=== PATIENT | male | born 1950 | race Caucasian/White ===

== ENCOUNTER 2016-05-21 09:11 | Inpatient (IN) | payer OTHER ==
[2016-05-10 08:53] VITALS: BMI 29.0
--- NOTE | 2016-05-10 09:27 | PAT Medication Instructions ---
Service Date May 10, 2016. Current Home Medication List Acetaminophen (Tylenol), 650 MG PO PRN Albuterol Inhaler (Ventolin Inhaler), 2 PUFFS INH Q4 PRN for SOB/Wheezing Amlodipine Besylate (Norvasc), 10 MG PO QAM Aspirin Enteric Coated (Ecotrin Or Generic *), 81 MG PO QAM Atorvastatin (Lipitor), 80 MG PO QPM Folic Acid (Folvite *), 1 MG PO QAM Hctz/Losartan (Hyzaar 25MG/100MG), 1 TAB PO QAM Ibuprofen (Advil), 600 MG PO PRN Metoprolol Tartrate (Lopressor) (Lopressor), 50 MG PO BID Nitroglycerin (Nitrostat), 0.4 MG UT UD PRN for Chest Pain Polyethylene Glycol-Propylene (Systane Ultra), 1 DROPS OP QID PRN for dry eyes Tiotropium Desha (Spiriva Handihaler), 1 CAP INH QAM Medication Instructions For Your Scheduled Surgery - Continue as directed: Nitroglycerin (Nitrostat), 0.4 MG UT UD PRN for Chest Pain - Hold the following medications the morning of surgery: Hctz/Losartan (Hyzaar 25MG/100MG), 1 TAB PO QAM Folic Acid (Folvite *), 1 MG PO QAM Ibuprofen (Advil), 600 MG PO PRN - Take the following medications the morning of surgery with a sip of water OTHERWISE NOTHING TO EAT OR DRINK AFTER MIDNIGHT: Amlodipine Besylate (Norvasc), 10 MG PO QAM Aspirin Enteric Coated (Ecotrin Or Generic *), 81 MG PO QAM Tiotropium Desha (Spiriva Handihaler), 1 CAP INH QAM Albuterol Inhaler (Ventolin Inhaler), 2 PUFFS INH Q4 PRN for SOB/Wheezing (use if needed; BRING TO HOSPITAL) Acetaminophen (Tylenol), 650 MG PO PRN (may take if needed up to 4 hours prior to surgery) Metoprolol Tartrate (Lopressor) (Lopressor), 50 MG PO BID Polyethylene Glycol-Propylene (Systane Ultra), 1 DROPS OP QID PRN for dry eyes - Take the following medications as scheduled the night before surgery: Atorvastatin (Lipitor), 80 MG PO QPM Albuterol Inhaler (Ventolin Inhaler), 2 PUFFS INH Q4 PRN for SOB/Wheezing Acetaminophen (Tylenol), 650 MG PO PRN Metoprolol Tartrate (Lopressor) (Lopressor), 50 MG PO BID Polyethylene Glycol-Propylene (Systane Ultra), 1 DROPS OP QID PRN for dry eyes If you have any questions please call us at [phone] (Vickie Osorio PA-C ) or [phone] or [phone]
[2016-05-10 10:57] LABS: BASO % 1.2 %; BASO ABS # 0.11 K/uL (0-0.2); COMPLETE YES; EOS % 2.1 %; HEMATOCRIT 44.8 % (42-52); IG% 0.2 %; LYMPH % 28.8 %; LYMPH ABS # 2.74 K/uL (1.2-3.4); MEAN CELL VOLUME 91.6 fL (80-100); MEAN CORPUSCULAR HEMOGLOBIN 32.5 pg (25-34); MEAN CORPUSCULAR HGB CONC 35.5 g/dl (32-36); MONO % 7.3 %; NEUT % 60.4 %; PLATELET COUNT 281 K/uL (130-400); RED BLOOD COUNT 4.89 M/uL (4.7-6.1)
[2016-05-10 10:59] LABS: URINE APPEARANCE CLEAR (CLEAR); URINE BILIRUBIN NEG (NEG); URINE COLOR YELLOW; URINE NITRITE NEG (NEG); URINE SPECIFIC GRAVITY 1.002 (1.000-1.030); UROBILINOGEN NEG (NEG)
[2016-05-10 11:05] LABS: MANUAL MICROSCOPIC REQUIRED? NO; REVIEW REQ? NO
[2016-05-10 11:21] LABS: BUN/CREATININE RATIO 13.2 (10-20); CALCIUM 10.4 mg/dl (8.5-10.1); CREATININE 1.5 mg/dl (0.60-1.40); POTASSIUM 4.4 mmol/L (3.5-5.1)
[~2016-05-21] VITALS: Ht 165.1 cm; Wt 79.3 kg
[2016-05-21] VITALS (10 sets, daily range): BP systolic 102–170; BP diastolic 67–80; PULSE 75–105; TEMP 36.3–37.1; O2SAT 94–100; Ht 165.1 cm; Wt 79.3 kg
--- NOTE | 2016-05-21 07:30 | History & Physical Bridge Note ---
H&P Re-Evaluation Bridge Note: I have examined the patient, reviewed the History & Physical and in the interval since the performance of the History & Physical I have noted the following changes of clinical significance: No changes noted
[~2016-05-21 09:11] MED LIST: ACET-1311 PO; ALBUAER19 INH; AMLO10TA2 PO; ASPEC81 PO; ATOR-26 PO; FENTANYL CITRATE INJ 50 MCG/1 ML 2 ML VIAL ONE; FLV1 PO; HYZ/10015 PO; IBUP-1050 PO; LACTATED RINGER'S 1000ML 1,000 ML IV SCH; METO50TA16 PO; MIDAZOLAM HCL 1 MG/ML 2ML VIAL ONE; NITR0.4S UT; POLY1SOL6 OP; SPRIN/30 INH
[2016-05-21] MEDS ORDERED: NURSING VERBAL MED ORDER ONE ×2 (09:45→10:00)
[2016-05-21] MEDS ORDERED: CEFAZOLIN IV 2,000 MG/60 ML D5W IV ONE (09:47)
--- NOTE | 2016-05-21 10:15 | History and Physical ---
History & Physical Date & Time of Service: May 21, 2016 at 10:10 Chief Complaint: Lumbar Spinal Stenosis Primary Care Physician: Earl Simmons M.D. History of Present Illness Source: patient Patient with Hx of a fusion L5-S1 in 2009 presents with worsening back and left leg pain. Failed conservative measures presents for surgery. Past Medical/Surgical History Medical Problems: (1) Asbestos pneumoconiosis Status: Chronic (2) CAD (coronary artery disease) Permanent Comment: S/p CABG x 2 in 2003 Cardiac cath 2009 showed patent ARREDONDO to LAD, 70% stenosis of the LAD distal to the touchdown of the ARREDONDO graft, occluded vein graft to the RPDA Nuclear stress test 10/2013- negative for ischemia, normal LVEF Status: Chronic (3) Carotid stenosis, non-symptomatic Status: Chronic (4) COPD (chronic obstructive pulmonary disease) Status: Chronic (5) History of colonic polyps Status: Chronic (6) Hyperlipidemia Status: Chronic (7) Hypertension Status: Chronic Surgical Problems: (1) S/P CABG x 2 Status: Chronic (2) S/P lumbar spinal fusion Status: Chronic Family History FH: CAD (coronary artery disease) FATHER MOTHER Hypertension FATHER MOTHER Social History Smoking Status: Former Smoker Marital Status: Housing status: lives with family Immunizations History of Influenza Vaccine: Yes History of Tetanus Vaccine?: Yes History of Pneumococcal: Yes History of Hepatitis B Vaccine: No Allergies Coded Allergies: No Known Allergies (Unverified , 05/21/16) Home Medications Scheduled Acetaminophen (Tylenol), 650 MG PO PRN Amlodipine Besylate (Norvasc), 10 MG PO QAM Aspirin Enteric Coated (Ecotrin Or Generic *), 81 MG PO QAM Atorvastatin (Lipitor), 80 MG PO QPM Folic Acid (Folvite *), 1 MG PO QAM Hctz/Losartan (Hyzaar 25MG/100MG), 1 TAB PO QAM Ibuprofen (Advil), 600 MG PO PRN Metoprolol Tartrate (Lopressor) (Lopressor), 50 MG PO BID Tiotropium Limon (Spiriva Handihaler), 1 CAP INH QAM Scheduled PRN Albuterol Inhaler (Ventolin Inhaler), 2 PUFFS INH Q4 PRN for SOB/Wheezing Nitroglycerin (Nitrostat), 0.4 MG UT UD PRN for Chest Pain Polyethylene Glycol-Propylene (Systane Ultra), 1 DROPS OP QID PRN for dry eyes Physical Exam Vital Signs Date Time Temp Pulse Resp B/P Pulse Ox O2 Delivery O2 Flow Rate FiO2 05/21/16 09:47 37.1 75 18 170/80 97 Room Air General Appearance: WD/WN Head: normocephalic Eyes: normal inspection ENT: normal ENT inspection Neck: supple, no adenopathy Respiratory/Chest: chest non-tender, lungs clear Cardiovascular: regular rate, rhythm, no edema Abdomen/GI: normal bowel sounds, non tender Genitourinary - Male: normal male genitalia, normal phallus Back: + muscle spasm Extremities/Musculoskelatal: normal inspection, no calf tenderness 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 Will proceed with removal of hardware L5-S1, decompress and fuse L3to L5, possibly S1. Advanced Directives Existing Advance Directive: No Existing Living Will: Yes Existing Power of Belting Cutter: Yes
[2016-05-21] MEDS ORDERED: ONDANSETRON INJ 2 MG/ML 2 ML VIAL IV PRN ×2 (10:30→12:30)
[2016-05-21] MEDS ORDERED: ATROPINE SULFATE 0.1 MG/ML 5ML SYR IV PRN (10:30)
[2016-05-21] MEDS ORDERED: LABETALOL HCL IV 5 MG/ML 20ML IV PRN (10:30)
[2016-05-21] MEDS ORDERED: HYDROmorphone INJ 2 MG/ML SYR/VIAL ONE (10:48)
[2016-05-21] MEDS ORDERED: BUPIVACAINE/EPINEPHRINE 0.5% MPF 1:200,000 30 ML VIAL INJ ONE (11:07)
[2016-05-21] MEDS ORDERED: DEXAMETHASONE SOD INJ 4 MG/ML VIAL ONE (11:14)
[2016-05-21] MEDS ORDERED: PHENYLEPHRINE HCL INJ 10 MG/ML VIAL ONE (11:14)
[2016-05-21] MEDS ORDERED: ROCURONIUM BROMIDE 10 MG/ML 5 ML VIAL ONE (11:14)
[2016-05-21] MEDS ORDERED: PHENYLEPHRINE 100MCG/ML 5ML SYR ONE (11:14)
[2016-05-21] MEDS ORDERED: LIDOCAINE HCL 2% 2 ML VIAL (20MG/ML) ONE (11:14)
[2016-05-21] MEDS ORDERED: PROPOFOL IV EMULSION 10 MG/ML 20 ML VIAL IV ONE (11:14)
[2016-05-21] MEDS ORDERED: LARYING-O-JET KIT (LTA) EXT ONE ×2 (11:47)
[2016-05-21] MEDS ORDERED: FENTANYL CITRATE INJ 50 MCG/1 ML 2 ML VIAL ONE (12:16)
[2016-05-21] MEDS ORDERED: FLOSEAL HEMOSTATIC MATRIX 10ML TOP ONE (12:23)
[2016-05-21] MEDS ORDERED: BACITRACIN 50000 UNIT VIAL IR ONE (12:23)
[2016-05-21] MEDS ORDERED: SODIUM CHLORIDE 0.9% 1000ML 1,000 ML IV SCH (12:26)
--- NOTE | 2016-05-21 12:26 | [facility] Post Operative Brief Note ---
Immediate Operative Summary Operative Date May 21, 2016. Pre-Operative Diagnosis L3-L5 spinal stenosis, history of prior lumbar fusion L5-S1 Post-Operative Diagnosis same as preop Procedure(s) Performed L3-L5 Decompression and posterior instrumented fusion; L5-S1 hardware removal; L4-L5 application of interbody cage; use of bone morphogenetic protein and Eliane allograft Surgeon Dr. Chowdhury Outside Machinist Apprentice Surgeon(s) Jax Bhat PA-C Estimated Blood Loss 350 ML Findings stenosis Specimens A: Removed hardware L5-S1
[2016-05-21] MEDS ORDERED: LORAZEPAM 0.5 MG TAB PO PRN (12:30)
[2016-05-21] MEDS ORDERED: METOCLOPRAMIDE HCL INJ 5 MG/ML 2 ML VIAL IV PRN (12:30)
[2016-05-21] MEDS ORDERED: LORAZEPAM INJ 0.5 MG in SYRINGE 0.75 ML IV PRN (12:30)
[2016-05-21] MEDS ORDERED: MAGNESIUM HYDROXIDE SUSP 30 ML UDC PO PRN (12:30)
[2016-05-21] MEDS ORDERED: ACETAMINOPHEN IV 100 ML IV PRN (12:30)
[2016-05-21] MEDS ORDERED: NALOXONE HCL 0.4 MG/1 ML VIAL/CARP IV PRN ×2 (12:30)
[2016-05-21] MEDS ORDERED: DO NOT ADMINISTER FLU VACCINE PRN ×3 (12:30)
[2016-05-21] MEDS ORDERED: NITROGLYCERIN 0.4 MG SL PER TAB CHARGE UT PRN (12:30)
[2016-05-21] MEDS ORDERED: FAMOTIDINE 20 MG TAB PO PRN (12:30)
[2016-05-21] MEDS ORDERED: DO NOT ADMINISTER PNEUMOCOCCAL VACCINE PRN ×2 (12:30)
[2016-05-21] MEDS ORDERED: BISACODYL 10 MG SUPP PR PRN (12:30)
[2016-05-21] MEDS ORDERED: ALUMINUM/MAGNESIUM SUSP 30 ML UDC PO PRN (12:30)
[2016-05-21] MEDS ORDERED: hydrOXYzine HCL 25 MG TAB PO PRN (12:30)
[2016-05-21] MEDS ORDERED: PROMETHAZINE HCL INJ 12.5 MG in SODIUM CHLORIDE 0.9% 50ML 50 ML IV PRN (12:30)
[2016-05-21] MEDS ORDERED: SOD PHOSPHATE/SOD BIPHOSPHATE ENEMA 132 ML BTL PR PRN (12:30)
[2016-05-21] MEDS ORDERED: ACETAMINOPHEN 500 MG TAB PO PRN (12:30)
[2016-05-21] MEDS ORDERED: ALBUTEROL HFA 8 GM INHALER INH PRN (12:30)
--- NOTE | 2016-05-21 12:48 | OPERATIVE REPORT ---
DATE OF OPERATION: 05/21/2016 PREOPERATIVE DIAGNOSIS: Spinal stenosis. POSTOPERATIVE DIAGNOSIS: Same. PROCEDURE PERFORMED: 1. Removal of posterior instrumentation L5-S1. 2. Exploration of fusion L5-S1. 3. Lumbar decompression, medial facetectomies, foraminotomies L2-L3, L3-L4, L4-L5. 4. Posterior spinal fusion L3-L4, L4-L5. 5. Placement of posterior segmental instrumentation using Orthros rods and screws L3-L4, L4-L5. 6. Interbody fusion L4-L5. 7. Placement of PEEK cage 10 x 26 mm at L4-L5. 8. Placement of locally harvested morselized autograft posterior gutters. 9. Placement of Infuse collagen sponge combined with Mastergraft in posterior gutters and Eliane bone grafting in the interbody space. SURGEON: Dr. Gregg Chowdhury. BATTERY TECHNICIAN: Devyn Bhat PA-C. Due to the complex nature of the procedure, the entire surgery was performed with the assistant paralegal of Devyn Bhat PA-C. The bilingual sales assistant, under direct supervision, was involved in the actual performance of all aspects of the surgical procedure including hemostasis, tissue retraction and incision, instrument management, patient positioning, and wound closure. ANESTHESIA: General. DISPOSITION: The patient awakened and taken to PACU in stable condition. HISTORY OF PATIENT'S PROBLEMS: A 66-year-old male who presents with above-mentioned diagnosis. After failing an extensive course of nonoperative care, elected to undergo the above-mentioned procedure. Risks, benefits, pros, cons, and alternatives were outlined in detail preoperatively. OPERATION AND FINDINGS: PROCEDURE: The patient was met with preoperatively, case discussed and all questions were addressed. At that point the patient was taken back to operative suite and after undergoing successful general endotracheal intubation via department of anesthesia was placed in prone position on the Donato table on top of the Anirudh frame. All bony prominences were well padded and the eyes were inspected to ensure there was no external pressure placed upon them. At this point, the lumbar spine was prepped and draped in normal sterile fashion. Sharp dissection with the assistance of Bovie cautery was performed down to and exposing the lamina and transverse processes of L3, 4 and instrumentation at L5-S1 levels bilaterally. I then proceeded to remove the hardware at L5-S1 bilaterally exploring the fusion mass noting it to be intact. I then performed a complete laminectomy of 4, 3, partial laminectomy of L2 addressing severe lateral recess foraminal stenosis as well as marked epidural lipomatosis. After this was complete, pedicle screws were then placed in 3, 4, 5 bilaterally with the assistance of fluoroscopy and appropriate size fred provisionally placed. Through a transforaminal approach on the left a complete discectomy of L4-5 was performed, endplates curetted to subcortical bleeding bone and an 11 x 26 mm PEEK cage filled with Eliane bone grafting tapped into position. The rods were then locked into final position bilaterally and transverse processes of 3, 4, and 5 burred to subcortical bleeding bone. Infuse collagen sponge combined with Mastergraft and locally harvested morselized autograft was placed in the posterior gutters. A 7 flat NIRMALA drain was inserted. Incision was closed with 1-0 Vicryl in the fascia, 2-0 Vicryl subcutaneously, 4-0 Monocryl for final skin closure. Steri-Strips and sterile dressing placed. The patient was awakened and taken to PACU in stable condition. I attest to the content of the Intraoperative Record and any orders documented therein. Any exceptio ns are noted below.
[2016-05-21] MEDS ORDERED: HYDROmorphone HCL 0.5MG/ML 50 ML CASSETTE ONE (12:49)
[2016-05-21] MEDS: HYDROmorphone INJ 2 MG/ML SYR/VIAL IV PRN ×4 (12:55→13:10)
--- NOTE | 2016-05-21 13:04 | DIAGNOSTIC IMAGING REPORT ---
LUMBAR SPINE, INTRAOPERATIVE FLUOROSCOPY HISTORY: L3-L5 decompression fusion. FLUOROSCOPY TIME: 11 seconds. FINDINGS: Intraoperative fluoroscopy was provided for the lumbar spine. 2 fluoroscopic spot images were obtained. L3-L5 posterior decompression fusion with pedicle screws and rods. The hardware appears intact. IMPRESSION: Fluoroscopy provided for a L3-L5 posterior decompression and fusion. Electronically signed by: Chris Keith M.D. 05/21/2016 1:02 PM Dictated Date/Time: 05/21/2016 1:02 PM
--- NOTE | 2016-05-21 13:19 | Anesthesiology Progress Note ---
Anesthesia Post Op Note Date & Time May 21, 2016 at 13:19 Vital Signs Pain Intensity: 3 Vital Signs Past 12 Hours Date Time Temp Pulse Resp B/P Pulse Ox O2 Delivery O2 Flow Rate FiO2 05/21/16 13:15 89 14 107/71 97 Nasal Cannula 3 05/21/16 13:05 88 16 118/73 100 Mask 10 05/21/16 12:55 86 16 128/75 100 Mask 10 05/21/16 12:51 36.3 88 16 153/82 100 Mask 10 05/21/16 09:47 37.1 75 18 170/80 97 Room Air Notes Mental Status: alert / awake / arousable, participated in evaluation Pt Amnestic to Procedure: Yes Nausea / Vomiting: adequately controlled Pain: adequately controlled Airway Patency, RR, SpO2: stable & adequate BP & HR: stable & adequate Hydration State: stable & adequate Anesthetic Complications: no major complications apparent
[2016-05-21] MEDS: HYDROmorphone HCL 0.5MG/ML 50 ML CASSETTE IV PRN ×2 (15:06→22:49)
[2016-05-21] MEDS: LACTATED RINGER'S 1000ML 1,000 ML IV SCH ×2 (17:13→20:11)
[2016-05-21] MEDS: CEFAZOLIN IV 1,000 MG in DEXTROSE 5% 50ML 50 ML IV SCH (17:15)
[2016-05-21] MEDS: DEXAMETHASONE INJ 6 MG in SYRINGE 0 ML IV SCH (17:16)
[2016-05-21] MEDS: ATORVASTATIN 40 MG TAB PO SCH (20:43)
[2016-05-21] MEDS: METOPROLOL TARTRATE 50 MG TAB PO SCH (20:43)
[2016-05-21] MEDS: DOCUSATE SODIUM/SENNA 50/8.6MG TAB PO SCH (20:43)
[2016-05-22] MEDS: LACTATED RINGER'S 1000ML 1,000 ML IV SCH (00:51)
[2016-05-22] MEDS: DEXAMETHASONE INJ 6 MG in SYRINGE 0 ML IV SCH ×2 (02:08→10:39)
[2016-05-22] MEDS: CEFAZOLIN IV 1,000 MG in DEXTROSE 5% 50ML 50 ML IV SCH (02:09)
[2016-05-22 03:47] VITALS: BP 131/82; PULSE 94; TEMP 36.5; O2SAT 95
[2016-05-22] MEDS ORDERED: HYDROmorphone INJ 0.5 MG/0.5 ML SYR IV PRN (06:00)
[2016-05-22] MEDS ORDERED: DC PCA SCH (06:00)
[2016-05-22 06:05] LABS: COMPLETE YES; HEMATOCRIT 30.4 % (42-52); IG% 0.3 %; LYMPH % 10.8 %; LYMPH ABS # 1.26 K/uL (1.2-3.4); MEAN CELL VOLUME 92.7 fL (80-100); MEAN CORPUSCULAR HEMOGLOBIN 31.4 pg (25-34); MEAN CORPUSCULAR HGB CONC 33.9 g/dl (32-36); MEAN PLATELET VOLUME 9.4 fL (7.4-10.4); MONO % 7.5 %; NEUT % 81.4 %; PLATELET COUNT 207 K/uL (130-400); RED BLOOD COUNT 3.28 M/uL (4.7-6.1); WHITE BLOOD COUNT 11.65 K/uL (4.8-10.8)
[2016-05-22] MEDS ORDERED: NURSING VERBAL MED ORDER ONE (06:15)
[2016-05-22 06:36] LABS: BUN/CREATININE RATIO 16.2 (10-20); POTASSIUM 4.1 mmol/L (3.5-5.1)
[2016-05-22 07:25] VITALS: BP 133/81; PULSE 96; TEMP 36.9; O2SAT 95
[2016-05-22] MEDS: AMLODIPINE BESYLATE 5 MG TAB PO SCH (08:58)
[2016-05-22] MEDS: LOSARTAN/HCTZ 50-12.5 EA TAB PO SCH (08:58)
[2016-05-22] MEDS: ASPIRIN 81 MG ECTAB PO SCH (08:58)
[2016-05-22] MEDS: TIOTROPIUM BROMIDE 5 PUFF/90 MCG INH INH SCH (08:59)
[2016-05-22] MEDS: METOPROLOL TARTRATE 50 MG TAB PO SCH ×2 (08:59→21:50)
[2016-05-22] MEDS: OXYCODONE HCL IR 5 MG TAB (IMMEDIATE RELEASE) PO PRN ×4 (09:03→23:18)
[2016-05-22] MEDS ORDERED: RXC5 PO (10:04)
--- NOTE | 2016-05-22 10:05 | Discharge Instructions ---
Discharge Instructions Admission Reason for Admission: Lumbar Spinal Stenosis Discharge Discharge Diagnosis / Problem: stenosis Discharge Goals Goal(s): Improve function Activity Recommendations Activity Limitations: per Instructions/Follow-up section . Instructions / Follow-Up Instructions / Follow-Up ACTIVITY RECOMMENDATIONS: SELF CARE INSTRUCTIONS AFTER THORACIC/LUMBAR FUSIONS 1. You may walk to your tolerance. It is good exercise for your legs and back. Expect some back and intermittent leg aches and pains. 2. You may perform "counter-top" level activities (make a sandwich, tasha with a project, etc.). 3. No bending or lifting of more than 10 pounds or back twisting of any nature (roll like a log when turning in bed). 4. You may ride in a car for 20-30 minutes at a time. No driving until after your first visit with your doctor. 5. Frequent changes of position and restricting sitting to 30 minutes at a time will help limit the amount of back spasms and stiffness you may experience. 6. You may discontinue the use of ambulatory aids (cane, crutches, etc.) once your strength and confidence allow. 7. You may creative writing teacher the shower and let water strike your incision when you arrive home at least once daily. Do not take a tub bath, sit in a hot tub or go into a swimming pool until after your first recheck in the office. SPECIAL CARE INSTRUCTIONS: VERY IMPORTANT TO READ AND REVIEW A. Your surgical incision has been closed with a cosmetic suture under the skin that will dissolve in about 6 weeks. In 14 days, you can use a pair of clean scissors and cut the suture that is left outside of the skin at the ends of your incision. 1. The small skin tapes can be removed 7 days after surgery if they have not fallen off by that point. 2. You may keep the wound open to air as much as possible to promote healing after post-op day number 5 unless told otherwise by your doctor. 3. If you think the wound looks like it is becoming infected (redness or worsening drainage) and/or you are experiencing fever, chill or worsening back pain and muscle spasms, contact the office so that we may evaluate you as soon as possible. B. Complications are uncommon, but please contact us if you have any signs or symptoms of: 1. wound infection (fever higher than 102.5 degrees F, redness, separation of wound, drainage, or increasing pain from the incision) 2. blood clots in legs (pain, swelling, redness and warmth in legs) 3. urinary tract infection (fever higher than 102.5 degrees F, burning upon urination or increased frequency of urination) 4. nerve problems (inability to walk on your toes or heels, numbness, loss of bowel or bladder control) 5. any other symptoms that concern you C. Please call the office at if you have any concerns or questions about your operation or recovery. D. No smoking! Smoking drastically decreases the chance of a solid fusion. E. Do not take any anti-inflammatory medications (Indocin, Advil, Motrin, Aspirin, Naprosyn, etc.) as these may inhibit the chance of a solid fusion. Tylenol is okay to take for pain. MANAGING PAIN AFTER SPINAL SURGERY 1. Narcotic medication is intended for short-term use and will be provided for surgical pain. Surgical pain usually lasts for a period of 4-6 weeks. Narcotic medication includes Percocet, Vicodin, Darvocet, Tylenol #3 or Lortab. 2. Longer-term pain is more appropriately treated with non-narcotic medication such as Tylenol ES. 3. Muscle spasm is not appropriately treated with narcotics. Muscle relaxers such as Soma, Flexeril or Skelaxin can be used along with Tylenol ES. 4. Remember that we all live with some "aches and pains". This is not unusual or uncommon after an injury or as we get older. a. Back pain is expected and may include muscle spasms for 4 to 6 weeks after surgery. The pain should gradually improve. If the pain worsens for no apparent reason, please contact the office. b. Intermittent leg pain may also be experienced and should not be concerned about unless it worsens for no apparent reason. If so, please contact the office. 5. We will provide appropriate medication within the normal guidelines of their prescribed use. We will also be very cautious and aware of potential abuse and extended duration of patients' medication needs. a. Pain medications are for your comfort and to assist with sleep and rest so that the tissue can heal. They are not provided in order to return to normal activity and should not be used through the day. To do so or worsening pain at night can result from ongoing tissue damage and development of tolerance to the prescribed medicine. 6. Please allow 2-3 days to process refills. Prescriptions will not be mailed but must be picked up at the office. FOLLOW UP VISIT: Keep your scheduled follow-up appointment. Any questions, please call the office at . Current Hospital Diet Patient's current hospital diet: Regular Diet Discharge Diet Recommended Diet: Regular Diet Procedures Procedures Performed: L3-L5 Decompression and posterior instrumented fusion; L5-S1 hardware removal; L4-L5 application of interbody cage; use of bone morphogenetic protein and Eliane allograft Pending Studies Studies pending at discharge: no Medical Emergencies . Who to Call and When: Medical Emergencies: If at any time you feel your situation is an emergency, please call 911 immediately. . Non-Emergent Contact Non-Emergency issues call your: Primary Care Provider . "Provider Documentation" section prepared by Gregg Chowdhury. VTE Core Measure Inpt VTE Proph given/why not?: Clemente Montenegro, SCD's
--- NOTE | 2016-05-22 10:12 | PROGRESS NOTE ---
DATE: 05/22/2016 SUBJECTIVE: Postop day #1. Back pain controlled. No leg pain. Vital signs stable. T-max 36.9. NIRMALA drained 90 mL. Hematocrit 30.4. OBJECTIVE: On exam, patient is in chair at bedside. Has good strength to testing, appears comfortable. ASSESSMENT: Status post lumbar decompression and fusion. PLAN: At this time, continue physical therapy, advance his bowel regimen and anticipate home tomorrow.
[2016-05-22 11:13] VITALS: BP 130/74; PULSE 80; TEMP 36.7; O2SAT 98
[2016-05-22] MEDS: CYCLOBENZAPRINE HCL 5 MG TAB PO SCH ×2 (13:33→21:50)
[2016-05-22 15:00] VITALS: BP 118/70; PULSE 84; TEMP 36.3; O2SAT 95
[2016-05-22 16:00] VITALS: O2SAT 95
[2016-05-22] MEDS: DOCUSATE SODIUM/SENNA 50/8.6MG TAB PO SCH (22:30)
[2016-05-22] MEDS: ATORVASTATIN 40 MG TAB PO SCH (22:30)
[2016-05-22 23:17] VITALS: BP 113/71; PULSE 90; TEMP 36.7; O2SAT 95
[2016-05-23] MEDS ORDERED: POLYETHYLENE (MIRALAX) 17 GM PACK PO SCH (06:00)
[2016-05-23 07:22] VITALS: BP 127/72; PULSE 94; TEMP 36.3; O2SAT 95
--- NOTE | 2016-05-23 07:55 | Orthopedic Progress Note ---
Orthopedic Progress Note Date of Service May 23, 2016. Subjective Additional Notes: Doing well w/ no issues to report. Medically stable. Objective calves soft nontender, N/V intact, capillary refill less than 2 sec., dressing C /D/I, A&O x3, toes mobile, hemovac drainage Date Time Temp Pulse Resp B/P Pulse Ox O2 Delivery O2 Flow Rate FiO2 05/23/16 07:22 36.3 94 19 127/72 95 Room Air 05/22/16 23:17 36.7 90 20 113/71 95 Room Air 05/22/16 23:15 Room Air 05/22/16 16:00 95 Room Air 05/22/16 15:00 36.3 84 16 118/70 95 Room Air 05/22/16 11:13 36.7 80 19 130/74 98 Room Air Assessment & Plan Assessment: s/p lumbar fusion Plan: Doing well, discharge home
[2016-05-23] MEDS ORDERED: TIZA4TAB3 PO (07:57)
[2016-05-23] MEDS: OXYCODONE HCL IR 5 MG TAB (IMMEDIATE RELEASE) PO PRN (08:59)
[2016-05-23] MEDS: LOSARTAN/HCTZ 50-12.5 EA TAB PO SCH (09:00)
[2016-05-23] MEDS: CYCLOBENZAPRINE HCL 5 MG TAB PO SCH (09:00)
[2016-05-23] MEDS: ASPIRIN 81 MG ECTAB PO SCH (09:00)
[2016-05-23] MEDS: AMLODIPINE BESYLATE 5 MG TAB PO SCH (09:02)
[2016-05-23 09:03] VITALS: BP 112/68; PULSE 91
[2016-05-23] MEDS: TIOTROPIUM BROMIDE 5 PUFF/90 MCG INH INH SCH (09:03)
[2016-05-23] MEDS: METOPROLOL TARTRATE 50 MG TAB PO SCH (09:25)
[2016-05-23 10:03] VITALS: BP 112/68; PULSE 91; TEMP 36.3; O2SAT 95
--- NOTE | 2016-05-28 14:45 | DISCHARGE SUMMARY ---
ADMITTING DIAGNOSIS: Spinal stenosis. OPERATION AND DATES: Removal of hardware L5-S1 with an L3-L5 decompression and instrumented fusion from L3-L5 performed on 05/21/2016. HOSPITAL COURSE AND TREATMENT: The patient is an individual with history and physical examination, radiographic images consistent with the above-mentioned diagnosis. For this reason, he was brought to the operating room and underwent the above-mentioned procedures performed by Dr. Chowdhury under general anesthesia. The patient left the operating room with NIRMALA drain and Vela in place and was transferred to the PACU in stable condition. He is placed on GI and DVT prophylaxis, transferred to the orthopedic floor for continued care. He was seen by physical therapy postop day 1 for ambulation and gait training. Throughout his hospital course, his calves remained supple and nontender. Dressings remained clean, dry and intact and on 05/23/2016, he was deemed safe for home discharge. He was to continue his prehospital medications and use oxycodone for pain control. He is to see us back in the office for an appointment in 2 weeks or sooner if he develops fevers, chills or increased pain.
== END 2016-05-23 11:50 | disposition home or self-care (01) | DRG 460 ==
LOC: ENRESERVTM → ENRESERVDT → C.ACU 09:11 → UNDOADMIN 10:00 → C.3E 10:00 → UNDOADMIN 12:29 → C.3E 12:29
PROVIDERS: ADMIT Orthopaedic Surgery Orthopaedic Surgery of the Spine; ATTEND Orthopaedic Surgery Orthopaedic Surgery of the Spine
PROC: 0SP004Z Removal of Internal Fixation Device from Lumbar Vertebral Joint, Open Approach (ICD-10-PCS; 2016-05-21)
PROC: 0SG10A1 (ICD-10-PCS; principal; 2016-05-21 10:30)
PROC: 0SG00K1 Fusion of Lumbar Vertebral Joint with Nonautologous Tissue Substitute, Posterior Approach, Posterior Column, Open Approach (ICD-10-PCS; 2016-05-21 10:30)
DX: M48.06 Spinal stenosis, lumbar region (principal); J44.9 Chronic obstructive pulmonary disease, unspecified; Z95.1 Presence of aortocoronary bypass graft; I25.10 Atherosclerotic heart disease of native coronary artery without angina pectoris; I10 Essential (primary) hypertension; E78.5 Hyperlipidemia, unspecified; Z87.891 Personal history of nicotine dependence

== ENCOUNTER 2017-04-05 23:02 | Inpatient (IN) | payer OTHER ==
[~2017-04-05] VITALS: Ht 165.1 cm; Wt 84.1 kg
[~2017-04-05 23:02] MED LIST changes: -FENTANYL CITRATE INJ 50 MCG/1 ML 2 ML VIAL ONE; -IBUP-1050 PO; -LACTATED RINGER'S 1000ML 1,000 ML IV SCH; -MIDAZOLAM HCL 1 MG/ML 2ML VIAL ONE; +RXC5 PO
[2017-04-05] MEDS ORDERED: ASPIRIN 81 MG CHEW PO STA (23:20)
[2017-04-05] MEDS ORDERED: NITROGLYCERIN OINT 2% 1GM PACKET ONE (23:20)
[2017-04-05] MEDS ORDERED: ASPIRIN 324 MG CHEW ONE (23:21)
[2017-04-05] MEDS ORDERED: OPTIRAY 320 IV PRN (23:30)
[2017-04-05] MEDS ORDERED: NITROGLYCERIN OINT 2% 1GM PACKET EXT ONE (23:30)
[2017-04-05 23:35] LABS: BASO % 0.1 %; BASO ABS # 0.02 K/uL (0-0.2); HEMATOCRIT 41.7 % (42-52); HEMOGLOBIN 14.6 g/dL (14.0-18.0); IG# 0.09 K/uL (0.00-0.02); LYMPH % 11.1 %; LYMPH ABS # 1.98 K/uL (1.2-3.4); MEAN CORPUSCULAR HEMOGLOBIN 33.3 pg (25-34); MEAN PLATELET VOLUME 9.6 fL (7.4-10.4); MONO % 9.3 %; MONO ABS # 1.66 K/uL (0.11-0.59); NEUT ABS # 14.15 K/uL (1.4-6.5); PLATELET COUNT 323 K/uL (130-400); RED CELL DISTRIBUTION WIDTH CV 14.1 % (11.5-14.5); RED CELL DISTRIBUTION WIDTH SD 49.4 fL (36.4-46.3)
[2017-04-05] MEDS ORDERED: SODIUM CHLORIDE 0.9% 500ML 500 ML IV STA (23:38)
[2017-04-05 23:40] LABS: ISTAT CREATININE 2.3 mg/dl (0.6-1.3); ISTAT IONIZED CALCIUM 1.32 mmol/l (1.12-1.32)
[2017-04-05] MEDS ORDERED: ONDANSETRON INJ 2 MG/ML 2 ML VIAL IV STA (23:48)
[2017-04-05] MEDS ORDERED: MoRPHine SULFATE 2 MG/ML CARP IV STA (23:48)
[2017-04-05] MEDS ORDERED: FOLI1TAB8 PO (23:53)
[2017-04-05] MEDS ORDERED: GABA-113 PO (23:53)
[2017-04-05] MEDS ORDERED: CLR10 PO (23:54)
[2017-04-05] MEDS ORDERED: MONT1TAB3 PO (23:54)
[2017-04-05] MEDS ORDERED: FLUT0.15 NAE (23:54)
[2017-04-05 23:55] LABS: ALBUMIN 4.1 gm/dl (3.4-5.0); ALT/SGPT 31 U/L (12-78); AST/SGOT 19 U/L (15-37); BLOOD UREA NITROGEN 36 mg/dl (7-18); CALCIUM 10.2 mg/dl (8.5-10.1); CARBON DIOXIDE 22 mmol/L (21-32); GLUCOSE 133 mg/dl (70-99); SODIUM 137 mmol/L (136-145)
[2017-04-05] MEDS ORDERED: ASPI81TA28 PO (23:56)
[2017-04-05] MEDS ORDERED: HEPARIN 25000 UNIT/500 ML D5W ONE (23:56)
[2017-04-05] MEDS ORDERED: POLY1SOL6 OP (23:56)
[2017-04-05] MEDS ORDERED: VNTHFA/IN INH (23:56)
[2017-04-05] MEDS ORDERED: HEPARIN SOD 5000 UNIT/0.5 ML CARP ONE (23:57)
[2017-04-06] VITALS (12 sets, daily range): BP systolic 123–176; BP diastolic 72–83; PULSE 81–104; TEMP 36.4–36.7; O2SAT 96–99; Ht 165.1 cm; Wt 84.1 kg
[2017-04-06] LABS: ALKALINE PHOSPHATASE 85 U/L (45-117); CKMB 2.9 ng/ml (0.5-3.6); TOTAL PROTEIN 8.5 gm/dl (6.4-8.2)
[2017-04-06] MEDS ORDERED: NITROGLYCERIN 0.4 MG SL PER TAB CHARGE SL PRN (00:30)
[2017-04-06 00:33] LABS: INR 0.9 (0.9-1.1); PTT PATIENT 23.1 SECONDS (21.0-31.0)
[2017-04-06] MEDS ORDERED: TICAGRELOR 90 MG TAB PO STA (00:47)
--- NOTE | 2017-04-06 01:09 | History and Physical ---
History & Physical Date & Time of Service: Apr 06, 2017 at 01:09 . Chief Complaint: chest pain, shortness of breath . Primary Care Physician: Earl Simmons M.D. . History of Present Illness Source: patient, clinic records, hospital records 67 YO male followed by Dr. Simmons for Family Medicine. Receives cardiac care with Pete Mott PA-C and Dr. Hoover. History of coronary artery disease, CKD, hypertension, dyslipidemia, COPD, and other problems as noted below. S/P 2-vessl CABG 2003. Preop stress echo in April 2016 demonstrated some equivocal EKG changes, but no new wall motion abnormalities with stress. He underwent lumbar decompression and fusion without incident. This morning around 06:15 he awakened to use the bathroom and experienced some chest tightness and SOB when ambulating back to the bedroom. He thought that his COPD was acting up and used his rescue inhaler with improvement of symptoms. He was loading some firewood in his yard around 14:00 and experienced chest pressure radiating to his throat and dyspnea. Again, he attributed the symptoms to his COPD and took another dose of rescue inhaler with improvement. Later cut and loaded some firewood without too much difficulty. This evening around 21:30 developed more severe midsternal chest pressure that radiated to his left arm, associated with SOB. No associated diaphoresis, nausea, or vomiting. Took 2 sublingual NTG tabs with relief. Came to ED for evaluation. Recurrent chest tightness in ED waiting room. EKG showed ST with downsloping ST depression inferiorly and laterally. Received O2, aspirin, nitroglycerin ointment with relief of symptoms. CT chest did not show any evidence of aortic dissection. Pain-free at time of my assessment. . Past Medical/Surgical History Chronic Medical Problems: (1) Asbestos pneumoconiosis Status: Chronic (2) CAD (coronary artery disease) Permanent Comment: S/p CABG x 2 in 2003 Cardiac cath 2009 showed patent ARREDONDO to LAD, 70% stenosis of the LAD distal to the touchdown of the ARREDONDO graft, occluded vein graft to the RPDA Nuclear stress test 10/2013- negative for ischemia, normal LVEF Status: Chronic (3) Carotid stenosis, non-symptomatic Status: Chronic (4) COPD (chronic obstructive pulmonary disease) Status: Chronic (5) History of colonic polyps Status: Chronic (6) Hyperlipidemia Status: Chronic (7) Hypertension Status: Chronic Surgical Problems: (1) S/P CABG x 2 Status: Chronic (2) S/P lumbar spinal fusion Status: Chronic . Family History FATHER FH: CAD (coronary artery disease) Hypertension MOTHER FH: CAD (coronary artery disease) Hypertension Social History Smoking Status: Former Smoker Alcohol Use: 2 beers + 3 shots daily Marital Status: Housing status: lives with family Immunizations History of Influenza Vaccine: Yes History of Tetanus Vaccine?: Yes History of Pneumococcal: Yes History of Hepatitis B Vaccine: No Allergies Coded Allergies: No Known Allergies (Unverified , 04/05/17) Home Medications Scheduled Amlodipine Besylate (Norvasc), 10 MG PO QAM Aspirin (Aspirin Ec), 81 MG PO DAILY Atorvastatin (Lipitor), 80 MG PO QPM Fluticasone Propionate (Nasal) (Flonase Allergy Relief), 2 SPRY KYLEE DAILY Folic Acid (Folvite), 1 MG PO DAILY Gabapentin (Neurontin), 300 MG PO TID Hctz/Losartan (Hyzaar 25MG/100MG), 1 TAB PO QAM Loratadine (Claritin), 10 MG PO DAILY Metoprolol Tartrate (Lopressor) (Lopressor), 50 MG PO BID Montelukast Sodium (Singulair), 10 MG PO DAILY Tiotropium Dulac (Spiriva Handihaler), 1 CAP INH QAM Scheduled PRN Albuterol Hfa (Ventolin Hfa), 2 PUFFS INH Q4 PRN for SOB/Wheezing Nitroglycerin (Nitrostat), 0.4 MG UT UD PRN for Chest Pain Polyethylene Glycol-Propylene (Systane Ultra), 1-2 DROPS OP UD PRN for dry eyes Review of Systems Constitutional: + problem reported (has gained a few pounds), No fever Eyes: No worsening of vision, No diplopia ENT: + hearing loss, + nasal symptoms Respiratory: + cough, + wheezing Cardiovascular: + problem reported (as noted in HPI) Abdomen: No pain, No nausea, No vomiting, No diarrhea, No GI bleeding Genitourinary - Male: No hematuria, No dysuria Neurologic: + problem reported (mild headache after receiving NTG) Endocrine: No excessive thirst, No excessive urination Hematologic / Lymphatic: No abnormal bleeding/bruising, No swollen lymph nodes Integumentary: No rash Physical Exam Vital Signs Date Time Temp Pulse Resp B/P (MAP) Pulse Ox O2 Delivery O2 Flow Rate FiO2 04/06/17 00:52 110 25 97 Nasal Cannula 2.0 04/06/17 00:46 164/86 04/06/17 00:37 105 17 96 04/06/17 00:31 139/82 04/06/17 00:22 113 15 97 04/06/17 00:17 110 15 97 04/06/17 00:16 181/94 04/06/17 00:02 105 19 98 04/06/17 00:01 153/89 04/05/17 23:47 108 26 161/80 97 Nasal Cannula 2.0 04/05/17 23:40 180/93 04/05/17 23:31 115 04/05/17 23:25 169/83 04/05/17 23:17 36.5 113 16 174/83 95 Room Air General Appearance: WD/WN, no apparent distress Head: normocephalic, atraumatic Eyes: normal inspection, PERRL, EOMI, sclerae normal, + pertinent finding ( conjunctivae clear) ENT: normal ENT inspection, hearing grossly normal, pharynx normal Neck: supple, no adenopathy, thyroid normal, no JVD, trachea midline Respiratory/Chest: no respiratory distress, no accessory muscle use, + wheezing (diffuse, mild) Cardiovascular: regular rate, rhythm, no edema, no gallop, no JVD, normal peripheral pulses, + systolic murmur (II/ sys murmur at base) Abdomen/GI: normal bowel sounds, non tender, soft, no organomegaly, no pulsatile mass Extremities/Musculoskelatal: normal inspection, no calf tenderness, normal capillary refill, no pedal edema 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 II-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 nml as tested (PERRL, EOMI, no facial palsy, no dysarthria), no motor/sensory deficits (upper and lower extremity strength intact), alert, normal mood/affect, oriented x 3 Skin: normal color, warm/dry, no rash Lymphatic: no adenopathy (cervical) Diagnostics Laboratory Results Results Past 24 Hours Test 04/05/17 23:13 04/05/17 23:27 04/05/17 23:28 Range/Units White Blood Count 17.90 4.8-10.8 K/uL Red Blood Count 4.39 4.7-6.1 M/uL Hemoglobin 14.6 14.0-18.0 g/dL Hematocrit 41.7 42-52 % Mean Corpuscular Volume 95.0 80-100 fL Mean Corpuscular Hemoglobin 33.3 25-34 pg Mean Corpuscular Hemoglobin Concent 35.0 32-36 g/dl Platelet Count 323 130-400 K/uL Mean Platelet Volume 9.6 7.4-10.4 fL Neutrophils (%) (Auto) 79.0 % Lymphocytes (%) (Auto) 11.1 % Monocytes (%) (Auto) 9.3 % Eosinophils (%) (Auto) 0.0 % Basophils (%) (Auto) 0.1 % Neutrophils # (Auto) 14.15 1.4-6.5 K/uL Lymphocytes # (Auto) 1.98 1.2-3.4 K/uL Monocytes # (Auto) 1.66 0.11-0.59 K/uL Eosinophils # (Auto) 0.00 0-0.5 K/uL Basophils # (Auto) 0.02 0-0.2 K/uL RDW Standard Deviation 49.4 36.4-46.3 fL RDW Coefficient of Variation 14.1 11.5-14.5 % Immature Granulocyte % (Auto) 0.5 % Immature Granulocyte # (Auto) 0.09 0.00-0.02 K/uL Prothrombin Time 9.8 9.0-12.0 SECONDS Prothromb Time International Ratio 0.9 0.9-1.1 Activated Partial Thromboplast Time 23.1 21.0-31.0 SECONDS Partial Thromboplastin Ratio 0.9 Sodium Level 137 136-145 mmol/L Potassium Level 4.0 3.5-5.1 mmol/L Chloride Level 104 98-107 mmol/L Carbon Dioxide Level 22 21-32 mmol/L Anion Gap 11.0 18.0 16-25 mmol/L Blood Urea Nitrogen 36 7-18 mg/dl Creatinine 2.10 0.60-1.40 mg/dl Est Creatinine Clear Calc Drug Dose 35.8 ml/min Estimated GFR () 37.2 Estimated GFR (Non- 32.1 BUN/Creatinine Ratio 17.2 10-20 Random Glucose 133 70-99 mg/dl Calcium Level 10.2 8.5-10.1 mg/dl Magnesium Level 2.5 1.8-2.4 mg/dl Total Bilirubin 0.2 0.2-1 mg/dl Direct Bilirubin < 0.1 0-0.2 mg/dl Aspartate Amino Transf (AST/SGOT) 19 15-37 U/L Alanine Aminotransferase (ALT/SGPT) 31 12-78 U/L Alkaline Phosphatase 85 45-117 U/L Total Creatine Kinase 97 39-308 U/L Creatine Kinase MB 2.9 0.5-3.6 ng/ml Creatine Kinase MB Ratio 3.0 0-3.0 Total Protein 8.5 6.4-8.2 gm/dl Albumin 4.1 3.4-5.0 gm/dl Bedside Hemoglobin 13.6 14.0-18.0 g/dl Bedside Hematocrit 40 42-52 % Bedside Sodium 140 135-144 mEq/L Bedside Potassium 4.0 3.3-5.0 mEq/L Bedside Chloride 104 101-112 mEq/L Bedside Total CO2 22 24-31 mEq/l Bedside Blood Urea Nitrogen 35 7-18 mg/dl Bedside Creatinine 2.3 0.6-1.3 mg/dl Bedside Glucose (other) 138 70-99 mg/dl Bedside Ionized Calcium (Latricia) 1.32 1.12-1.32 mmol/l Bedside Troponin I 0.550 0-0.045 ng/ml Diagnostic Radiology Chest x-ray reviewed and demonstrated cardiomegaly, no infiltrates, effusions, CHF. (preliminary interpretation by undersigned, formal report pending) CT chest negative for aortic dissection. Previous described pleural plaques were noted. (preliminary report by [facility]) . EKG EKG performed at 23:[address] at 111 / minute, ST depression inferiorly and anterolaterally (most pronounced with downsloping ST depression ~ 3 mm V4-5). EKG performed at 23:[address] at 112 / minute, similar ST depression inferiorly and anterolaterally. EKG performed at 23:47reviewed and demonstrated ST at 109 / minute, less pronounced ST depression inferiorly and anterolaterally. . Impression Assessment and Plan CHEST PAIN / CORONARY ARTERY DISEASE History of ischemic heart disease, s/p 2-vessel CABG 2003 with ARREDONDO to LAD and SVG to right PDA. Repeat cath around 2009 demonstrated patent ARREDONDO to LAD and occluded SVG to right PDA. Proximal LAD was occluded. 70% stenosis of LAD distal to ARREDONDO graft insertion was noted. Also noted to have 40% stenosis of RCA and 60% stenosis of proximal right PDA. Stress echo April 2016 did not show any stress-induced wall motion abnormalities. Experienced exertional chest pain and dyspnea today, relieved by NTG. EKG changes as noted above. Serum troponin 0.5. Probable non-STEMI. Received aspirin, NTP, and IV heparin in ED. Already took evening dose of metoprolol at home. Check serial cardiac markers. Check echo. Continue aspirin. Add ticagrelor for dual antiplatelet therapy. Continue IV heparin. Continue metoprolol and nitrates. Continue atorvastatin. Consult Cardiology. NPO pending recommendations. HYPERTENSION Hold HCTZ due to elevated creatinine. Continue metoprolol, amlodipine, losartan. Follow and titrate therapy. CKD III / RON Baseline serum creatinine 1.3 01/12/17. Creatinine today = 2.1. Acute kidney injury, mechanism uncertain. Received IV contrast with CT chest. IV fluids. Hold HCTZ. Follow. COPD Change bronchodilator therapy to levalbuterol because of tachycardia. LEUKOCYTOSIS WBC 17,900. Afebrile. Has had a cough for last 2 weeks, but no infiltrates appreciated on chest x-ray (final report pending). Leukocytosis may be secondary to ACS. Follow. ALCOHOL CONSUMPTION Drinks 2 beers and 3 shots daily. Alcohol withdrawal protocol ordered. Continue gabapentin. Lorazepam PRN per withdrawal protocol. Thiamine daily. VTE PROPHYLAXIS Moderate risk. Receiving IV heparin; transition to prophylactic dosing with enoxaparin or heparin when appropriate. Ambulate as able. RESUSCITATION STATUS Discussed with patient. He has a living will. He would like resuscitation attempted in the event of a cardiopulmonary arrest if there is a reasonable chance of a meaningful recovery, but does not want prolonged extraordinary measures if prognosis is poor. Therefore, code status = "Level 1" (full resuscitation). DISPOSITION Admit to Telemetry Unit. Expected discharge to home. Family Medicine follow-up with Dr. Simmons. Cardiology follow-up with Pete Mott PA-C and Dr. Hoover. . . VTE Prophylaxis VTE Risk Assessment Done? Y/N: Yes Risk Level: Moderate Given or contraindicated: Other Anticoagulation (IV heparin)
--- NOTE | 2017-04-06 01:10 | EMERGENCY ROOM VISIT NOTE ---
History Report prepared by Colten: Pao Livingston Under the Supervision of: Dr. Evelyn Cornejo M.D. First contact with patient: 23:14 Chief Complaint: CARDIAC ASSESSMENT Stated Complaint: POSSIBLE HEART ATTACK, TOOK 2 NITROS NOT HELP BP History of Present Illness The patient is a 67 year old male who presents to the Emergency Room with complaints of intermittent chest pain and SOB starting 0600 this morning. He describes the pain as a tightness, 8/10. He tried taking 2 nitro today which did relieve some of his pain. He has pain from his throat into his chest and down his left arm. He is SOB. The SOB worsens with exertion. He denies any back pain. He has a history of CABG x2, hypertension, and COPD. He denies any history of blood clots, issues with his aorta, or kidney problems. He had a baby aspirin this morning. Source of History: patient Onset: 0600 this morning Position: chest Quality: other (tightness) Timing: intermittent Modifying Factors (Relieving): other (nitro) Associated Symptoms: + SOB, No back pain Note: Pt reports throat pain, left arm pain. Review of Systems See HPI for pertinent positives & negatives. A total of 10 systems reviewed and were otherwise negative. Past Medical & Surgical Medical Problems: (1) Asbestos pneumoconiosis (2) CAD (coronary artery disease) (3) Carotid stenosis, non-symptomatic (4) Chest pain (5) COPD (chronic obstructive pulmonary disease) (6) History of colonic polyps (7) Hyperlipidemia (8) Hypertension (9) Lumbar stenosis with neurogenic claudication Surgical Problems: (1) S/P CABG x 2 (2) S/P lumbar spinal fusion (3) Status post double vessel coronary artery bypass Family History FH: CAD (coronary artery disease) FATHER MOTHER Hypertension FATHER MOTHER Social History Smoking Status: Former Smoker Marital Status: Housing Status: lives with family Occupation Status: retired Current/Historical Medications Scheduled Amlodipine Besylate (Norvasc), 10 MG PO QAM Aspirin (Aspirin Ec), 81 MG PO DAILY Atorvastatin (Lipitor), 80 MG PO QPM Fluticasone Propionate (Nasal) (Flonase Allergy Relief), 2 SPRY KYLEE DAILY Folic Acid (Folvite), 1 MG PO DAILY Gabapentin (Neurontin), 300 MG PO TID Hctz/Losartan (Hyzaar 25MG/100MG), 1 TAB PO QAM Loratadine (Claritin), 10 MG PO DAILY Metoprolol Tartrate (Lopressor) (Lopressor), 50 MG PO BID Montelukast Sodium (Singulair), 10 MG PO DAILY Tiotropium [place] (Spiriva Handihaler), 1 CAP INH QAM Scheduled PRN Albuterol Hfa (Ventolin Hfa), 2 PUFFS INH Q4 PRN for SOB/Wheezing Nitroglycerin (Nitrostat), 0.4 MG UT UD PRN for Chest Pain Polyethylene Glycol-Propylene (Systane Ultra), 1-2 DROPS OP UD PRN for dry eyes Allergies Coded Allergies: No Known Allergies (Unverified , 04/05/17) Physical Exam Vital Signs Date Time Temp Pulse Resp B/P (MAP) Pulse Ox O2 Delivery O2 Flow Rate FiO2 04/06/17 00:52 110 25 97 Nasal Cannula 2.0 04/06/17 00:46 164/86 04/06/17 00:37 105 17 96 04/06/17 00:31 139/82 04/06/17 00:22 113 15 97 04/06/17 00:17 110 15 97 04/06/17 00:16 181/94 04/06/17 00:02 105 19 98 04/06/17 00:01 153/89 04/05/17 23:47 108 26 161/80 97 Nasal Cannula 2.0 04/05/17 23:40 180/93 04/05/17 23:31 115 04/05/17 23:25 169/83 04/05/17 23:17 36.5 113 16 174/83 95 Room Air Physical Exam Vital signs reviewed. General: Flushed male, in significant discomfort. HEENT: No scleral icterus, PERRLA, neck supple. Atraumatic. Cardiovascular: Tachycardic rate and regular rhythm, no extra sounds. Pulmonary: Clear to auscultation bilaterally with increased work of breathing. Tachypnea Abdomen: Soft, nontender, nondistended, positive bowel sounds. Musculoskeletal: Atraumatic, 1+ pitting edema to the bilateral lower extremities. Post sternotomy scar that is well healed. Neurologic: Patient awake alert and oriented x 3 Skin: Warm, dry, no rash. Medical Decision & Procedures ER Provider Diagnostic Interpretation: X-ray results as stated below per interpretation by me. Radiology results as stated below per my review and [facility] radiologist interpretation: Chest X-ray: Pulmonary vascular congestion with cardiomegaly. Post sternotomy surgical change. CTA Chest: No thoracic aortic aneurysm or dissection. No intramural hematoma. Bilateral calcified pleural plaques, likely secondary to asbestos related pleural disease. No consolidation. No pleural effusion or pneumothorax. Extensive calcified atherosclerosis of the coronary arteries. Heart size is normal. No pericardial effusion. Median sternotomy wires. Laboratory Results 04/05/17 23:13 Red Blood Count 4.39, Mean Corpuscular Volume 95.0, Mean Corpuscular Hemoglobin 33.3, Mean Corpuscular Hemoglobin Concent 35.0, Mean Platelet Volume 9.6, Neutrophils (%) (Auto) 79.0, Lymphocytes (%) (Auto) 11.1, Monocytes (%) (Auto) 9.3, Eosinophils (%) (Auto) 0.0, Basophils (%) (Auto) 0.1, Neutrophils # (Auto) 14.15, Lymphocytes # (Auto) 1.98, Monocytes # (Auto) 1.66, Eosinophils # (Auto) 0.00, Basophils # (Auto) 0.02 04/05/17 23:13 Test 04/05/17 23:13 04/05/17 23:27 04/05/17 23:28 White Blood Count 17.90 K/uL (4.8-10.8) Red Blood Count 4.39 M/uL (4.7-6.1) Hemoglobin 14.6 g/dL (14.0-18.0) Hematocrit 41.7 % (42-52) Mean Corpuscular Volume 95.0 fL (80-100) Mean Corpuscular Hemoglobin 33.3 pg (25-34) Mean Corpuscular Hemoglobin Concent 35.0 g/dl (32-36) Platelet Count 323 K/uL (130-400) Mean Platelet Volume 9.6 fL (7.4-10.4) Neutrophils (%) (Auto) 79.0 % Lymphocytes (%) (Auto) 11.1 % Monocytes (%) (Auto) 9.3 % Eosinophils (%) (Auto) 0.0 % Basophils (%) (Auto) 0.1 % Neutrophils # (Auto) 14.15 K/uL (1.4-6.5) Lymphocytes # (Auto) 1.98 K/uL (1.2-3.4) Monocytes # (Auto) 1.66 K/uL (0.11-0.59) Eosinophils # (Auto) 0.00 K/uL (0-0.5) Basophils # (Auto) 0.02 K/uL (0-0.2) RDW Standard Deviation 49.4 fL (36.4-46.3) RDW Coefficient of Variation 14.1 % (11.5-14.5) Immature Granulocyte % (Auto) 0.5 % Immature Granulocyte # (Auto) 0.09 K/uL (0.00-0.02) Prothrombin Time 9.8 SECONDS (9.0-12.0) Prothromb Time International Ratio 0.9 (0.9-1.1) Activated Partial Thromboplast Time 23.1 SECONDS (21.0-31.0) Partial Thromboplastin Ratio 0.9 Est Creatinine Clear Calc Drug Dose 35.8 ml/min Estimated GFR () 37.2 Estimated GFR (Non- 32.1 BUN/Creatinine Ratio 17.2 (10-20) Calcium Level 10.2 mg/dl (8.5-10.1) Magnesium Level 2.5 mg/dl (1.8-2.4) Total Bilirubin 0.2 mg/dl (0.2-1) Direct Bilirubin < 0.1 mg/dl (0-0.2) Aspartate Amino Transf (AST/SGOT) 19 U/L (15-37) Alanine Aminotransferase (ALT/SGPT) 31 U/L (12-78) Alkaline Phosphatase 85 U/L (45-117) Total Creatine Kinase 97 U/L (39-308) Creatine Kinase MB 2.9 ng/ml (0.5-3.6) Creatine Kinase MB Ratio 3.0 (0-3.0) Total Protein 8.5 gm/dl (6.4-8.2) Albumin 4.1 gm/dl (3.4-5.0) Bedside Hemoglobin 13.6 g/dl (14.0-18.0) Bedside Hematocrit 40 % (42-52) Bedside Sodium 140 mEq/L (135-144) Bedside Potassium 4.0 mEq/L (3.3-5.0) Bedside Chloride 104 mEq/L (101-112) Bedside Total CO2 22 mEq/l (24-31) Anion Gap 18.0 mmol/L (16-25) Bedside Blood Urea Nitrogen 35 mg/dl (7-18) Bedside Creatinine 2.3 mg/dl (0.6-1.3) Bedside Glucose (other) 138 mg/dl (70-99) Bedside Ionized Calcium (Latricia) 1.32 mmol/l (1.12-1.32) Bedside Troponin I 0.550 ng/ml (0-0.045) Laboratory results per my review. Medications Administered Medications (Trade) Dose Ordered Sig/Dipti Route Start Time Stop Time Status Last Admin Dose Admin Nitroglycerin (Nitroglycerin 2% Oint) 1 inch NOW ONCE EXT 04/05/17 23:30 04/05/17 23:31 DC 04/05/17 23:20 1 INCH Aspirin (Aspirin Chew) 324 mg NOW STAT PO 04/05/17 23:20 04/05/17 23:22 DC 04/05/17 23:20 324 MG Sodium Chloride 500 ml @ 999 mls/hr Q31M STAT IV 04/05/17 23:38 04/06/17 00:08 DC 04/05/17 23:42 999 MLS/HR Ondansetron HCl (Zofran Inj) 4 mg NOW STAT IV 04/05/17 23:48 04/05/17 23:49 DC 04/06/17 00:11 4 MG Heparin Sodium/ Dextrose (Heparin 25,000 Unit/500ml D5W) 25,000 unit STK-MED ONCE .ROUTE 04/05/17 23:56 04/05/17 23:57 DC 04/06/17 00:02 25,000 UNIT Heparin Sodium (Porcine) (Heparin Sq 5000 Unit/0.5ml) 5,000 unit STK-MED ONCE .ROUTE 04/05/17 23:57 04/05/17 23:58 DC 04/06/17 00:01 4,000 UNIT Ticagrelor (Brilinta Tab) 180 mg ONE STAT PO 04/06/17 00:47 04/06/17 00:48 DC 04/06/17 00:51 180 MG ECG Indication: chest pain Rate (beats per minute): 111 Rhythm: sinus tachycardia Findings: other (left atrial enlargement, ST and T wave change in inferior and anterolateral leads ) ED Course 2317: Past medical records reviewed. The patient was evaluated in room A10. A complete history and physical examination was performed. 2319: Repeat EKG at this time shows sinus tachycardia, rate 112, left atrial enlargement, left axis deviation, inferior and anterolateral ST and T wave changes. Slightly more pronounced ST depression in anterolateral leads compared to previous. 2320: Aspirin 324 mg PO. 2322: I discussed the patients case with Dr. Bird, [facility] cardiology. He is in agreement with the plan. 2330: Nitroglycerin 1 inch EXT. 2338: NSS 500 ml @ 999 mls/hr IV. 2345: I reevaluated the patient. His pain is now down to a 3. Repeat EKG at this time shows sinus tachycardia, rate [address] depression in the inferior leads and improved ST depression in the anterolateral leads. I discussed laboratory and radiographic results with him. He verbalized agreement of the treatment plan. The patient will be evaluated for further management and care. 2348: Heparin Sodium/Dextrose IV. 2353: I spoke with Dr. Bird again. He is in agreement with the plan. 0002: [facility] will evaluate the patient for further management. Medical Decision Differential diagnosis: Acute coronary syndrome, pulmonary embolus, aortic dissection, musculoskeletal pain, pneumonia, pleural effusion, pneumothorax This patient was evaluated and appeared to be in significant distress. IV access was obtained and laboratory work was drawn. The patient's EKG reveals sinus tachycardia with diffuse ST depression and T-wave change. The patient is tachypnea with an increased work of breathing. Lung sounds are clear. Chest x- ray reveals some pulmonary vascular congestion. The patient is noted to be hypertensive. Patient was given 1 inch of nitroglycerin paste to the anterior chest wall and 324 mg of aspirin by mouth. The concern for aortic dissection is realistic. The patient was sent to CT with half dose contrast as his creatinine is 2.3. As the patient did receive IV contrast, is given a 500 mL bolus of normal saline solution. I spoke with Dr. Bird of cardiology at the patient's initial presentation. EKG was repeated several times. After return from CAT scan, the EKG has largely normalize. Much of the ST depression has improved and T-wave inversions laterally are improved. Patient's pain resolved. I did speak with Dr. Bird once again and informed him of the improvements. He has recommended IV heparin infusion and nitroglycerin to maintain the patient's pain-free. As the patient did receive IV contrast, Dr. Bird would like to delay catheterization if at all possible until morning. There is no evidence of ST elevation at this time. The case [facility] He has agreed to evaluate the patient for admission and further management. Patient and are aware of the plan and agree. Medication Reconcilliation Current Medication List: was personally reviewed by me Blood Pressure Screening Patient's blood pressure: Elevated blood pressure Referred to hospitalist. Consults Time Called: 2319 Consulting Physician: Dr. Bird, [facility] cardiology Returned Call: [phone] I discussed the patient's case with him. He is in agreement with the plan. Additional Consults: Time Called: 2354 Consulted Physician: Dr. Luna, [facility] Returned Call: 1 Additional Comments: I reviewed the patient's case with him. He will evaluate the patient for further management. Impression Primary Impression: Acute coronary syndrome Critical Care I have personally spent greater than 60 minutes of critical care time in the direct management of this patient. This includes bedside care, interpretation of diagnostic studies, and testing, discussion with consultants, patient, and family members, and other required patient management activities. This 60 minutes is in excess of all separately billable procedures. Scribe Attestation The scribe's documentation has been prepared under my direction and personally reviewed by me in its entirety. I confirm that the note above accurately reflects all work, treatment, procedures, and medical decision making performed by me. Departure Information Dispostion Being Evaluated By Hospitalist Referrals Earl Simmons M.D. (PCP) Patient Instructions My [facility]
[2017-04-06] MEDS ORDERED: LEValbuterol HFA 15GM INHALER INH PRN (01:15)
--- NOTE | 2017-04-06 01:20 | NUR ---
Admit: Refer to admission nursing assessment for nursing history, admission vital signs, and assessment details; Report received from [employer] FRAME TRUER;67 y/o Pt. in NAD being admitted Chest pain; Pt. Received and Placed in room E231 via stretcher; Pt. walked to bed; Vital signs obtained; Pt. oriented to room, call gentile, and hospital environment, fall agreement & Code word established; Casting Trucker applied - Admit strip printed and verified Showing ST on monitor; Pt. denies any chest pain at, shortness of breath, or dizziness at this time. Pt. arrived to unit with Heparin infusing at 850 units/ hr (17 ml/ hr) -see eMAR/ order history; Patient agrees to ring for assistance; No discharge needs anticipated; Bed lowest position, Call gentile & items of necessity within reach, Will continue to monitor & assess.
[2017-04-06] MEDS ORDERED: LORAZEPAM 2 MG/ML 1 ML VIAL IV PRN (01:45)
[2017-04-06] MEDS ORDERED: LORAZEPAM 1 MG TAB PO PRN (01:45)
[2017-04-06] MEDS ORDERED: THIAMINE HCL INJ 100 MG in SYRINGE 9 ML IV SCH (02:00)
[2017-04-06] MEDS: D5W AND 1/2NSS + 20MEQ KCL 1,000 ML IV SCH ×2 (02:11→08:27)
[2017-04-06] MEDS ORDERED: METOPROLOL TARTRATE 1 MG/ML VIAL IV ONE (02:45)
--- NOTE | 2017-04-06 04:33 | NUR ---
A: Assessment completed and updated- see EMR for full detail; VSS- see EMR; AA&Ox 4; NSr-ST noted on monitor, denies CP/SOB; pt. denies pain at this time; Pt. currently resting comfortably in bed; no needs apparent or verbalized at this time; IV sites intact - heparin and IVF infusing see eMAR ; safety measures reviewed; call-gentile & items of necessity in reach;
[2017-04-06] MEDS: FAMOTIDINE IV INJ 20 MG in SYRINGE 3 ML IV SCH ×2 (05:53→19:18)
[2017-04-06] MEDS: NITROGLYCERIN OINT 2% 1GM PACKET EXT SCH ×3 (05:53→19:16)
[2017-04-06 06:18] LABS: BASO % 0.1 %; BASO ABS # 0.01 K/uL (0-0.2); HEMATOCRIT 36.8 % (42-52); HEMOGLOBIN 12.8 g/dL (14.0-18.0); IG# 0.06 K/uL (0.00-0.02); LYMPH % 12.3 %; LYMPH ABS # 1.59 K/uL (1.2-3.4); MEAN CELL VOLUME 95.6 fL (80-100); MEAN CORPUSCULAR HEMOGLOBIN 33.2 pg (25-34); MEAN CORPUSCULAR HGB CONC 34.8 g/dl (32-36); MEAN PLATELET VOLUME 9.3 fL (7.4-10.4); MONO % 11.6 %; NEUT % 75.5 %; NEUT ABS # 9.79 K/uL (1.4-6.5); PLATELET COUNT 246 K/uL (130-400); RED CELL DISTRIBUTION WIDTH CV 14.3 % (11.5-14.5); RED CELL DISTRIBUTION WIDTH SD 49.6 fL (36.4-46.3); WHITE BLOOD COUNT 12.95 K/uL (4.8-10.8)
[2017-04-06 06:27] LABS: PTT PATIENT 36.8 SECONDS (21.0-31.0)
[2017-04-06 06:45] LABS: CALCIUM 9.3 mg/dl (8.5-10.1); CREATININE 1.62 mg/dl (0.60-1.40); POTASSIUM 4.3 mmol/L (3.5-5.1)
[2017-04-06] MEDS ORDERED: HEPARIN IV BOLUS 6,000 UNIT in SYRINGE 0 ML IV ONE ×2 (07:00→15:00)
[2017-04-06 07:03] LABS: CKMB 3.2 ng/ml (0.5-3.6)
--- NOTE | 2017-04-06 07:10 | DIAGNOSTIC IMAGING REPORT ---
CHEST ONE VIEW PORTABLE CLINICAL HISTORY: Chest pain and shortness of breath. COMPARISON STUDY: Chest radiograph April 28, 2015. FINDINGS: There are median sternotomy wires. No pneumothorax or pleural effusion is noted. Calcified pleural plaques are noted. Lower lung predominant interstitial thickening is noted. There is no lobar consolidation. There is mild cardiomegaly. No evidence for overt pulmonary edema. IMPRESSION: 1. Increased bibasilar markings which likely reflect normal vessels or atelectasis. 2. Mild cardiomegaly without evidence for overt pulmonary edema. Electronically signed by: David Shields M.D. 04/06/2017 7:09 AM Dictated Date/Time: 04/06/2017 7:07 AM
[2017-04-06] MEDS: HEPARIN 25,000 UNIT/500ML D5W 500 ML IV PRN ×2 (07:15→15:39)
--- NOTE | 2017-04-06 07:34 | DIAGNOSTIC IMAGING REPORT ---
CHEST COMBO ANGIO DISSECTION CLINICAL HISTORY: Chest pain and chest tightness. COMPARISON STUDY: Chest radiograph performed earlier today and April 28, 2015. TECHNIQUE: Unenhanced and arterial phase imaging of the chest was performed. Injection of 64 cc of Optiray 320 IV was uneventful. Sagittal and coronal reconstructions were viewed as well as maximal intensity projections on an independent 3-D workstation. FINDINGS: There are median sternotomy wires and postsurgical findings consistent with bypass grafting. There is extensive coronary artery calcification. The heart is mildly enlarged. There is no pericardial effusion. There is no intramural hematoma within the thoracic aorta. There is no thoracic aortic dissection. There is moderate atherosclerotic plaque of the vascular aorta and great vessels. No enlarged thoracic lymph nodes are present. Central airways are patent. There are numerous calcified and noncalcified pleural plaques. Subpleural groundglass and linear opacities suggest scarring or atelectasis. There is no consolidation to suggest pneumonia. No abnormalities of the bony thorax are present. Fatty infiltration of the liver is noted. IMPRESSION: 1. No thoracic aortic dissection. 2. No acute intrathoracic findings. 3. Calcified and noncalcified pleural plaques which suggest asbestos related pleural disease. Electronically signed by: David Shields M.D. 04/06/2017 7:33 AM Dictated Date/Time: 04/06/2017 7:27 AM
--- NOTE | 2017-04-06 08:16 | NUR ---
A/ID: Laying in bed watching TV. Denies chest pain, palpitations and pain. c/o dyspnea with slight exertion. lungs diminished with exp wheezes scattered throughout. Harsh non-productive cough. O2 on at 2L. Dr. Cruz in rounding. Lives with his . Call gentile within reach.
[2017-04-06] MEDS: TIOTROPIUM BROMIDE 5 PUFF/90 MCG INH INH SCH (08:23)
[2017-04-06] MEDS: FLUTICASONE PROPIONATE NA SPR 16 GM BTL NAE SCH (08:24)
[2017-04-06] MEDS: ASPIRIN 81 MG ECTAB PO SCH (08:25)
[2017-04-06] MEDS: METOPROLOL TARTRATE 50 MG TAB PO SCH ×2 (08:25→20:44)
[2017-04-06] MEDS: LOSARTAN POTASSIUM 50 MG TAB PO SCH (08:26)
[2017-04-06] MEDS: AMLODIPINE BESYLATE 5 MG TAB PO SCH (08:26)
[2017-04-06] MEDS: GABAPENTIN 300 MG CAP PO SCH ×3 (08:26→20:44)
[2017-04-06] MEDS: THIAMINE HCL 100 MG TAB PO SCH (08:27)
[2017-04-06] MEDS: MONTELUKAST SOD 10 MG TAB PO SCH (08:27)
[2017-04-06] MEDS: LORATADINE 10 MG TAB PO SCH (08:27)
--- NOTE | 2017-04-06 08:42 | ECHOCARDIOGRAM REPORT ---
*NOTICE TO RECEIVING LIBERTARIAN AGENCY This information is strictly Confidential and protected under [place] law. [place] law prohibits you from making any further disclosure of this information unless further disclosure is expressly permitted by the written consent of the person to whom it pertains or is authorized by law. A general authorization for the release of medical or other information is not sufficient for this purpose. Hospital accepts no responsibility if the information is made available to any other person, INCLUDING THE PATIENT. Interpretation Summary * Name: GEORGE MOMIN Study Date: 04/06/2017 06:58 AM BP: 145/82 mmHg * Patient Location: C.2T\S\S231\S\1 HR: 87 * : 1950 (M/d/yyyy) Gender: Male Height: 67 in * Age: 67 yrs Ethnicity: CA Weight: 178 lb * Ordering Physician: Irvin Luna * Referring Physician: Ramirez Hoover D.O. * Performed By: Meme Bro RCS * * Reason For Study: AMI * BSA: 1.9 m2 * -- Conclusions -- * Small, underfilled LV chamber size with mild concentric LVH. * Mildly reduced LV systolic function, EF 45-50%. * Moderate hypokinesis of the inferior/inferoseptal carnes, otherwise, hypderdynamic wall motion. * Grade I diastolic dysfunction. * The right ventricular cavity size is normal (basal dimension <4.2 cm in right ventricular apical 4-chamber view). * The right ventricular systolic function is mildly reduced. * Aortic valve sclerosis mild, without significant aortic valvular stenosis. * Mild left atrial enlargement. Procedure Details * A complete two-dimensional transthoracic echocardiogram was performed (2D, M-mode, Doppler and color flow Doppler). Left Ventricle * The left ventricular cavity is small. * There is mild concentric left ventricular hypertrophy. * Ejection Fraction = 45-50%. * Left ventricular systolic function is mildly reduced. * Moderate hypokinesis of the inferior/inferoseptal carnes, otherwise, hypderdynamic wall motion. Right Ventricle * The right ventricular cavity size is normal (basal dimension <4.2 cm in right ventricular apical 4-chamber view). * The right ventricular systolic function is mildly reduced. Atria * The left atrium is mildly dilated. * Right atrial size is normal. * No ASD detected; PFO is not assessed. Mitral Valve * The mitral valve is normal in structure and function. Tricuspid Valve * The tricuspid valve is normal in structure and function. Aortic Valve * The aortic valve is trileaflet. * Aortic valve sclerosis mild, without significant aortic valvular stenosis. * There is no significant aortic regurgitation. Pulmonic Valve * The pulmonary valve is not well seen, but the Doppler examination is normal without significant regurgitation or stenosis. Great Vessels * The aortic root and proximal ascending aorta are normal sized. Pericardium/Pleural * There is no pericardial effusion. Left Ventricular Diastolic Function * Grade I diastolic dysfunction, (abnormal relaxation pattern). MMode 2D Measurements and Calculations IVSd 1.0 cm IVSs 1.4 cm LVIDd 3.6 cm LVIDs 2.3 cm LVPWd 1.0 cm LVPWs 1.3 cm IVS/LVPW 1.0 FS 36.3 % EDV(Teich) 55.6 ml ESV(Teich) 18.4 ml EF(Teich) 66.9 % EDV(cubed) 47.9 ml ESV(cubed) 12.4 ml EF(cubed) 74.2 % % IVS thick 38.5 % % LVPW thick 28.4 % LV mass(C)d 111.7 grams LV mass(C)dI 58.1 grams/m\S\2 LV mass(C)s 95.7 grams LV mass(C)sI 49.8 grams/m\S\2 SV(Teich) 37.2 ml SI(Teich) 19.3 ml/m\S\2 SV(cubed) 35.5 ml SI(cubed) 18.4 ml/m\S\2 Ao root diam 3.3 cm Ao root area 8.8 cm\S\2 ACS 2.0 cm LA dimension 3.9 cm asc Aorta Diam 2.7 cm LA/Ao 1.2 EDV(sp4-el) 69.0 ml ESV(sp4-el) 22.0 ml EF(sp4-el) 68.1 % EDV(sp2-el) 55.0 ml ESV(sp2-el) 22.0 ml EF(sp2-el) 60.0 % SV(sp4-el) 47.0 ml SI(sp4-el) 24.4 ml/m\S\2 SV(sp2-el) 33.0 ml SI(sp2-el) 17.1 ml/m\S\2 Doppler Measurements and Calculations MV E max janak 87.4 cm/sec MV A max janak 103.0 cm/sec MV E/A 0.85 MV P1/2t max janak 86.3 cm/sec MV P1/2t 87.7 msec MVA(P1/2t) 2.5 cm\S\2 MV dec slope 288.3 cm/sec\S\2 MV dec time 0.16 sec Ao V2 max 100.3 cm/sec Ao max PG 4.0 mmHg Ao max PG (full) 1.6 mmHg LV V1 max PG 2.4 mmHg LV V1 max 77.7 cm/sec PA V2 max 105.3 cm/sec PA max PG 4.4 mmHg PI max janak 182.5 cm/sec PI max PG 13.3 mmHg PI dec slope 312.4 cm/sec\S\2 PI P1/2t 171.1 msec TR max janak 231.2 cm/sec
[2017-04-06] MEDS ORDERED: DC ALL ANTICOAGULANTS ONE (08:45)
[2017-04-06] MEDS ORDERED: ASPIRIN 81 MG ECTAB PO SCH (09:00)
--- NOTE | 2017-04-06 09:05 | NUR ---
Heparin dc'd per order. Diet ordered.
--- NOTE | 2017-04-06 10:08 | CARDIOLOGY CONSULTATION ---
DATE OF CONSULTATION: 04/06/2017 REFERRING PHYSICIAN: Dr. Luna. REASON FOR CONSULTATION: Chest pain. HISTORY OF PRESENT ILLNESS: This is a 67-year-old male patient with a history of coronary artery disease and prior coronary artery bypass surgery in 2003. He is a former cigarette smoker and he stopped in 2011. He also has a history of tobacco associated COPD and asbestosis. The patient was in his usual state of health yesterday morning. He awoke and had some chest tightness and shortness of breath, which he thought may be due to COPD. Later in the day, he had additional chest pressure radiating to his throat while loading some firewood. He utilizes an inhaler and rest, which improved his symptoms. Last evening, he had more severe discomfort and took 2 sublingual nitroglycerins. He then presented to the Emergency Department. His initial EKG shows significant ST segment depressions in the inferior and lateral leads consistent with an acute coronary syndrome. His cardiac markers have increased with a troponin of 0.9. The patient did have CT of the chest to rule out a dissection. Interventional services were called and they felt that he was not a candidate for immediate cardiac catheterization. He is currently pain-free and has no complaints this morning. It should be noted that the patient did undergo a repeat cardiac catheterization in 2009 at which time his ARREDONDO to the LAD was patent with distal LAD disease and the saphenous vein graft to the right coronary artery was occluded. ALLERGIES: No known medical allergies. PAST MEDICAL HISTORY: As outlined above, the patient has COPD and asbestosis. He stopped smoking in 2011. He has had previous coronary artery bypass surgery in 2003, receiving a ARREDONDO to the LAD and a saphenous vein graft to the right coronary artery. He had a repeat cardiac catheterization in 2009, which showed his ARREDONDO to be patent, but the saphenous vein graft to the right coronary to be occluded. He has a history of non-symptomatic carotid stenosis. He has been treated for hypertension and dyslipidemia. On admission through the Emergency Department, he was noted to have a creatinine of 2, which has decreased to 1.5 today with some hydration. The patient denies any previous history of kidney disease. FAMILY HISTORY: Significant for coronary artery disease and hypertension. SOCIAL HISTORY: He stopped smoking in 2011. He consumes at least 2 beers and 3 shots daily. He is and lives with his family. REVIEW OF SYSTEMS: A 10-point review of systems is negative except for the history of chief complaint. PHYSICAL EXAMINATION: GENERAL: He is alert and oriented. VITAL SIGNS: Blood pressure is 140/80, pulse is regular at 90 beats per minute. He is in a sinus mechanism. HEENT: He is normocephalic. Pupils are equal and reactive to light. Extraocular muscles are intact bilaterally. NECK: The neck veins are flat. Thyroid is nonpalpable. RESPIRATORY: Breath sounds equal bilaterally and clear to auscultation. CARDIOVASCULAR: Heart has a regular rhythm. Normal S1, S2. No S3, S4. No cardiac rubs or murmurs. GASTROINTESTINAL: Abdomen is soft, nontender without organomegaly. EXTREMITIES: Free of edema, digit clubbing, or cyanosis. NEUROLOGIC: Grossly intact. SKIN: Warm to touch. LYMPH NODES: Negative to palpation. IMPRESSION: 1. Non-ST elevation myocardial infarction. 2. History of coronary artery bypass in 2003 with a repeat cardiac catheterization in 2009 showing the left internal mammary artery to left anterior descending to be patent, but the saphenous vein graft to the right coronary artery to be occluded. 3. New wall motion abnormalities on an echocardiogram performed this admission of the inferior wall. 4. Chronic obstructive pulmonary disease and asbestosis. 5. Chronic kidney disease. RECOMMENDATIONS: The patient is currently clinically stable and not having active chest pain. I think it is best that we have nephrology see him in regard to his renal function before we introduce more contrast dye. Once he is well hydrated and seen by nephrology, then we can cath him tomorrow provided he remains stable. I would continue anticoagulation with heparin. He has been started on dual antiplatelet therapy.
--- NOTE | 2017-04-06 10:54 | NEPHROLOGY CONSULTATION ---
DATE OF CONSULTATION: 04/06/2017 DATE OF CONSULTATION: 04/06/2017 ATTENDING OF RECORD: Dr. Luna. REASON FOR CONSULTATION: CKD. 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 The patient also has significant history of heart disease with bypass surgery in 2003. The patient quit smoking in 2011. The patient presented with this admission with chest pain and EKG changes. The patient did undergo a CT with contrast to check for a dissection. The patient's creatinine on admission was 2.1 and this morning is down to 1.62. The patient is tentatively scheduled for cardiac catheterization tomorrow and is currently on IV fluids to hydrate the patient and in preparation for cardiac catheterization. The patient is resting comfortably, currently chest pain free. Only complaint is sinus headaches. ROS: no fevers or chills, +chest pain which has improved, no rash, +headaches, no anorexia, no n/v, no sob, no blurry vision, no dysphagia. all other review of systems otherwise negative. 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 PAST SURGICAL HISTORY: The bypass as well as a spinal fusion of his back. FAMILY HISTORY: Significant for heart disease. SOCIAL HISTORY: Former smoker. Does drink 2 beers and several shots a day. CURRENT MEDICATIONS: 1. Lipitor 80 mg at night. 2. Brilinta 90 mg p.o. b.i.d. 3. Aspirin 81 mg a day. 4. Norvasc 10 mg a day. 5. Flonase 2 sprays daily. 6. Folic acid 1 mg daily. 7. Neurontin 300 mg p.o. t.i.d. 8. Lopressor 50 mg p.o. b.i.d. 9. Singulair 10 mg daily. 10. Cozaar 100 mg daily. 11. Thiamine 100 mg daily. 12. Pepcid 20 mg IV q. 12. 13. D5 half normal with 20 of K at 75 mL an hour. PHYSICAL EXAMINATION: VITAL SIGNS: Temperature 36.5, pulse 97, respiratory rate 18, blood pressure 147/79, satting 99% on 2 liters. GENERAL: Awake, alert, oriented x3. EYES: No scleral icterus. EARS, NOSE, THROAT: Moist mucous membranes. NECK: Supple. PULMONARY: Slight expiratory wheeze. CARDIAC: Regular rate and rhythm. ABDOMEN: Bowel sounds positive, soft, nontender. EXTREMITIES: No clubbing, cyanosis or edema. NEUROLOGICALLY: Nonfocal. DERMATOLOGY: No rash or ulcers noted. LABORATORY DATA: Sodium level 137, potassium 4.3, chloride is 106, bicarbonate is 27, BUN is 33, creatinine is 1.62, glucose 163, calcium 9.3, troponin 0.949. White count is 12, H&H 12 and 36, platelet count is 246. INR was 0.9. Chest x-ray showed increased bibasilar markings which likely show atelectasis as well as some mild cardiomegaly without edema. ASSESSMENT AND PLAN: Acute kidney injury. The patient's baseline creatinine is 1.3. The patient came in with a creatinine of 2.1 and has improved to 1.62. Hopefully, should continue to improve with hydration. The patient did receive contrast to rule out dissection on the and now tentatively planned for cardiac catheterization tomorrow. The benefits outweigh the risks; however, I did explain to the patient that there is a risk of contrast-induced nephrotoxicity and to try to prevent this from occurring we are hydrating the patient. The patient appears to be tolerating the fluids well and will continue the current rate. I would like to check a renal ultrasound during this hospital admission as well to be thorough would like to check vitamin D and PTH levels as well. The patient may benefit from followup with nephrology in the [place] area with either Dr. Nix or Dr. Osorio, my 2 partners who have clinic in the [facility]. Primary prevention for the patient's chronic kidney disease is blood pressure control and the patient's blood pressures are well controlled and we are trying to evaluate the patient's heart function and blood flow to the heart through appropriate imaging and cardiac catheterization. Hopefully, creatinine remains stable throughout this hospitalization. Appreciate consultation. OTF
--- NOTE | 2017-04-06 11:12 | NUR ---
Dr. Carrillo was in rounding. New orders noted. c/o headache from nitro. Tylenol will be given per new order. Lungs diminished with expiratory wheezes. Denies all s/s. call gentile within reach.
[2017-04-06] MEDS: TICAGRELOR 90 MG TAB PO SCH (11:15)
[2017-04-06 13:04] LABS: CKMB 2.7 ng/ml (0.5-3.6)
--- NOTE | 2017-04-06 13:17 | NUR ---
Patient left for renal ultra sound.
--- NOTE | 2017-04-06 13:47 | DIAGNOSTIC IMAGING REPORT ---
(RENAL)RETROPERITON COMP HISTORY: 67 years-old Male check size of kidneys and screen for medical renal disease concern for possible medical renal disease. COMPARISON: CTA of the chest of same day TECHNIQUE: Multiple real-time sonographic images of the kidneys and urinary bladder were obtained assessing grayscale appearance and color flow FINDINGS: Right kidney measures 9.0 x 5.7 x 6.0 cm without renal calculi or hydronephrosis. Mild cortical thinning of the right kidney measuring up to 1.4 cm. Cortical medullary differentiation is preserved. Left kidney measures 9.0 x 6.3 x 5.6 cm without renal calculi or hydronephrosis. Mild cortical thinning is noted predominantly within the lower pole. Cortex measures up to 2.1 cm. Cortical medullary differentiation preserved. Bilateral ureteral jets noted. Urinary bladder is unremarkable. Mildly increased echogenicity of the liver suspicious for fatty infiltration. IMPRESSION: 1. No renal calculi or hydronephrosis. 2. Mild bilateral renal cortical thinning, right greater than left. 3. Suggested fatty infiltration of the liver. The above report was generated using voice recognition software. It may contain grammatical, syntax or spelling errors. Electronically signed by: Reese Desai M.D. 04/06/2017 1:46 PM Dictated Date/Time: 04/06/2017 1:42 PM
[2017-04-06 14:24] LABS: PTT PATIENT 22.9 SECONDS (21.0-31.0)
--- NOTE | 2017-04-06 15:27 | Progress Note ---
Medicine Progress Note Date & Time of Visit: Apr 06, 2017 at 14:49. Subjective Pt was seen and examined Lying in bed with no distress Pt said that he feels much better He said that he does not have any chest pain currently Denies any palpitation, dizziness and SOB Objective Last 8 Hrs Date Time Temp Pulse Resp B/P (MAP) Pulse Ox O2 Delivery O2 Flow Rate FiO2 04/06/17 12:00 Nasal Cannula 2.0 04/06/17 11:43 36.6 86 16 149/75 (99) 98 Nasal Cannula 2.0 04/06/17 11:11 36.6 20 146/74 (98) 98 Nasal Cannula 2.0 04/06/17 08:00 99 Nasal Cannula 2.0 04/06/17 07:16 36.5 97 18 147/79 (101) 99 Nasal Cannula 2.0 Physical Exam: General- No acute distress Head- atraumatic Eyes- PERRL, EOMI ENT- oropharynx clear Neck- supple, no JVD Lungs- No crackles Heart- regular rhythm, +murmur Abdomen- normal bowel sounds, nontender Extremities-no calf tenderness Neuro- alert, oriented x 3; PERRL, EOMI Skin- warm & dry Laboratory Results: Last 24 Hours Test 04/05/17 23:13 04/05/17 23:27 04/05/17 23:28 04/06/17 00:00 White Blood Count 17.90 K/uL Red Blood Count 4.39 M/uL Hemoglobin 14.6 g/dL Hematocrit 41.7 % Mean Corpuscular Volume 95.0 fL Mean Corpuscular Hemoglobin 33.3 pg Mean Corpuscular Hemoglobin Concent 35.0 g/dl Platelet Count 323 K/uL Mean Platelet Volume 9.6 fL Neutrophils (%) (Auto) 79.0 % Lymphocytes (%) (Auto) 11.1 % Monocytes (%) (Auto) 9.3 % Eosinophils (%) (Auto) 0.0 % Basophils (%) (Auto) 0.1 % Neutrophils # (Auto) 14.15 K/uL Lymphocytes # (Auto) 1.98 K/uL Monocytes # (Auto) 1.66 K/uL Eosinophils # (Auto) 0.00 K/uL Basophils # (Auto) 0.02 K/uL RDW Standard Deviation 49.4 fL RDW Coefficient of Variation 14.1 % Immature Granulocyte % (Auto) 0.5 % Immature Granulocyte # (Auto) 0.09 K/uL Prothrombin Time 9.8 SECONDS Prothromb Time International Ratio 0.9 Activated Partial Thromboplast Time 23.1 SECONDS Partial Thromboplastin Ratio 0.9 Sodium Level 137 mmol/L Potassium Level 4.0 mmol/L Chloride Level 104 mmol/L Carbon Dioxide Level 22 mmol/L Anion Gap 11.0 mmol/L 18.0 mmol/L Blood Urea Nitrogen 36 mg/dl Creatinine 2.10 mg/dl Est Creatinine Clear Calc Drug Dose 35.8 ml/min Estimated GFR () 37.2 Estimated GFR (Non- 32.1 BUN/Creatinine Ratio 17.2 Random Glucose 133 mg/dl Calcium Level 10.2 mg/dl Magnesium Level 2.5 mg/dl Total Bilirubin 0.2 mg/dl Direct Bilirubin < 0.1 mg/dl Aspartate Amino Transf (AST/SGOT) 19 U/L Alanine Aminotransferase (ALT/SGPT) 31 U/L Alkaline Phosphatase 85 U/L Total Creatine Kinase 97 U/L Creatine Kinase MB 2.9 ng/ml Creatine Kinase MB Ratio 3.0 Total Protein 8.5 gm/dl Albumin 4.1 gm/dl Bedside Hemoglobin 13.6 g/dl Bedside Hematocrit 40 % Bedside Sodium 140 mEq/L Bedside Potassium 4.0 mEq/L Bedside Chloride 104 mEq/L Bedside Total CO2 22 mEq/l Bedside Blood Urea Nitrogen 35 mg/dl Bedside Creatinine 2.3 mg/dl Bedside Glucose (other) 138 mg/dl Bedside Ionized Calcium (Latricia) 1.32 mmol/l Bedside Troponin I 0.550 ng/ml Urine Color YELLOW Urine Appearance CLEAR Urine pH 5.5 Urine Specific [place] 1.026 Urine Protein NEG Urine Glucose (UA) NEG Urine Ketones NEG Urine Occult Blood NEG Urine Nitrite NEG Urine Bilirubin NEG Urine Urobilinogen NEG Urine Leukocyte Esterase NEG Urine WBC (Auto) 1-5 /hpf Urine RBC (Auto) 0-4 /hpf Urine Hyaline Casts (Auto) 0 /lpf Urine Epithelial Cells (Auto) 0-5 /lpf Urine Bacteria (Auto) NEG Urine Random Creatinine 100.0 mg/dl Urine Random Microalbumin 22.1 mg/L Urine Microalbumin/Creatinine Ratio 22.1 mcg/mg Test 04/06/17 06:08 04/06/17 11:53 04/06/17 13:55 White Blood Count 12.95 K/uL Red Blood Count 3.85 M/uL Hemoglobin 12.8 g/dL Hematocrit 36.8 % Mean Corpuscular Volume 95.6 fL Mean Corpuscular Hemoglobin 33.2 pg Mean Corpuscular Hemoglobin Concent 34.8 g/dl Platelet Count 246 K/uL Mean Platelet Volume 9.3 fL Neutrophils (%) (Auto) 75.5 % Lymphocytes (%) (Auto) 12.3 % Monocytes (%) (Auto) 11.6 % Eosinophils (%) (Auto) 0.0 % Basophils (%) (Auto) 0.1 % Neutrophils # (Auto) 9.79 K/uL Lymphocytes # (Auto) 1.59 K/uL Monocytes # (Auto) 1.50 K/uL Eosinophils # (Auto) 0.00 K/uL Basophils # (Auto) 0.01 K/uL RDW Standard Deviation 49.6 fL RDW Coefficient of Variation 14.3 % Immature Granulocyte % (Auto) 0.5 % Immature Granulocyte # (Auto) 0.06 K/uL Activated Partial Thromboplast Time 36.8 SECONDS 22.9 SECONDS Partial Thromboplastin Ratio 1.4 0.9 Sodium Level 137 mmol/L Potassium Level 4.3 mmol/L Chloride Level 106 mmol/L Carbon Dioxide Level 27 mmol/L Anion Gap 4.0 mmol/L Blood Urea Nitrogen 33 mg/dl Creatinine 1.62 mg/dl Est Creatinine Clear Calc Drug Dose 45.0 ml/min Estimated GFR () 50.9 Estimated GFR (Non- 43.9 BUN/Creatinine Ratio 20.4 Random Glucose 163 mg/dl Calcium Level 9.3 mg/dl Total Creatine Kinase 75 U/L 71 U/L Creatine Kinase MB 3.2 ng/ml 2.7 ng/ml Creatine Kinase MB Ratio 4.3 3.8 Troponin I 0.949 ng/ml 1.000 ng/ml Triglycerides Level 151 mg/dl Cholesterol Level 139 mg/dl HDL Cholesterol 55 mg/dl LDL Cholesterol, Calculated 54 mg/dl VLDL Cholesterol, Calculated 30 mg/dl Cholesterol/HDL Ratio 2.5 Assessment & Plan CHEST PAIN NON-ST ELEVATION MYOCARDIAL INFARCTION s/p 2-vessel CABG 2003 with ARREDONDO to LAD and SVG to right PDA. cath in 2009 demonstrated patent ARREDONDO to LAD and occluded SVG to right PDA. Proximal LAD was occluded. 70% stenosis of LAD distal to ARREDONDO graft insertion was noted. Elevated troponin 0.55--> 0.9--> 1 EKG changes on admission Continue heparin drip, Aspirin, nitrate, Plavix, statin and metoprolol Cardiology on board Plan to have cardiac cath tomorrow if kidney function improved Will keep NPO Continue monitor in tele ECHO Showed * Small, underfilled LV chamber size with mild concentric LVH. * Mildly reduced LV systolic function, EF 45-50%. * Moderate hypokinesis of the inferior/inferoseptal carnes, otherwise, hypderdynamic wall motion. * Grade I diastolic dysfunction. * The right ventricular cavity size is normal (basal dimension <4.2 cm in right ventricular apical 4-chamber view). * The right ventricular systolic function is mildly reduced. * Aortic valve sclerosis mild, without significant aortic valvular stenosis. * Mild left atrial enlargement. RON ON CKD STAGE 3 Creatine on admission 2.1, baseline 1.3 Creatine improve to 1.6 today Received IV contrast yesterday for CTA chest Plan to have cardiac cath, will need to try to prevent contrast-induced nephrotoxicity Nephrology consulted Continue IV hydration Renal U/S showed no renal calculi or hydronephrosis. Mild bilateral renal cortical thinning, right greater than left. Continue monitor BMP HYPERTENSION Continue holding HCTZ due to elevated creatinine. Continue metoprolol, amlodipine, losartan. Continue monitor BMP. COPD Change bronchodilator therapy to levalbuterol because of tachycardia. LEUKOCYTOSIS possible reactive WBC elevated on admission 17K. CTA chest showed no acute intrathoracic findings Afebrile, No sign of infection. WBC trending down Monitor CBC ALCOHOL CONSUMPTION No sign of alcohol withdraw Alcohol withdrawal protocol ordered. Continue gabapentin. Lorazepam PRN per withdrawal protocol. Thiamine daily. DVT PROPHYLAXIS ON heparin drip CODE STATUS FULL CODE Consultants: Cardio nephro Current Inpatient Medications: Current Inpatient Medications Medications (Trade) Dose Ordered Sig/Dipti Route Start Time Stop Time Status Last Admin Dose Admin Ioversol (Optiray 320) 100 ml UD PRN IV 04/05/17 23:30 04/09/17 23:29 Nitroglycerin (Nitrostat Tab) 0.4 mg UD PRN SL 04/06/17 00:30 05/06/17 00:29 Nitroglycerin (Nitroglycerin 2% Oint) 1 inch Q6H EXT 04/06/17 06:00 05/06/17 05:59 04/06/17 11:15 1 INCH Aspirin (Ecotrin Tab) 81 mg QAM PO 04/06/17 09:00 05/06/17 08:59 04/06/17 08:25 81 MG Amlodipine Besylate (Norvasc Tab) 10 mg QAM PO 04/06/17 09:00 05/06/17 08:59 04/06/17 08:26 10 MG Atorvastatin Calcium (Lipitor Tab) 80 mg QPM PO 04/06/17 21:00 05/06/17 20:59 Fluticasone Propionate (Flonase Nasal Sims) 2 sprays DAILY KYLEE 04/06/17 09:00 05/06/17 08:59 04/06/17 08:24 2 SPRAYS Folic Acid (Folvite Tab) 1 mg DAILY PO 04/06/17 09:00 05/06/17 08:59 04/06/17 08:25 1 MG Gabapentin (Neurontin Cap) 300 mg TID PO 04/06/17 09:00 05/06/17 08:59 04/06/17 11:15 300 MG Loratadine (Claritin Tab) 10 mg DAILY PO 04/06/17 09:00 05/06/17 08:59 04/06/17 08:27 10 MG Metoprolol Tartrate (Lopressor Tab) 50 mg BID PO 04/06/17 09:00 05/06/17 08:59 04/06/17 08:25 50 MG Montelukast Sodium (Singulair Tab) 10 mg DAILY PO 04/06/17 09:00 05/06/17 08:59 04/06/17 08:27 10 MG Tiotropium [place] (Spiriva Handihaler Inhaler) 1 puff QAM INH 04/06/17 09:00 05/06/17 08:59 04/06/17 08:23 1 PUFF Ticagrelor (Brilinta Tab) 90 mg BID@0100,1300 PO 04/06/17 13:00 05/06/17 12:59 04/06/17 11:15 90 MG Levalbuterol (Xopenex Hfa Inhaler) 2 puffs Q6H PRN INH 04/06/17 01:15 05/06/17 01:14 Losartan Potassium (coZAAR TAB) 100 mg QAM PO 04/06/17 09:00 05/06/17 08:59 04/06/17 08:26 100 MG Potassium Chloride/Dextrose/ Sod Cl 1,000 ml @ 75 mls/hr [id number] IV 04/06/17 02:00 05/06/17 01:59 04/06/17 08:27 125 MLS/HR Heparin Sodium/ Dextrose 500 ml @ 23 mls/hr [id number] PRN IV 04/06/17 01:45 05/06/17 01:44 04/06/17 07:15 23 MLS/HR Famotidine 20 mg/ Syringe 5 ml @ 2.5 mls/min Q12H IV 04/06/17 06:00 05/06/17 05:59 04/06/17 05:53 2.5 MLS/MIN Thiamine HCl (Vitamin B-1 Tab) 100 mg DAILY PO 04/06/17 09:00 05/06/17 08:59 04/06/17 08:27 100 MG Lorazepam (Ativan Tab) 1 mg ONE PRN PO 04/06/17 01:45 Lorazepam (Ativan Inj) 1 mg ONE PRN IV 04/06/17 01:45 Miscellaneous (Dc All Anticoagulants) 1 ea 0700 N/A 04/07/17 07:00 04/07/17 15:00 Miscellaneous Information (Nursing Heparin Iv Rate Change) 1 ea ONE ONCE N/A 04/06/17 14:30 04/06/17 14:31 UNV
--- NOTE | 2017-04-06 16:00 | NUR ---
A: Patient resting in bed. Denies any pain or SOB. NSR on the monitor. Independent in the room. Family members are at the bedside. Call gentile is in reach.
--- NOTE | 2017-04-06 20:00 | NUR ---
A: Patient resting in bed. Denies any pain or SOB. NSR on the monitor. Independent in the room. Call gentile is in reach.
[2017-04-06] MEDS: ATORVASTATIN 40 MG TAB PO SCH (20:43)
[2017-04-06 22:55] LABS: PTT PATIENT 123.5 SECONDS (21.0-31.0)
[2017-04-06] MEDS ORDERED: ACETAMINOPHEN 325 MG TAB PO PRN (23:45)
--- NOTE | 2017-04-06 23:49 | NUR ---
A: Assessment completed- see EMR for full detail; VSS, - see EMR; AA&Ox4, Appropriate; NSR, noted on monitor; Denies CP/SOB, On 2 lPM NC; pt. denies pain at this time; Pt. currently resting in bed; no needs apparent or verbalized at this time; IV site intact - IVF infusing per order, heparin gtt on hold for 60 min and to be restarted at 25 ml/ hr - see eMAR; labs reviewed; safety reviewed; call-gentile & items of necessity in reach, encouraged to ring for assistance; will continue to monitor & assess.
[2017-04-07] VITALS (18 sets, daily range): BP systolic 125–160; BP diastolic 69–91; PULSE 74–97; TEMP 36.3–36.5; O2SAT 94–98
[2017-04-07] MEDS: HEPARIN 25,000 UNIT/500ML D5W 500 ML IV PRN (00:25)
[2017-04-07] MEDS: D5W AND 1/2NSS + 20MEQ KCL 1,000 ML IV SCH ×2 (00:36→15:29)
[2017-04-07] MEDS: NITROGLYCERIN OINT 2% 1GM PACKET EXT SCH ×3 (00:36→12:00)
[2017-04-07] MEDS: TICAGRELOR 90 MG TAB PO SCH ×2 (01:19→13:00)
--- NOTE | 2017-04-07 04:04 | NUR ---
A: Assessment completed- see EMR for full detail; VSS,-see EMR; AA&Ox4, Appropriate; NSR, noted on monitor; Denies CP/SOB, On 2 lPM NC; Pt. currently resting in bed; IV site intact - IVF infusing per order, heparin gtt infusing per protocol see eMAr - see eMAR; safety reviewed; call-gentile & items of necessity in reach, encouraged to ring for assistance; will continue to monitor & assess.
[2017-04-07 05:04] LABS: HEMATOCRIT 35.8 % (42-52); HEMOGLOBIN 12.3 g/dL (14.0-18.0); MEAN CELL VOLUME 96.2 fL (80-100); MEAN CORPUSCULAR HEMOGLOBIN 33.1 pg (25-34); MEAN CORPUSCULAR HGB CONC 34.4 g/dl (32-36); MEAN PLATELET VOLUME 9.5 fL (7.4-10.4); PLATELET COUNT 246 K/uL (130-400); RED CELL DISTRIBUTION WIDTH CV 14.2 % (11.5-14.5); RED CELL DISTRIBUTION WIDTH SD 50.2 fL (36.4-46.3); WHITE BLOOD COUNT 12.66 K/uL (4.8-10.8)
[2017-04-07 05:20] LABS: CALCIUM 8.1 mg/dl (8.5-10.1); CREATININE 1.4 mg/dl (0.60-1.40)
[2017-04-07] MEDS: FAMOTIDINE IV INJ 20 MG in SYRINGE 3 ML IV SCH (06:11)
[2017-04-07] MEDS ORDERED: DC ALL ANTICOAGULANTS SCH (07:00)
[2017-04-07] MEDS: GABAPENTIN 300 MG CAP PO SCH ×3 (07:51→21:06)
[2017-04-07] MEDS: METOPROLOL TARTRATE 50 MG TAB PO SCH ×2 (07:51→21:07)
[2017-04-07] MEDS: AMLODIPINE BESYLATE 5 MG TAB PO SCH (07:51)
[2017-04-07] MEDS: ASPIRIN 81 MG ECTAB PO SCH (07:51)
[2017-04-07] MEDS: LORATADINE 10 MG TAB PO SCH (07:52)
[2017-04-07] MEDS: MONTELUKAST SOD 10 MG TAB PO SCH (07:52)
[2017-04-07] MEDS: LOSARTAN POTASSIUM 50 MG TAB PO SCH (07:52)
[2017-04-07] MEDS: THIAMINE HCL 100 MG TAB PO SCH (07:53)
[2017-04-07] MEDS: FLUTICASONE PROPIONATE NA SPR 16 GM BTL NAE SCH (07:53)
[2017-04-07] MEDS: TIOTROPIUM BROMIDE 5 PUFF/90 MCG INH INH SCH (07:54)
--- NOTE | 2017-04-07 08:00 | NUR ---
A: Assessment completed. Refer to EMR for assessment details. NSR on tele. Patient denies any cp or sob at this time. Heparin gtt infusing. Sitting up at bedside chair. Indep with all hygiene care. NPO for cardiac cath around 11am. Denies any needs or complaints at this time. Call gentile within reach. Will continue to monitor.
--- NOTE | 2017-04-07 12:00 | NUR ---
Reassessment completed. Refer to EMR for assessment details. NSR on tele. Patient denies any cp or sob at this time. Heparin gtt infusing. Awaiting cardiac cath and remains npo. Denies any needs or complaints at this time. Call gentile within reach. Will continue to monitor.
--- NOTE | 2017-04-07 12:02 | NUR ---
Taken to collaborative physician in bed by collaborative physician RNs
[2017-04-07] MEDS ORDERED: MIDAZOLAM HCL 1 MG/ML 2ML VIAL ONE ×2 (12:06→13:37)
[2017-04-07] MEDS ORDERED: HEPARIN SOD (PORCINE) 1000 UNIT/ML 10 ML VIAL ONE ×2 (12:39→13:26)
[2017-04-07] MEDS ORDERED: NiCARDipine HCL INJ 2.5 MG/ML 10 ML AMP ONE (12:39)
[2017-04-07] MEDS ORDERED: FENTANYL CITRATE INJ 50 MCG/1 ML 2 ML VIAL ONE ×3 (12:39→14:18)
[2017-04-07] MEDS ORDERED: NITROGLYCERIN/D5W 100MCG/ML 20ML SYR ONE (12:39)
--- NOTE | 2017-04-07 12:46 | Cardiac Catheterization ---
Procedure Note Procedure Date Apr 07, 2017. Pre-Procedure Diagnosis Non STEMI AUC Score 9 Post-Procedure Diagnosis Severe CAD Procedure(s) Performed Coronary Angiography, Left Heart Cath, LV Angiography Manager Statistics Dr. Cruz Plant Taxonomy Teacher(s) None Estimated Blood Loss None Medication(s) Versed, Lidocaine 1% Summary of Findings ARREDONDO to LAD patent. LAD occluded at origin. Circ is patent. RCA mid 95%. SVG to RCA previously occluded. Hemodynamics Rest Ao: 125/67 Final Ao: 115/50 LV: 135/21 Recommendations PCI without planned CABG Specimens None Radiation Exposure (mGy) 1636 Contrast (mls) 141 Procedural Complication(s) None Disposition PCU ACC Data Cardiac Status Clinical evaluation leading to the procedure CAD Presntation: Non STEMI Anginal Classification: CCS III Heart Failure: No Cardiogenic Shock w/in 24Hrs: No Cardiac Arrest w/in 24Hrs: No Imaging studies past 6 months: Yes Stress studies past 6 months: No Coronary Anatomy Dominant: Right Left Main (% Stenosis): Ostial (100) Circumflex (% Stenosis): Normal RCA (% Stenosis): Mid (95) Grafts - LAD (%): Normal Grafts - RCA (%): Ostial (100) Left Ventricular Angiography EF (%): 60 Mitral Regurgitation: None Diagnostic Status: Urgent Closure Device Percutaneous Entry Location: Femoral
--- NOTE | 2017-04-07 12:47 | Pre Sedation Assessment ---
Pre Sedation Assessment General Date of Sedation: Apr 07, 2017. 12:10PM Vital Signs Past 12 Hours Date Time Temp Pulse Resp B/P (MAP) Pulse Ox O2 Delivery O2 Flow Rate FiO2 04/07/17 12:00 Nasal Cannula 2.0 04/07/17 08:00 Nasal Cannula 2.0 04/07/17 07:53 36.3 79 19 160/82 (108) 97 Nasal Cannula 2.0 04/07/17 04:02 36.4 83 20 125/69 (87) 96 Nasal Cannula 2.0 04/07/17 04:00 97 Nasal Cannula 2.0 Review Cardiovascular: regular rate, rhythm Lungs: lungs clear Pre-Sedation Airway Assessment Smoking Status: Former Smoker Hx of Sleep Apnea: No Hx of difficult intubation: No Short Thick Neck: No Thyro-mental Distance: > 3 Finger Breadths Oral Cavity: WNL Mallampati Classification: Class I ASA Classification: Class I Procedure Planning Contraindications for Sedation: None Current Medications Reviewed: Yes Notes The planned sedation has been discussed with the patient. Informed Consent was obtained. I have identified the patient, determined the appropriateness of sedation and have assessed the patient immediately prior to the procedure. All medicine(s) and interventions are by my order.
--- NOTE | 2017-04-07 12:48 | Post Sedation Assessment ---
Post Sedation Assessment General Date of Sedation Apr 07, 2017.12:34PM Vital Signs: Vital Signs Past 12 Hours Date Time Temp Pulse Resp B/P (MAP) Pulse Ox O2 Delivery O2 Flow Rate FiO2 04/07/17 12:00 Nasal Cannula 2.0 04/07/17 08:00 Nasal Cannula 2.0 04/07/17 07:53 36.3 79 19 160/82 (108) 97 Nasal Cannula 2.0 04/07/17 04:02 36.4 83 20 125/69 (87) 96 Nasal Cannula 2.0 04/07/17 04:00 97 Nasal Cannula 2.0 Post Procedure Recovery Score Activity: (2) Moves 4 extremities * Respiration: (2) Deep breath/cough Circulation: (2) +/-20% PreAnes Value Consciousness: (2) Fully Awake Oxygen Saturation: (2) > 92% On Room Air Discharge Sedation Level of Care: Phase I Post Sedation Plan On clinical assessment, the patient appears to have tolerated the sedation without complications. Patient is recovering as anticipated. Patient will continue to be monitored by nursing and may be discharged when sedation discharge criteria are met per below protocol. Upon Completions of procedure and additional 15 minutes continue every 5 minute vital signs and the P.A.R. score; then discharge to a Phase I or Fast Track to Phase II per the following guidelines: * Discharge Patient to appropriate Phase II area if PAR is 8 or greater or return to pre- procedure baseline. The post - procedure orders will be as directed. * If PAR score is less than 8 or not return to pre-procedure baseline then patient will follow Phase I monitoring till PAR is reached for Phase II. The Phase I may be done in procedure room or may call to secure a Phase I area. * If naloxone or flumazenil are used for reversal, hold in Phase I for an additional 60 -120 minutes before discharge to Phase II. Please call the Sedation Physician to re-evaluate and complete post-note for discharge to Phase II area. Do NOT discharge from procedure sedation or Phase 1 until post- sedation evaluation note is complete by procedure /sedation MD Sedation Discharge Instructions to be given to the patient at discharge to home.
[2017-04-07] MEDS ORDERED: ATROPINE SULFATE 0.1 MG/ML 5ML SYR IV PRN (15:00)
[2017-04-07] MEDS ORDERED: SODIUM CHLORIDE 0.9% 1000ML 1,000 ML IV SCH (15:00)
[2017-04-07] MEDS ORDERED: ACETAMINOPHEN 325 MG TAB PO PRN (15:00)
[2017-04-07] MEDS ORDERED: ONDANSETRON INJ 2 MG/ML 2 ML VIAL IV PRN (15:00)
[2017-04-07] MEDS ORDERED: NITROGLYCERIN 0.4 MG SL PER TAB CHARGE SL PRN (15:00)
--- NOTE | 2017-04-07 15:00 | NUR ---
A: Patient returned from construction craft laborer in stable condition. Small amount of oozing present at right groin site. laborer cutting tool staff held pressure and replaced the dressing. VS stable. No numbness or tingling. is at the bedside. Call gentile is in reach.
[2017-04-07] MEDS ORDERED: NURSING VERBAL MED ORDER ONE (15:30)
--- NOTE | 2017-04-07 16:35 | ECHOCARDIOGRAM REPORT ---
*NOTICE TO RECEIVING [employer] This information is strictly Confidential and protected under [place] law. [place] law prohibits you from making any further disclosure of this information unless further disclosure is expressly permitted by the written consent of the person to whom it pertains or is authorized by law. A general authorization for the release of medical or other information is not sufficient for this purpose. Hospital accepts no responsibility if the information is made available to any other person, INCLUDING THE PATIENT. Interpretation Summary * Name: GEORGE MOMIN Study Date: 04/07/2017 03:47 PM BP: 149/88 mmHg * Patient Location: C.2T\S\S231\S\1 HR: 83 * : 1950 (M/d/yyyy) Gender: Male Height: 65 in * Age: 67 yrs Ethnicity: [place] Weight: 186 lb * Ordering Physician: Eric Bird * Referring Physician: Ramirez Hoover D.O. * Performed By: Yvonne Stockton RCS * * Reason For Study: POST PCI / R/O PERICARDIAL EFFUSION * BSA: 1.9 m2 * -- Conclusions -- * No pericardial effusion. Procedure Details * Limited views were obtained. MMode 2D Measurements and Calculations IVSd 1.7 cm IVSs 2.0 cm LVIDd 3.7 cm LVIDs 3.1 cm LVPWd 1.1 cm LVPWs 1.5 cm IVS/LVPW 1.6 FS 17.4 % EDV(Teich) 59.9 ml ESV(Teich) 37.8 ml EF(Teich) 36.9 % EDV(cubed) 52.6 ml ESV(cubed) 29.7 ml EF(cubed) 43.6 % % IVS thick 14.1 % % LVPW thick 43.7 % LV mass(C)d 191.9 grams LV mass(C)dI 100.1 grams/m\S\2 LV mass(C)s 217.8 grams LV mass(C)sI 113.5 grams/m\S\2 SV(Teich) 22.1 ml SI(Teich) 11.5 ml/m\S\2 SV(cubed) 22.9 ml SI(cubed) 12.0 ml/m\S\2 LVOT diam 2.0 cm LVOT area 3.0 cm\S\2
--- NOTE | 2017-04-07 17:30 | NUR ---
Dr. Bird at the bedside. Notified him that patient's right groin cath site continues to ooze a small amount of blood. Pressure has been held and a new dressing applied. Will continue to monitor.
--- NOTE | 2017-04-07 18:26 | Progress Note ---
Medicine Progress Note Date & Time of Visit: Apr 07, 2017 at 10:14. Subjective Pt was seen and examined Sitting on the chair with no distress P had an epistaxis episode after trying blowing his He said that his nostrils feel dry from the supplement oxygen He has been applied pressure to his nose Denies any chest pain, palpitation, dizziness and SOB Objective Last 8 Hrs Date Time Temp Pulse Resp B/P (MAP) Pulse Ox O2 Delivery O2 Flow Rate FiO2 04/07/17 17:24 97 143/84 (103) 04/07/17 16:45 88 18 140/88 (105) 95 Room Air 04/07/17 16:15 88 18 143/91 (108) 95 Room Air 04/07/17 16:00 95 Room Air 04/07/17 15:45 90 17 149/88 (108) 95 Room Air 04/07/17 15:30 97 17 127/87 (100) 94 Room Air 04/07/17 15:15 94 16 130/83 (99) 95 Room Air 04/07/17 15:00 80 16 137/80 (99) 98 Room Air 04/07/17 15:00 36.3 92 18 135/83 (100) 96 Room Air 92 04/07/17 14:45 80 16 142/80 (100) 98 Room Air 04/07/17 12:00 Nasal Cannula 2.0 Physical Exam: General- No acute distress Head- atraumatic Eyes- PERRL, EOMI ENT- oropharynx clear Neck- supple, no JVD Lungs- No crackles Heart- regular rhythm, +murmur Abdomen- normal bowel sounds, nontender Extremities-no calf tenderness Neuro- alert, oriented x 3; PERRL, EOMI Skin- warm & dry Laboratory Results: Last 24 Hours Test 04/06/17 21:33 04/07/17 04:48 04/07/17 12:47 04/07/17 13:07 Activated Partial Thromboplast Time 123.5 SECONDS 62.0 SECONDS Partial Thromboplastin Ratio 4.8 2.4 White Blood Count 12.66 K/uL Red Blood Count 3.72 M/uL Hemoglobin 12.3 g/dL Hematocrit 35.8 % Mean Corpuscular Volume 96.2 fL Mean Corpuscular Hemoglobin 33.1 pg Mean Corpuscular Hemoglobin Concent 34.4 g/dl RDW Standard Deviation 50.2 fL RDW Coefficient of Variation 14.2 % Platelet Count 246 K/uL Mean Platelet Volume 9.5 fL Sodium Level 137 mmol/L Potassium Level 4.0 mmol/L Chloride Level 107 mmol/L Carbon Dioxide Level 25 mmol/L Anion Gap 5.0 mmol/L Blood Urea Nitrogen 27 mg/dl Creatinine 1.40 mg/dl Est Creatinine Clear Calc Drug Dose 52.0 ml/min Estimated GFR () 60.7 Estimated GFR (Non- 52.4 BUN/Creatinine Ratio 19.1 Random Glucose 134 mg/dl Calcium Level 8.1 mg/dl 25-Hydroxy Vitamin D Total 9.2 ng/ml Parathyroid Hormone (Intact) 74.4 pg/mL Kaolin Activated Coagulation Time 114 SECONDS 241 SECONDS Test 04/07/17 14:02 Kaolin Activated Coagulation Time 252 SECONDS Assessment & Plan CHEST PAIN NON-ST ELEVATION MYOCARDIAL INFARCTION s/p 2-vessel CABG 2003 with ARREDONDO to LAD and SVG to right PDA. cath in 2009 demonstrated patent ARREDONDO to LAD and occluded SVG to right PDA. Proximal LAD was occluded. 70% stenosis of LAD distal to ARREDONDO graft insertion was noted. Elevated troponin 0.55--> 0.9--> 1 EKG changes on admission Continue Aspirin, nitrate, Plavix, statin and metoprolol Cardiology on board Cardiac cath done today with finding ARREDONDO to LAD patent. LAD occluded at origin. Circ is patent. RCA mid 95%. SVG to RCA previously occluded. Heparin drip discontinue by cardio Continue monitor in tele ECHO Showed * Small, underfilled LV chamber size with mild concentric LVH. * Mildly reduced LV systolic function, EF 45-50%. * Moderate hypokinesis of the inferior/inferoseptal carnes, otherwise, hypderdynamic wall motion. * Grade I diastolic dysfunction. * The right ventricular cavity size is normal (basal dimension <4.2 cm in right ventricular apical 4-chamber view). * The right ventricular systolic function is mildly reduced. * Aortic valve sclerosis mild, without significant aortic valvular stenosis. * Mild left atrial enlargement. RON ON CKD STAGE 3 Creatine on admission 2.1, baseline 1.3 Creatine improve to 1.6 ---> 1.4 today S/P cardiac cath today, will need to try to prevent contrast-induced nephrotoxicity Nephrology consulted Continue IV hydration Renal U/S showed no renal calculi or hydronephrosis. Mild bilateral renal cortical thinning, right greater than left. Continue monitor BMP HYPERTENSION Continue holding HCTZ due to elevated creatinine. Continue metoprolol, amlodipine, losartan. Continue monitor BMP. EPISTAXIS Compliant of dry nose Has been on heparin drip Resolved after applied pressure Will add nasal saline prn Will consider to use humidified oxygen Continue monitor COPD Change bronchodilator therapy to levalbuterol because of tachycardia. LEUKOCYTOSIS possible reactive WBC elevated on admission 17K. CTA chest showed no acute intrathoracic findings Afebrile, No sign of infection. WBC 12K Monitor CBC ALCOHOL CONSUMPTION No sign of alcohol withdraw Alcohol withdrawal protocol ordered. Continue gabapentin. Lorazepam PRN per withdrawal protocol. Thiamine daily. DVT PROPHYLAXIS heparin drip d/c Will start on heparin subq CODE STATUS FULL CODE Consultants: Cardio nephro Current Inpatient Medications: Current Inpatient Medications Medications (Trade) Dose Ordered Sig/Dipti Route Start Time Stop Time Status Last Admin Dose Admin Ioversol (Optiray 320) 100 ml UD PRN IV 04/05/17 23:30 04/09/17 23:29 Nitroglycerin (Nitrostat Tab) 0.4 mg UD PRN SL 04/06/17 00:30 05/06/17 00:29 Aspirin (Ecotrin Tab) 81 mg QAM PO 04/06/17 09:00 05/06/17 08:59 04/06/17 08:25 81 MG Amlodipine Besylate (Norvasc Tab) 10 mg QAM PO 04/06/17 09:00 05/06/17 08:59 04/07/17 07:51 10 MG Atorvastatin Calcium (Lipitor Tab) 80 mg QPM PO 04/06/17 21:00 05/06/17 20:59 04/06/17 20:43 80 MG Fluticasone Propionate (Flonase Nasal [place]) 2 sprays DAILY KYLEE 04/06/17 09:00 05/06/17 08:59 04/07/17 07:53 2 SPRAYS Folic Acid (Folvite Tab) 1 mg DAILY PO 04/06/17 09:00 05/06/17 08:59 04/07/17 07:53 1 MG Gabapentin (Neurontin Cap) 300 mg TID PO 04/06/17 09:00 05/06/17 08:59 04/07/17 15:33 300 MG Loratadine (Claritin Tab) 10 mg DAILY PO 04/06/17 09:00 05/06/17 08:59 04/07/17 07:52 10 MG Metoprolol Tartrate (Lopressor Tab) 50 mg BID PO 04/06/17 09:00 05/06/17 08:59 04/07/17 07:51 50 MG Montelukast Sodium (Singulair Tab) 10 mg DAILY PO 04/06/17 09:00 05/06/17 08:59 04/07/17 07:52 10 MG Tiotropium [place] (Spiriva Handihaler Inhaler) 1 puff QAM INH 04/06/17 09:00 05/06/17 08:59 04/07/17 07:54 1 PUFF Levalbuterol (Xopenex Hfa Inhaler) 2 puffs Q6H PRN INH 04/06/17 01:15 05/06/17 01:14 Losartan Potassium (coZAAR TAB) 100 mg QAM PO 04/06/17 09:00 05/06/17 08:59 04/07/17 07:52 100 MG Potassium Chloride/Dextrose/ Sod Cl 1,000 ml @ 75 mls/hr [id number] IV 04/06/17 02:00 05/06/17 01:59 04/07/17 00:36 75 MLS/HR Thiamine HCl (Vitamin B-1 Tab) 100 mg DAILY PO 04/06/17 09:00 05/06/17 08:59 04/07/17 07:53 100 MG Lorazepam (Ativan Tab) 1 mg ONE PRN PO 04/06/17 01:45 Lorazepam (Ativan Inj) 1 mg ONE PRN IV 04/06/17 01:45 Acetaminophen (Tylenol Tab) 650 mg Q4H PRN PO 04/06/17 23:45 05/06/17 23:44 04/07/17 00:32 650 MG Sodium Chloride 1,000 ml @ 100 mls/hr Q10H IV 04/07/17 15:00 04/07/17 22:29 04/07/17 15:32 100 MLS/HR Atropine Sulfate (Atropine Sulfate 0.1MG/Ml Inj) 0.5 mg ONE PRN IV 04/07/17 15:00 05/07/17 14:59 Ondansetron HCl (Zofran Inj) 4 mg Q6H PRN IV 04/07/17 15:00 05/07/17 14:59 Ticagrelor (Brilinta Tab) 90 mg BID PO 04/07/17 21:00 05/07/17 20:59 UNV Famotidine (Pepcid Tab) 20 mg BID PO 04/07/17 21:00 05/07/17 20:59
--- NOTE | 2017-04-07 18:43 | Cardiac Catheterization ---
Procedure Note Procedure Date Apr 07, 2017. Pre-Procedure Diagnosis Non STEMI AUC Score 8 Post-Procedure Diagnosis Severe CAD, Successful PCI Procedure(s) Performed Drug Eluting Stent Desk Assistant Pelon Polysomnographer(s) Jax/Ermelinda Estimated Blood Loss 25 Medication(s) Fentanyl, Heparin, Nitroglycerin, Versed, Lidocaine 1% Brillanta 180mg Summary of Findings Indication: Patient here with high-risk NSTEMI. Post remote 2v CABG with known occluded SVG -RCA. Found on coronary angiography by Dr. Cruz to have a diffusely calcified proximal to mid RCA with focal 99% stenosis. 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 Eventually able to pass 1.5 balloon to distal vessel with the aid of guideliner. Whisper wire exchanged for Mailman wire Patient developed ST elevations and noted to have significant proximal to mid RCA dissection with minimal staining in the RCA cusp Flow re-established with repeated 1.5, 2.0 and 2.5 balloon inflations from mid to proximal segment Most calcified areas pre-dilated with 2.5 NC balloon to high-atmospheres Eventually dilated mid lesion stented with 2.75 x 15 Miguel JESSICA 2nd stent placed overlapping initial stent distally and extending almost to RCA ostium Stent post-dilated with 2.75 noncompliant balloon IC vasodilators administered for spasm Post procedure PUJA 3 flow, stent well expanded with minimal residual stenosis and no residual dissection. Post procedure limited echo showed no pericardial effusion or other apparent complications. Arterial Closure: Mynx Summary: 1. Successful PCI of ostial to mid RCA with 2 overlapping JESSICA (2.75 x 18, 2.75 x 15 [place]). Recommendations: To PCU for continued monitoring Loaded with Ticagrelor 180mg Continue dual-antiplatelet therapy for at least 1 year Continue statin, and ASCVD risk factor modification per Dr. Spangler Consult cardiac Rehab Hemodynamics Rest Ao: 126/66/93 Final Ao: 129/70/96 LV: 132/20 Recommendations PCI without planned CABG Specimens None Radiation Exposure (mGy) 6437 Contrast (mls) 276 total Fluids (cc crystalloids) 259 Drains None Anesthesia Moderate Procedural Complication(s) None Disposition PCU ACC Data Cardiac Status Clinical evaluation leading to the procedure CAD Presntation: Non STEMI Anginal Classification: CCS IV Heart Failure: No, NYHA Class: CCS I Diagnostic Physician's Name: Devyn Cruz, Status: Elective Closure Device Percutaneous Entry Location: Femoral Closure Device: Mynx Recommendations: PCI without planned CABG PCI Indication: PCI for high risk Non-STEMI Lesion Segment Name: mid RCA Culprit Artery: Yes Stenosis Prior to Rx (%): 99 Chronic Total Occlusion: No IVUS: No FFR: No Pre-Procedure PUJA Flow: 3 Previously Treated Lesion: No Lesion Complexity: High/C Lesion Length (mm): 25 Thrombus Present: No Bifurcation Lesion: No Guidewire Across Lesion: Yes Guidewire: Stenosis Post-Procedure (%): 0 Post-Procedure PUJA Flow: 3 Device(s) Deployed: Yes Intraprocedure Events Significant Dissection: No Perforation: No
--- NOTE | 2017-04-07 20:00 | NUR ---
A: Patient resting in bed. Denies any pain or SOB. NSR on the monitor. VS stable. Call gentile is in reach.
[2017-04-07] MEDS ORDERED: TICAGRELOR 90 MG TAB PO SCH (21:00)
--- NOTE | 2017-04-07 21:00 | NUR ---
Patient's right groin cath site was oozing a small amount again. Held pressure for 20 minutes and replaced the dressing. Patient tolerated this well.
[2017-04-07] MEDS: FAMOTIDINE 20 MG TAB PO SCH (21:05)
[2017-04-07] MEDS: ATORVASTATIN 40 MG TAB PO SCH (21:06)
[2017-04-07] MEDS: HEPARIN SOD 5000 UNIT/0.5 ML CARP SQ SCH (21:08)
--- NOTE | 2017-04-07 22:03 | NUR ---
No new oozing found on patient's right groin dressing. Will continue to monitor closely.
[2017-04-08 00:01] VITALS: O2SAT 93
--- NOTE | 2017-04-08 00:02 | NUR ---
A: Assessment completed- see EMR for full detail; VSS, - see EMR; AA&Ox4, Appropriate; NSR, noted on monitor; Denies CP/SOB, On room Air; pt. denies pain at this time;Right groin site with 4x4 and Elastoplast, 4x4 saturated with blood, site noted to be oozing small amounts of blood, manual pressure held x10 min, fresh dressing reapplied; Pt. currently resting comfortably in bed; no needs apparent or verbalized at this time; IV site intact- IV infusing per order see eMAR; call-gentile & items of necessity in reach, encouraged to ring for assistance;
[2017-04-08] MEDS: TICAGRELOR 90 MG TAB PO SCH ×2 (01:03→09:00)
[2017-04-08] MEDS: D5W AND 1/2NSS + 20MEQ KCL 1,000 ML IV SCH (01:04)
[2017-04-08 03:40] VITALS: BP 137/81; PULSE 76; TEMP 36.7; O2SAT 97
[2017-04-08 04:00] VITALS: O2SAT 93
--- NOTE | 2017-04-08 04:08 | NUR ---
A: Assessment completed- see EMR for full detail; VSS, - see EMR; AA&Ox4, Appropriate; NSR, noted on monitor; Denies CP/SOB, On room Air; pt. denies pain at this time;Right groin site with 4x4 and Elastoplast CDI no further bleeding; no needs apparent or verbalized at this time; IV site intact- IV infusing per order see eMAR; call-gentile & items of necessity in reach, encouraged to ring for assistance;
[2017-04-08 05:51] LABS: HEMATOCRIT 36.6 % (42-52); HEMOGLOBIN 12.2 g/dL (14.0-18.0); MEAN CELL VOLUME 96.8 fL (80-100); MEAN CORPUSCULAR HEMOGLOBIN 32.3 pg (25-34); MEAN CORPUSCULAR HGB CONC 33.3 g/dl (32-36); MEAN PLATELET VOLUME 9.5 fL (7.4-10.4); PLATELET COUNT 233 K/uL (130-400); RED CELL DISTRIBUTION WIDTH CV 14.2 % (11.5-14.5); RED CELL DISTRIBUTION WIDTH SD 49.9 fL (36.4-46.3); WHITE BLOOD COUNT 10.54 K/uL (4.8-10.8)
[2017-04-08 05:58] LABS: PTT PATIENT 23.3 SECONDS (21.0-31.0)
[2017-04-08] MEDS: HEPARIN SOD 5000 UNIT/0.5 ML CARP SQ SCH (06:00)
[2017-04-08 06:21] LABS: CALCIUM 8.2 mg/dl (8.5-10.1); CREATININE 1.1 mg/dl (0.60-1.40)
[2017-04-08 07:49] VITALS: BP 158/84; PULSE 76; TEMP 36.6; O2SAT 97
--- NOTE | 2017-04-08 08:00 | NUR ---
Patient assessed around this time. see EMR for more details. vss. no c/o pain nausea sob. call gentile in reach safety reviewed needs addressed. Patient resting in chair. SR on monitor. IV patent and intact.
--- NOTE | 2017-04-08 08:45 | NUR ---
Dr Carrillo at bedside at this time. ok to given brilinta now to get patient on a regular schedule rather than 0100 and 1300. Patient disconnected from IVF per orders. plan for discharge today per Dr. Cruz and Dr. carrillo patient ok to ambulate in the halls.
[2017-04-08] MEDS: LOSARTAN POTASSIUM 50 MG TAB PO SCH (08:51)
[2017-04-08] MEDS: THIAMINE HCL 100 MG TAB PO SCH (08:51)
[2017-04-08] MEDS: MONTELUKAST SOD 10 MG TAB PO SCH (08:51)
[2017-04-08] MEDS: GABAPENTIN 300 MG CAP PO SCH (08:51)
[2017-04-08] MEDS: LORATADINE 10 MG TAB PO SCH (08:52)
[2017-04-08] MEDS: METOPROLOL TARTRATE 50 MG TAB PO SCH (08:52)
[2017-04-08] MEDS: TIOTROPIUM BROMIDE 5 PUFF/90 MCG INH INH SCH (08:52)
[2017-04-08] MEDS: FLUTICASONE PROPIONATE NA SPR 16 GM BTL NAE SCH (08:52)
[2017-04-08] MEDS: FAMOTIDINE 20 MG TAB PO SCH (08:52)
[2017-04-08] MEDS: AMLODIPINE BESYLATE 5 MG TAB PO SCH (08:53)
[2017-04-08] MEDS: ASPIRIN 81 MG ECTAB PO SCH (08:53)
--- NOTE | 2017-04-08 09:14 | CARDIOLOGY PROGRESS NOTE ---
DATE: 04/08/2017 DATE: 04/08/2017 FOLLOW-UP VISIT SUBJECTIVE: The patient is a 67-year-old male who has a history of prior coronary artery bypass surgery and presented with a non-STEMI. He underwent a cardiac catheterization yesterday that revealed a high grade stenosis in the right coronary artery which was the culprit lesion. He received a drug-eluting stent within the right coronary artery. He has no complaints this morning. He had an uneventful night. OBJECTIVE: GENERAL: He is alert and oriented in no acute distress. VITAL SIGNS: Blood pressure is 130/80, pulse is regular at 70. He is afebrile. HEAD, EYES, EARS, NOSE, AND THROAT: Normocephalic. Pupils are equal and reactive to light. Extraocular muscles are intact bilaterally. NECK: The neck veins are flat. Carotids have good upstrokes bilaterally without bruits. Thyroid is nonpalpable. RESPIRATORY: Breath sounds equal bilaterally and clear to auscultation. CARDIOVASCULAR: Heart has a regular rhythm. Normal S1, S2. No S3, S4. No cardiac rubs or murmurs. GASTROINTESTINAL: Abdomen is soft, nontender without organomegaly. EXTREMITIES: Free of edema, digit clubbing, or cyanosis. NEUROLOGIC: Grossly intact. SKIN: Warm to touch. LYMPH NODES: Negative to palpation. LABORATORY DATA: Creatinine is 1.1, potassium is 4.0. Hemoglobin is 12.2. IMPRESSION: 1. Non-ST elevation myocardial infarction. 2. Drug-eluting stent right coronary artery. 3. Previous coronary artery bypass surgery. RECOMMENDATIONS: The patient's calf area looks good. There is only a small amount of ecchymosis. He can be discharged home with outpatient followup. I will arrange followup through our office in the next 2-3 weeks. He should remain on his current inpatient medications, especially the Brilinta and aspirin.
--- NOTE | 2017-04-08 10:59 | Progress Note ---
Medicine Progress Note Date & Time of Visit: Apr 08, 2017 at 10:47. Subjective Pt was seen and examined Sitting in chair with no distress Pt said that he feels fine He said that he had some oozing last night in the right area Oozing stopped after applying pressure on it. Pt denies any chest pain, palpitation, dizziness and SOB Objective Last 8 Hrs Date Time Temp Pulse Resp B/P (MAP) Pulse Ox O2 Delivery O2 Flow Rate FiO2 04/08/17 08:00 Room Air 04/08/17 07:49 36.6 76 19 158/84 (108) 97 Room Air 04/08/17 04:00 93 Room Air 04/08/17 03:40 36.7 76 18 137/81 (99) 97 Room Air Physical Exam: General- No acute distress Head- atraumatic Eyes- PERRL, EOMI ENT- oropharynx clear Neck- supple, no JVD Lungs- No crackles Heart- regular rhythm, +murmur Abdomen- normal bowel sounds, nontender Extremities-no calf tenderness Neuro- alert, oriented x 3; PERRL, EOMI Skin- warm & dry Laboratory Results: Last 24 Hours Test 04/07/17 12:47 04/07/17 13:07 04/07/17 14:02 04/08/17 05:12 Kaolin Activated Coagulation Time 114 SECONDS 241 SECONDS 252 SECONDS White Blood Count 10.54 K/uL Red Blood Count 3.78 M/uL Hemoglobin 12.2 g/dL Hematocrit 36.6 % Mean Corpuscular Volume 96.8 fL Mean Corpuscular Hemoglobin 32.3 pg Mean Corpuscular Hemoglobin Concent 33.3 g/dl RDW Standard Deviation 49.9 fL RDW Coefficient of Variation 14.2 % Platelet Count 233 K/uL Mean Platelet Volume 9.5 fL Activated Partial Thromboplast Time 23.3 SECONDS Partial Thromboplastin Ratio 0.9 Sodium Level 139 mmol/L Potassium Level 4.0 mmol/L Chloride Level 107 mmol/L Carbon Dioxide Level 26 mmol/L Anion Gap 5.0 mmol/L Blood Urea Nitrogen 18 mg/dl Creatinine 1.10 mg/dl Est Creatinine Clear Calc Drug Dose 66.8 ml/min Estimated GFR () 81.2 Estimated GFR (Non- 70.1 BUN/Creatinine Ratio 16.2 Random Glucose 117 mg/dl Calcium Level 8.2 mg/dl Assessment & Plan CHEST PAIN NON-ST ELEVATION MYOCARDIAL INFARCTION s/p 2-vessel CABG 2003 with ARREDONDO to LAD and SVG to right PDA. cath in 2009 demonstrated patent ARREDONDO to LAD and occluded SVG to right PDA. Proximal LAD was occluded. 70% stenosis of LAD distal to ARREDODNO graft insertion was noted. Elevated troponin 0.55--> 0.9--> 1 EKG changes on admission Continue Aspirin, nitrate, Brilinta, statin and metoprolol No arrhythmia on tele monitor Cardiology on board Cardiac cath done today with finding ARREDONDO to LAD patent. LAD occluded at origin. Circ is patent. RCA mid 95%. SVG to RCA previously occluded. Successful PCI of ostial to mid RCA with 2 overlapping JESSICA (2.75 x 18, 2.75 x 15 Miguel). Heparin drip discontinue by cardio yesterday Consider cardiac rehab Follow up with Cardio between 2 to 3 weeks ECHO Showed * Small, underfilled LV chamber size with mild concentric LVH. * Mildly reduced LV systolic function, EF 45-50%. * Moderate hypokinesis of the inferior/inferoseptal carnes, otherwise, hypderdynamic wall motion. * Grade I diastolic dysfunction. * The right ventricular cavity size is normal (basal dimension <4.2 cm in right ventricular apical 4-chamber view). * The right ventricular systolic function is mildly reduced. * Aortic valve sclerosis mild, without significant aortic valvular stenosis. * Mild left atrial enlargement. RON ON CKD STAGE 3 Creatine on admission 2.1, baseline 1.3 Creatine improve to 1.6 ---> 1.4---> 1.1 today S/P cardiac cath today, will need to try to prevent contrast-induced nephrotoxicity Nephrology consulted Continue IV hydration Renal U/S showed no renal calculi or hydronephrosis. Mild bilateral renal cortical thinning, right greater than left. Resolved VIT D Deff Will start on Vit D supplement HYPERTENSION Continue holding HCTZ due to elevated creatinine. Continue metoprolol, amlodipine, losartan. Resume HCTZ on discharge Continue monitor BMP. EPISTAXIS Compliant of dry nose Has been on heparin drip Resolved after applied pressure Will add nasal saline prn Will consider to use humidified oxygen Resolved COPD Change bronchodilator therapy to levalbuterol because of tachycardia. LEUKOCYTOSIS possible reactive WBC elevated on admission 17K. CTA chest showed no acute intrathoracic findings Afebrile, No sign of infection. WBC WNL now Monitor CBC ALCOHOL CONSUMPTION No sign of alcohol withdraw Alcohol withdrawal protocol ordered. Continue gabapentin. Lorazepam PRN per withdrawal protocol. Thiamine daily. DVT PROPHYLAXIS heparin drip d/c yesterday CODE STATUS FULL CODE Consultants: Cardio nephro Current Inpatient Medications: Current Inpatient Medications Medications (Trade) Dose Ordered Sig/Dipti Route Start Time Stop Time Status Last Admin Dose Admin Ioversol (Optiray 320) 100 ml UD PRN IV 04/05/17 23:30 04/09/17 23:29 Nitroglycerin (Nitrostat Tab) 0.4 mg UD PRN SL 04/06/17 00:30 05/06/17 00:29 Aspirin (Ecotrin Tab) 81 mg QAM PO 04/06/17 09:00 05/06/17 08:59 04/08/17 08:53 81 MG Amlodipine Besylate (Norvasc Tab) 10 mg QAM PO 04/06/17 09:00 05/06/17 08:59 04/08/17 08:53 10 MG Atorvastatin Calcium (Lipitor Tab) 80 mg QPM PO 04/06/17 21:00 05/06/17 20:59 04/07/17 21:06 80 MG Fluticasone Propionate (Flonase Nasal [place]) 2 sprays DAILY KYLEE 04/06/17 09:00 05/06/17 08:59 04/08/17 08:52 2 SPRAYS Folic Acid (Folvite Tab) 1 mg DAILY PO 04/06/17 09:00 05/06/17 08:59 04/08/17 08:52 1 MG Gabapentin (Neurontin Cap) 300 mg TID PO 04/06/17 09:00 05/06/17 08:59 04/08/17 08:51 300 MG Loratadine (Claritin Tab) 10 mg DAILY PO 04/06/17 09:00 05/06/17 08:59 04/08/17 08:52 10 MG Metoprolol Tartrate (Lopressor Tab) 50 mg BID PO 04/06/17 09:00 05/06/17 08:59 04/08/17 08:52 50 MG Montelukast Sodium (Singulair Tab) 10 mg DAILY PO 04/06/17 09:00 05/06/17 08:59 04/08/17 08:51 10 MG Tiotropium Froid (Spiriva Handihaler Inhaler) 1 puff QAM INH 04/06/17 09:00 05/06/17 08:59 04/08/17 08:52 1 PUFF Ticagrelor (Brilinta Tab) 90 mg BID@0100,1300 PO 04/06/17 13:00 05/06/17 12:59 04/08/17 09:00 90 MG Levalbuterol (Xopenex Hfa Inhaler) 2 puffs Q6H PRN INH 04/06/17 01:15 05/06/17 01:14 Losartan Potassium (coZAAR TAB) 100 mg QAM PO 04/06/17 09:00 05/06/17 08:59 04/08/17 08:51 100 MG Thiamine HCl (Vitamin B-1 Tab) 100 mg DAILY PO 04/06/17 09:00 05/06/17 08:59 04/08/17 08:51 100 MG Lorazepam (Ativan Tab) 1 mg ONE PRN PO 04/06/17 01:45 Lorazepam (Ativan Inj) 1 mg ONE PRN IV 04/06/17 01:45 Acetaminophen (Tylenol Tab) 650 mg Q4H PRN PO 04/06/17 23:45 05/06/17 23:44 04/07/17 00:32 650 MG Atropine Sulfate (Atropine Sulfate 0.1MG/Ml Inj) 0.5 mg ONE PRN IV 04/07/17 15:00 05/07/17 14:59 Ondansetron HCl (Zofran Inj) 4 mg Q6H PRN IV 04/07/17 15:00 05/07/17 14:59 Famotidine (Pepcid Tab) 20 mg BID PO 04/07/17 21:00 05/07/17 20:59 04/08/17 08:52 20 MG Heparin Sodium (Porcine) (Heparin Sq 5000 Unit/0.5ml) 5,000 unit Q8 SQ 04/07/17 22:00 05/07/17 21:59
[2017-04-08] MEDS ORDERED: ERGO500011 PO (11:13)
[2017-04-08] MEDS ORDERED: BRL90 PO (11:13)
--- NOTE | 2017-04-08 11:24 | Discharge Instructions ---
Discharge Instructions Date of Service Apr 08, 2017. Admission Reason for Admission: Chest Pain Discharge Discharge Diagnosis / Problem: CHEST PAIN/NON-ST ELEVATION MYOCARDIAL INFARCTION/RON ON CKD STAGE 3 Discharge Goals Goal(s): Decrease discomfort, Improve function, Improve disease control Activity Recommendations Activity Limitations: resume your previous activity (as tolerated ) . Instructions / Follow-Up Instructions / Follow-Up Follow up with your primary care provider Dr. Simmons on 04/12 @ 10:45 AM Follow up with Cardiology Dr. Hoover on Apr 26 @ 10:45 AM Continue aspirin and Brilinta for at least 1 year Notify your physician if you develop any abnormal bleeding Recommend Cardiac rehab (your physician or your office nurse practitioner will arrange for that) Check BMP in 1 week Counseling on alcohol cessation Current Hospital Diet Patient's current hospital diet: AHA Diet (Heart Healthy) Discharge Diet Recommended Diet: AHA Diet (Heart Healthy) Pending Studies Studies pending at discharge: no Laboratory Results Lipid Panel Test 04/06/17 06:08 Range/Units Triglycerides Level 151 H 0-150 mg/dl Cholesterol Level 139 0-200 mg/dl HDL Cholesterol 55 mg/dl Cholesterol/HDL Ratio 2.5 LDL Cholesterol, Calculated 54 mg/dl Medical Emergencies . Who to Call and When: Medical Emergencies: If at any time you feel your situation is an emergency, please call 911 immediately. . Non-Emergent Contact Non-Emergency issues call your: Primary Care Provider, Self Defense Instructor Call Non-Emergent contact if: you have any medication questions . . "Provider Documentation" section prepared by Pancho Carrillo. . VTE Core Measure Inpt VTE Proph given/why not?: Other Anticoagulation (IV heparin)
[2017-04-08 11:31] VITALS: BP 158/84; PULSE 76; TEMP 36.6; O2SAT 97
[2017-04-08 11:47] VITALS: BP 119/72; PULSE 60; TEMP 36.6; O2SAT 97
--- NOTE | 2017-04-08 12:00 | NUR ---
Patient and provided with discharge instructions and prescriptions all questions answered. IV and tele removed. Patient to be discharged with via WC with prescriptions for Vit D and Brilinta and all belongings.
[2017-04-30] MEDS ORDERED: PANT1TAB4 PO (15:04)
[2017-04-30] MEDS ORDERED: METO50TA16 PO (15:04)
[2017-04-30] MEDS ORDERED: LPR25 PO (15:04)
[2017-04-30] MEDS ORDERED: IMDSR30 PO (15:04)
--- NOTE | 2017-05-03 10:50 | Discharge Summary ---
Discharge Summary Date of Service May 03, 2017. Discharge Summary Admission Date: Apr 06, 2017 at 00:26 Discharge Date: Apr 08, 2017 Discharge Disposition: Home Principal Diagnosis: NON-ST ELEVATION MYOCARDIAL INFARCTION Secondary Diagnoses/Problems: RON ON CKD STAGE 3 VIT D DEF HTN EPISTAXIS LEUKOCYTOSIS COPD LEUKOCYTOSIS ALCOHOL CONSUMPTION Procedures: CARDIAC CATH WITH SUCCESSFUL PCI Interpretation Summary * Name: GEORGE MOMIN Study Date: 04/06/2017 06:58 AM BP: 145/82 mmHg * Patient Location: [facility]\\S\\[facility]\\S\\1 HR: 87 * : 1950 (M/d/yyyy) Gender: Male Height: 67 in * Age: 67 yrs Ethnicity: [place] Weight: 178 lb * Ordering Physician: Irvin Luna * Referring Physician: Ramirez Hoover D.O. * Performed By: Meme Bro RCS * * Reason For Study: AMI * BSA: 1.9 m2 * -- Conclusions -- * Small, underfilled LV chamber size with mild concentric LVH. * Mildly reduced LV systolic function, EF 45-50%. * Moderate hypokinesis of the inferior/inferoseptal carnes, otherwise, hypderdynamic wall motion. * Grade I diastolic dysfunction. * The right ventricular cavity size is normal (basal dimension <4.2 cm in right ventricular apical 4-chamber view). * The right ventricular systolic function is mildly reduced. * Aortic valve sclerosis mild, without significant aortic valvular stenosis. * Mild left atrial enlargement. Procedure Details * A complete two-dimensional transthoracic echocardiogram was performed (2D, M- mode, Doppler and color flow Doppler). Left Ventricle * The left ventricular cavity is small. * There is mild concentric left ventricular hypertrophy. * Ejection Fraction = 45-50%. * Left ventricular systolic function is mildly reduced. * Moderate hypokinesis of the inferior/inferoseptal carnes, otherwise, hypderdynamic wall motion. Right Ventricle * The right ventricular cavity size is normal (basal dimension <4.2 cm in right ventricular apical 4-chamber view). * The right ventricular systolic function is mildly reduced. Atria * The left atrium is mildly dilated. * Right atrial size is normal. * No ASD detected; PFO is not assessed. Mitral Valve * The mitral valve is normal in structure and function. Tricuspid Valve * The tricuspid valve is normal in structure and function. Aortic Valve * The aortic valve is trileaflet. * Aortic valve sclerosis mild, without significant aortic valvular stenosis. * There is no significant aortic regurgitation. Pulmonic Valve * The pulmonary valve is not well seen, but the Doppler examination is normal without significant regurgitation or stenosis. Great Vessels * The aortic root and proximal ascending aorta are normal sized. Pericardium/Pleural * There is no pericardial effusion. Left Ventricular Diastolic Function * Grade I diastolic dysfunction, (abnormal relaxation pattern). [~ rep ct add3]] (RENAL)RETROPERITON COMP HISTORY: 67 years-old Male check size of kidneys and screen for medical renal disease concern for possible medical renal disease. COMPARISON: CTA of the chest of same day TECHNIQUE: Multiple real-time sonographic images of the kidneys and urinary bladder were obtained assessing grayscale appearance and color flow FINDINGS: Right kidney measures 9.0 x 5.7 x 6.0 cm without renal calculi or hydronephrosis. Mild cortical thinning of the right kidney measuring up to 1.4 cm. Cortical medullary differentiation is preserved. Left kidney measures 9.0 x 6.3 x 5.6 cm without renal calculi or hydronephrosis. Mild cortical thinning is noted predominantly within the lower pole. Cortex measures up to 2.1 cm. Cortical medullary differentiation preserved. Bilateral ureteral jets noted. Urinary bladder is unremarkable. Mildly increased echogenicity of the liver suspicious for fatty infiltration. IMPRESSION: 1. No renal calculi or hydronephrosis. 2. Mild bilateral renal cortical thinning, right greater than left. 3. Suggested fatty infiltration of the liver. The above report was generated using voice recognition software. It may contain grammatical, syntax or spelling errors. Electronically signed by: Reese Desai M.D. 04/06/2017 1:46 PM Dictated Date/Time: 04/06/2017 1:42 PM [~ rep ct add3]] CHEST COMBO ANGIO DISSECTION CLINICAL HISTORY: Chest pain and chest tightness. COMPARISON STUDY: Chest radiograph performed earlier today and April 28, 2015. TECHNIQUE: Unenhanced and arterial phase imaging of the chest was performed. Injection of 64 cc of Optiray 320 IV was uneventful. Sagittal and coronal reconstructions were viewed as well as maximal intensity projections on an independent 3-D workstation. FINDINGS: There are median sternotomy wires and postsurgical findings consistent with bypass grafting. There is extensive coronary artery calcification. The heart is mildly enlarged. There is no pericardial effusion. There is no intramural hematoma within the thoracic aorta. There is no thoracic aortic dissection. There is moderate atherosclerotic plaque of the vascular aorta and great vessels. No enlarged thoracic lymph nodes are present. Central airways are patent. There are numerous calcified and noncalcified pleural plaques. Subpleural groundglass and linear opacities suggest scarring or atelectasis. There is no consolidation to suggest pneumonia. No abnormalities of the bony thorax are present. Fatty infiltration of the liver is noted. IMPRESSION: 1. No thoracic aortic dissection. 2. No acute intrathoracic findings. 3. Calcified and noncalcified pleural plaques which suggest asbestos related pleural disease. Electronically signed by: David Shields M.D. 04/06/2017 7:33 AM Dictated Date/Time: 04/06/2017 7:27 AM CHEST ONE VIEW PORTABLE CLINICAL HISTORY: Chest pain and shortness of breath. COMPARISON STUDY: Chest radiograph April 28, 2015. FINDINGS: There are median sternotomy wires. No pneumothorax or pleural effusion is noted. Calcified pleural plaques are noted. Lower lung predominant interstitial thickening is noted. There is no lobar consolidation. There is mild cardiomegaly. No evidence for overt pulmonary edema. IMPRESSION: 1. Increased bibasilar markings which likely reflect normal vessels or atelectasis. 2. Mild cardiomegaly without evidence for overt pulmonary edema. Electronically signed by: David Shields M.D. 04/06/2017 7:09 AM Dictated Date/Time: 04/06/2017 7:07 AM Consultations: Cardio nephro Medication Reconciliation New Medications: Ergocalciferol (Vitamin D 33505 Unit) 50,000 Unit Cap 1 CAP PO WK, #4 CAP 2 Refills Continued Medications: Albuterol Hfa (Ventolin Hfa) 200 Puffs/69082 Mcg Aers 2 PUFFS INH Q4 PRN for SOB/Wheezing, #1 INHALER Amlodipine Besylate (Norvasc) 10 Mg Tab 10 MG PO QAM, TAB Aspirin (Aspirin Ec) 81 Mg Tab 81 MG PO DAILY Atorvastatin (Lipitor) 80 Mg Tab 80 MG PO QPM, TAB Fluticasone Propionate (Nasal) (Flonase Allergy Relief) 50 Mcg/Act Spr 2 SPRY KYLEE DAILY Folic Acid (Folvite) 1 Mg Tab 1 MG PO DAILY, TAB Hctz/Losartan (Hyzaar 25MG/100MG) Tab 1 TAB PO QAM, 0 Refills Loratadine (Claritin) 10 Mg Tab 10 MG PO DAILY, TAB Nitroglycerin (Nitrostat) 0.4 Mg Sub 0.4 MG UT UD PRN for Chest Pain, BTL Polyethylene Glycol-Propylene (Systane Ultra) 1 Nadira Nadira 1-2 DROPS OP UD PRN for dry eyes, #15 ML 1 Refill Tiotropium [place] (Spiriva Handihaler) 30 Puff/540 Mcg Aerp 1 CAP INH QAM, INHALER Admission Information HPI (per Admitting provider): 67 YO male followed by Dr. Simmons for Family Medicine. Receives cardiac care with Pete Mott PA-C and Dr. Hoover. History of coronary artery disease, CKD, hypertension, dyslipidemia, COPD, and other problems as noted below. S/P 2-vessl CABG 2003. Preop stress echo in April 2016 demonstrated some equivocal EKG changes, but no new wall motion abnormalities with stress. He underwent lumbar decompression and fusion without incident. This morning around 06:15 he awakened to use the bathroom and experienced some chest tightness and SOB when ambulating back to the bedroom. He thought that his COPD was acting up and used his rescue inhaler with improvement of symptoms. He was loading some firewood in his yard around 14:00 and experienced chest pressure radiating to his throat and dyspnea. Again, he attributed the symptoms to his COPD and took another dose of rescue inhaler with improvement. Later cut and loaded some firewood without too much difficulty. This evening around 21:30 developed more severe midsternal chest pressure that radiated to his left arm, associated with SOB. No associated diaphoresis, nausea, or vomiting. Took 2 sublingual NTG tabs with relief. Came to ED for evaluation. Recurrent chest tightness in ED waiting room. EKG showed ST with downsloping ST depression inferiorly and laterally. Received O2, aspirin, nitroglycerin ointment with relief of symptoms. CT chest did not show any evidence of aortic dissection. Pain-free at time of my assessment. . Physical Exam (per Admitting): General Appearance: WD/WN, no apparent distress Head: normocephalic, atraumatic Eyes: normal inspection, PERRL, EOMI, sclerae normal, + pertinent finding ( conjunctivae clear) ENT: normal ENT inspection, hearing grossly normal, pharynx normal Neck: supple, no adenopathy, thyroid normal, no JVD, trachea midline Respiratory/Chest: no respiratory distress, no accessory muscle use, + wheezing (diffuse, mild) Cardiovascular: regular rate, rhythm, no edema, no gallop, no JVD, normal peripheral pulses, + systolic murmur (II/ sys murmur at base) Abdomen/GI: normal bowel sounds, non tender, soft, no organomegaly, no pulsatile mass Extremities/Musculoskelatal: normal inspection, no calf tenderness, normal capillary refill, no pedal edema Neurologic/Psych: traveling clerk II-XII nml as tested (PERRL, EOMI, no facial palsy, no dysarthria), no motor/sensory deficits (upper and lower extremity strength intact), alert, normal mood/affect, oriented x 3 Skin: normal color, warm/dry, no rash Lymphatic: no adenopathy (cervical) Hospital Course CHEST PAIN NON-ST ELEVATION MYOCARDIAL INFARCTION s/p 2-vessel CABG 2003 with ARREDONDO to LAD and SVG to right PDA. cath in 2009 demonstrated patent ARREDONDO to LAD and occluded SVG to right PDA. Proximal LAD was occluded. 70% stenosis of LAD distal to ARREDONDO graft insertion was noted. Elevated troponin 0.55--> 0.9--> 1 EKG changes on admission Continue Aspirin, nitrate, Brilinta, statin and metoprolol No arrhythmia on tele monitor Cardiology on board Cardiac cath done today with finding ARREDONDO to LAD patent. LAD occluded at origin. Circ is patent. RCA mid 95%. SVG to RCA previously occluded. Successful PCI of ostial to mid RCA with 2 overlapping JESSICA (2.75 x 18, 2.75 x 15 [place]). Heparin drip discontinue by cardio yesterday Consider cardiac rehab Follow up with Cardio between 2 to 3 weeks ECHO Showed * Small, underfilled LV chamber size with mild concentric LVH. * Mildly reduced LV systolic function, EF 45-50%. * Moderate hypokinesis of the inferior/inferoseptal carnes, otherwise, hypderdynamic wall motion. * Grade I diastolic dysfunction. * The right ventricular cavity size is normal (basal dimension <4.2 cm in right ventricular apical 4-chamber view). * The right ventricular systolic function is mildly reduced. * Aortic valve sclerosis mild, without significant aortic valvular stenosis. * Mild left atrial enlargement. RON ON CKD STAGE 3 Creatine on admission 2.1, baseline 1.3 Creatine improve to 1.6 ---> 1.4---> 1.1 today S/P cardiac cath today, will need to try to prevent contrast-induced nephrotoxicity Nephrology consulted Continue IV hydration Renal U/S showed no renal calculi or hydronephrosis. Mild bilateral renal cortical thinning, right greater than left. Resolved VIT D Deff Will start on Vit D supplement HYPERTENSION Continue holding HCTZ due to elevated creatinine. Continue metoprolol, amlodipine, losartan. Resume HCTZ on discharge Continue monitor BMP. EPISTAXIS Compliant of dry nose Has been on heparin drip Resolved after applied pressure Will add nasal saline prn Will consider to use humidified oxygen Resolved COPD Change bronchodilator therapy to levalbuterol because of tachycardia. LEUKOCYTOSIS possible reactive WBC elevated on admission 17K. CTA chest showed no acute intrathoracic findings Afebrile, No sign of infection. WBC WNL now Monitor CBC ALCOHOL CONSUMPTION No sign of alcohol withdraw Alcohol withdrawal protocol ordered. Continue gabapentin. Lorazepam PRN per withdrawal protocol. Thiamine daily. DVT PROPHYLAXIS heparin drip d/c yesterday CODE STATUS FULL CODE Total time spent on discharge = This includes examination of the patient, discharge planning, medication reconciliation, and communication with other providers. Discharge Instructions Discharge Instructions Date of Service Apr 08, 2017. Admission Reason for Admission: Chest Pain Discharge Discharge Diagnosis / Problem: CHEST PAIN/NON-ST ELEVATION MYOCARDIAL INFARCTION/RON ON CKD STAGE 3 Discharge Goals Goal(s): Decrease discomfort, Improve function, Improve disease control Activity Recommendations Activity Limitations: resume your previous activity (as tolerated ) . Instructions / Follow-Up Instructions / Follow-Up Follow up with your primary care provider Dr. Simmons on 04/12 @ 10:45 AM Follow up with Cardiology Dr. Hoover on Apr 26 @ 10:45 AM Continue aspirin and Brilinta for at least 1 year Notify your physician if you develop any abnormal bleeding Recommend Cardiac rehab (your physician or your decay control operator will arrange for that) Check BMP in 1 week Counseling on alcohol cessation Current Hospital Diet Patient's current hospital diet: AHA Diet (Heart Healthy) Discharge Diet Recommended Diet: AHA Diet (Heart Healthy) Pending Studies Studies pending at discharge: no Laboratory Results Lipid Panel Test 04/06/17 06:08 Range/Units Triglycerides Level 151 H 0-150 mg/dl Cholesterol Level 139 0-200 mg/dl HDL Cholesterol 55 mg/dl Cholesterol/HDL Ratio 2.5 LDL Cholesterol, Calculated 54 mg/dl Medical Emergencies . Who to Call and When: Medical Emergencies: If at any time you feel your situation is an emergency, please call 911 immediately. . Non-Emergent Contact Non-Emergency issues call your: Primary Care Provider, Breakfast Cook Call Non-Emergent contact if: you have any medication questions . . "Provider Documentation" section prepared by Pancho Carrillo. . VTE Core Measure Inpt VTE Proph given/why not?: Other Anticoagulation (IV heparin) Additional Copies To Earl Simmons M.D.
== END 2017-04-08 12:21 | disposition home or self-care (01) | DRG 247 ==
LOC: C.EDB 23:04 → C.2T 04-06 00:26 → ENRESERV 04-06 00:44
PROVIDERS: ADMIT Hospitalist; ATTEND Internal Medicine
PROC: B211YZZ Fluoroscopy of Multiple Coronary Arteries using Other Contrast (ICD-10-PCS; 2017-04-07)
PROC: 4A023N7 Measurement of Cardiac Sampling and Pressure, Left Heart, Percutaneous Approach (ICD-10-PCS; 2017-04-07)
PROC: 027035Z Dilation of Coronary Artery, One Artery with Two Drug-eluting Intraluminal Devices, Percutaneous Approach (ICD-10-PCS; principal; 2017-04-07 12:08)
DX: I21.4 Non-ST elevation (NSTEMI) myocardial infarction (principal); N17.9 Acute kidney failure, unspecified; R04.0 Epistaxis; E55.9 Vitamin D deficiency, unspecified; N18.3 Chronic kidney disease, stage 3 (moderate); I11.9 Hypertensive heart disease without heart failure; I25.10 Atherosclerotic heart disease of native coronary artery without angina pectoris; J44.9 Chronic obstructive pulmonary disease, unspecified; E78.5 Hyperlipidemia, unspecified; Z79.899 Other long term (current) drug therapy; Z79.82 Long term (current) use of aspirin; Z95.1 Presence of aortocoronary bypass graft; Z72.89 Other problems related to lifestyle; Z87.891 Personal history of nicotine dependence; Z82.49 Family history of ischemic heart disease and other diseases of the circulatory system

== ENCOUNTER 2017-04-28 18:59 | Inpatient (IN) | payer OTHER ==
[~2017-04-28] VITALS: Ht 165.1 cm; Wt 81.2 kg
[~2017-04-28 18:59] MED LIST changes: -ACET-1311 PO; -ALBUAER19 INH; -ASPEC81 PO; +ASPI81TA28 PO; +BRL90 PO; +CLR10 PO; +ERGO500011 PO; +FLUT0.15 NAE; -FLV1 PO; +FOLI1TAB8 PO; +GABA-113 PO; +MONT1TAB3 PO; -RXC5 PO; +VNTHFA/IN INH
[2017-04-28] MEDS ORDERED: ASPIRIN 81 MG CHEW PO STA (19:53)
--- NOTE | 2017-04-28 19:58 | EMERGENCY ROOM VISIT NOTE ---
History Report prepared by Colten: Earl Mckeon Under the Supervision of: Dr. Evelyn Cornejo M.D. First contact with patient: 19:18 Chief Complaint: OTHER COMPLAINT Stated Complaint: TIGHTNESS IN THROAT- CARDIOLOGISPHYSICIAN REFERRED History of Present Illness The patient is a 67 year old male who presents to the Emergency Room with complaints of intermittent tightness in his throat and chest beginning this morning. The patient states he was her on April 05 for an WI, was stabilized on the , had stents placed on the , and discharged on the . He reports he woke up with throat tightness on the and was evaluated by his senior quality control inspector. The patient notes his medication was changed because throat tightness was a side effect. He states he was told if he developed throat tightness while on the new medication he needed to go the ED. The patient reports he woke up earlier this morning with throat tightness. He notes he tried sitting up and lying on his side. The patient states sitting up helped , but lying on his side intensified his tightness. He reports it eventually went away, and he fell back to sleep. He reports he took a shower in the evening , and his tightness developed again. The patient notes he felt the same tightness with his previous WI, but this time it was not as intense. He states he took an 81mg aspirin this morning. The patient reports he did not take nitroglycerin because his symptoms were not that intense. He notes he currently does not have discomfort. The patient states he has a history of COPD, and he quit smoking 5.5 years ago. He denies shortness of breath. Source of History: patient Onset: this morning Position: throat, chest Quality: other (tightness) Timing: intermittent Modifying Factors (Worsening): other (lying on his side) Modifying Factors (Relieving): other (sitting up) Associated Symptoms: No SOB Review of Systems See HPI for pertinent positives & negatives. A total of 10 systems reviewed and were otherwise negative. Past Medical & Surgical Medical Problems: (1) Asbestos pneumoconiosis (2) CAD (coronary artery disease) (3) Carotid stenosis, non-symptomatic (4) Chest pain (5) COPD (chronic obstructive pulmonary disease) (6) History of colonic polyps (7) Hyperlipidemia (8) Hypertension (9) Lumbar stenosis with neurogenic claudication (10) Throat discomfort Surgical Problems: (1) S/P CABG x 2 (2) S/P lumbar spinal fusion (3) Status post double vessel coronary artery bypass Family History FH: CAD (coronary artery disease) FATHER MOTHER Hypertension FATHER MOTHER Social History Smoking Status: Unknown if Ever Smoked Marital Status: Housing Status: lives with family Occupation Status: retired Current/Historical Medications Scheduled Amlodipine Besylate (Norvasc), 10 MG PO QAM Aspirin (Aspirin Ec), 81 MG PO DAILY Atorvastatin (Lipitor), 80 MG PO QPM Clopidogrel (Plavix), 75 MG PO QAM Ergocalciferol (Vitamin D 25359 Unit), 1 CAP PO WK Fluticasone Propionate (Nasal) (Flonase Allergy Relief), 2 SPRY KYLEE DAILY Folic Acid (Folvite), 1 MG PO DAILY Hctz/Losartan (Hyzaar 25MG/100MG), 1 TAB PO QAM Isosorbide Mononitrate (Isosorbide Mononitrate ER), 30 MG PO QAM Loratadine (Claritin), 10 MG PO DAILY Metoprolol Tartrate (Lopressor), 75 MG PO QAM Metoprolol Tartrate (Lopressor) (Lopressor), 50 MG PO PM Pantoprazole (Pantoprazole Sodium), 40 MG PO QAM Tiotropium [place] (Spiriva Handihaler), 1 CAP INH QAM Scheduled PRN Albuterol Hfa (Ventolin Hfa), 2 PUFFS INH Q4 PRN for SOB/Wheezing Nitroglycerin (Nitrostat), 0.4 MG UT UD PRN for Chest Pain Polyethylene Glycol-Propylene (Systane Ultra), 1-2 DROPS OP UD PRN for dry eyes Allergies Coded Allergies: No Known Allergies (Unverified , 04/28/17) Physical Exam Vital Signs Date Time Temp Pulse Resp B/P (MAP) Pulse Ox O2 Delivery O2 Flow Rate FiO2 04/28/17 21:24 77 20 154/80 95 Room Air 04/28/17 20:28 85 20 108/67 93 Room Air 04/28/17 20:23 87 20 159/77 97 Room Air 04/28/17 19:36 83 04/28/17 19:12 36.8 83 18 137/80 97 Room Air Physical Exam Vital signs reviewed. General: Well-appearing 67 year old male, in no significant distress. HEENT: No scleral icterus, PERRLA, neck supple. Atraumatic. Cardiovascular: Regular rate and rhythm, no extra sounds. Pulmonary: Clear to auscultation bilaterally, normal work of breathing. Abdomen: Soft, nontender, nondistended, positive bowel sounds. Musculoskeletal: Atraumatic, no peripheral edema. Neurologic: Patient awake alert and oriented x 3. Skin: Warm, dry, no rash Medical Decision & Procedures ER Provider Diagnostic Interpretation: X-ray results as stated below per interpretation by me and the radiologist: CHEST ONE VIEW PORTABLE CLINICAL HISTORY: chest pain dyspnea COMPARISON STUDY: 04/05/2017 FINDINGS: Prior median sternotomy. Calcified pleural plaques bilaterally. Normal developing parenchymal infiltrate left base. Improving interstitial changes medial right base. IMPRESSION: Probable early parenchymal infiltrate left base. Improving chronic interstitial changes right base. The above report was generated using voice recognition software. It may contain grammatical, syntax or spelling errors. Electronically signed by: Pete Marie M.D. 04/28/2017 8:22 PM Dictated Date/Time: 04/28/2017 8:21 PM Laboratory Results Test 04/28/17 19:35 04/28/17 20:04 Direct Bilirubin < 0.1 mg/dl (0-0.2) Total Creatine Kinase 60 U/L (39-308) Creatine Kinase MB < 0.5 ng/ml (0.5-3.6) Creatine Kinase MB Ratio (0-3.0) Bedside Troponin I < 0.030 ng/ml (0-0.045) Laboratory results per my review. Medications Administered Medications (Trade) Dose Ordered Sig/Dipti Route Start Time Stop Time Status Last Admin Dose Admin Aspirin (Aspirin Chew) 243 mg NOW STAT PO 04/28/17 19:53 04/28/17 19:56 DC 04/28/17 20:06 243 MG Nitroglycerin (Nitrostat Tab) 0.4 mg Q5M PRN SL 04/28/17 20:00 04/28/17 22:39 DC 04/28/17 20:22 0.4 MG Potassium Chloride (Klor-Con M10) 40 meq NOW STAT PO 04/28/17 22:04 04/28/17 22:13 DC 04/28/17 22:38 40 MEQ ECG Indication: chest pain Rate (beats per minute): 81 Rhythm: normal sinus Findings: no acute ischemic change, no ectopy Change: Second EKG in the same visit: Normal sinus 82, no ectopy, no acute ischemic change ED Course 1945: Past medical records reviewed. The patient was evaluated in room A11B. A complete history and physical examination was performed. 1952: Ordered Aspirin 243mg PO 1999: Ordered Nitroglycerin 0.4mg SL 2038: I received a call from the nurse. The patient had a recurrent episode of tightness. The EKG will be repeated. The patient states his discomfort completely resolved with nitroglycerin. 2115: I discussed the patient's case with Tish Estrada [facility]ist. The patient will be evaluated for further management and care. Medical Decision DDx: Acute coronary syndrome, pulmonary embolus, aortic dissection, musculoskeletal pain, pneumonia, pleural effusion, pneumothorax This pt was evaluated and appeared to be in no distress. IV access was obtained and lab work was drawn. Pt was placed on the manager cardiac cath. EKG reveals no acute changes. Trop is negative. Pt was painfree after NTG. There is concern for ACS, maybe stent thrombosis. Pt was d/w the hospitalist service for further management. Medication Reconcilliation Current Medication List: was personally reviewed by me Blood Pressure Screening Patient's blood pressure: Elevated blood pressure Monitored by hospitalist. Consults Time Called: 2109 [facility]ing [facility] Returned Call: 2115 I discussed the patient's [facility] The patient will be evaluated for further management and care. Impression Primary Impression: Chest pain Additional Impression: Status post coronary artery stent placement Scribe Attestation The scribe's documentation has been prepared under my direction and personally reviewed by me in its entirety. I confirm that the note above accurately reflects all work, treatment, procedures, and medical decision making performed by me. Departure Information Dispostion Being Evaluated By Hospitalist Prescriptions Pantoprazole (Pantoprazole Sodium) 40 Mg Tab 40 MG PO QAM for 30 Days, #30 TAB 3 Refills Prov: Nazanin Clarke M.D. 04/30/17 Isosorbide Mononitrate (Isosorbide Mononitrate ER) 30 Mg Tabcr 30 MG PO QAM for 30 Days, #30 TABS 3 Refills Prov: Nazanin Clarke M.D. 04/30/17 Metoprolol Tartrate (Lopressor) (Lopressor) 50 Mg Tab 50 MG PO PM for 30 Days, #30 TAB 3 Refills Prov: Nazanin Clarke M.D. 04/30/17 Metoprolol Tartrate (LOPRESSOR) 25 Mg Tab 75 MG PO QAM for 30 Days, #90 TAB 3 Refills Prov: Nazanin Clarke M.D. 04/30/17 Referrals Earl Simmons M.D. (PCP) Patient Instructions My [facility] Problem Qualifiers
[2017-04-28] MEDS ORDERED: NITROGLYCERIN 0.4 MG SL PER TAB CHARGE SL PRN (20:00)
[2017-04-28 20:06] LABS: BASO % 0.8 %; BASO ABS # 0.08 K/uL (0-0.2); EOS % 3.4 %; EOS ABS # 0.35 K/uL (0-0.5); IG# 0.04 K/uL (0.00-0.02); LYMPH % 30.2 %; LYMPH ABS # 3.09 K/uL (1.2-3.4); MEAN CELL VOLUME 94.6 fL (80-100); MEAN CORPUSCULAR HEMOGLOBIN 33.1 pg (25-34); MEAN PLATELET VOLUME 9.7 fL (7.4-10.4); MONO % 10.5 %; MONO ABS # 1.07 K/uL (0.11-0.59); NEUT % 54.7 %; PLATELET COUNT 262 K/uL (130-400); RED CELL DISTRIBUTION WIDTH CV 13.3 % (11.5-14.5); RED CELL DISTRIBUTION WIDTH SD 46.1 fL (36.4-46.3); WHITE BLOOD COUNT 10.23 K/uL (4.8-10.8)
[2017-04-28 20:19] LABS: ALBUMIN 3.8 gm/dl (3.4-5.0); ALT/SGPT 28 U/L (12-78); BLOOD UREA NITROGEN 27 mg/dl (7-18); CARBON DIOXIDE 26 mmol/L (21-32); CREATININE 1.81 mg/dl (0.60-1.40); GLUCOSE 100 mg/dl (70-99); POTASSIUM 3.5 mmol/L (3.5-5.1); SODIUM 139 mmol/L (136-145)
[2017-04-28 20:24] LABS: ALKALINE PHOSPHATASE 94 U/L (45-117); AST/SGOT 15 U/L (15-37); CKMB < 0.5 ng/ml (0.5-3.6); TOTAL PROTEIN 7.8 gm/dl (6.4-8.2)
--- NOTE | 2017-04-28 20:24 | DIAGNOSTIC IMAGING REPORT ---
CHEST ONE VIEW PORTABLE CLINICAL HISTORY: chest pain dyspnea COMPARISON STUDY: 04/05/2017 FINDINGS: Prior median sternotomy. Calcified pleural plaques bilaterally. Normal developing parenchymal infiltrate left base. Improving interstitial changes medial right base. IMPRESSION: Probable early parenchymal infiltrate left base. Improving chronic interstitial changes right base. The above report was generated using voice recognition software. It may contain grammatical, syntax or spelling errors. Electronically signed by: Pete Marie M.D. 04/28/2017 8:22 PM Dictated Date/Time: 04/28/2017 8:21 PM
[2017-04-28] MEDS ORDERED: CLOP1TAB15 PO (20:53)
[2017-04-28] MEDS ORDERED: POTASSIUM CHLORIDE 10 MEQ TABCR PO STA (22:04)
--- NOTE | 2017-04-28 22:25 | History and Physical ---
History & Physical Date & Time of Service: Apr 28, 2017 at 22:21 Chief Complaint: Tightness In Throat- Cardiologisphysician Referred Primary Care Physician: Earl Simmons M.D. History of Present Illness Source: patient Chief complaint throat tightness Pertinent Past medical history / History of present illness non ST segment elevation myocardial infarction in March 2017 (symptoms preceding the cardiac cath was tightness in his throat that waxed and waned and ultimately came back to a more severe degree with associated discomfort radiating down his left arm) patient underwent PCI with 2 overlapping drug-eluting stents extending from the ostium the right coronary artery to the mid right coronary artery performed on 04/07/2017. patient has been following beam machine operator Dr. Hoover, last seen on 04/26/17, and reported to him since discharge from the hospital he has been having occasional episodes of dyspnea or throat tightness and so Dr. Hoover changed patient's medication from Brilinta to Plavix because he suspected that perhaps the symptoms could have bee side effect from Brilinta had recommended pharmacologic nuclear stress test in 1 week from the 04/26/17 office visit Patient presents to the ED on 04/27/16 after symptoms of throat discomfort around 5 AM on 04/27/16 and returned on evening time, denies dyspnea, is breathing on room air, discomfort relieved after nitro sublingual in the ED, also given 243 mg of aspirin in the ED. Patient denies chest or back pain or edema. Past Medical/Surgical History Medical Problems: (1) Asbestos pneumoconiosis Status: Chronic (2) CAD (coronary artery disease) Permanent Comment: S/p CABG x 2 in 2003 Cardiac cath 2009 showed patent ARREDONDO to LAD, 70% stenosis of the LAD distal to the touchdown of the ARREDONDO graft, occluded vein graft to the RPDA Nuclear stress test 10/2013- negative for ischemia, normal LVEF Status: Chronic (3) Carotid stenosis, non-symptomatic Status: Chronic (4) COPD (chronic obstructive pulmonary disease) Status: Chronic (5) History of colonic polyps Status: Chronic (6) Hyperlipidemia Status: Chronic (7) Hypertension Status: Chronic Surgical Problems: (1) S/P CABG x 2 Status: Chronic (2) S/P lumbar spinal fusion Status: Chronic Family History FH: CAD (coronary artery disease) FATHER MOTHER Hypertension FATHER MOTHER Social History Smoking Status: Unknown if Ever Smoked Marital Status: Housing status: lives with family Occupational Status: retired Immunizations History of Influenza Vaccine: Yes History of Tetanus Vaccine?: Yes History of Pneumococcal: Yes History of Hepatitis B Vaccine: No Allergies Coded Allergies: No Known Allergies (Unverified , 04/28/17) Home Medications Scheduled Amlodipine Besylate (Norvasc), 10 MG PO QAM Aspirin (Aspirin Ec), 81 MG PO DAILY Atorvastatin (Lipitor), 80 MG PO QPM Clopidogrel (Plavix), 75 MG PO QAM Ergocalciferol (Vitamin D 62276 Unit), 1 CAP PO WK Fluticasone Propionate (Nasal) (Flonase Allergy Relief), 2 SPRY KYLEE DAILY Folic Acid (Folvite), 1 MG PO DAILY Hctz/Losartan (Hyzaar 25MG/100MG), 1 TAB PO QAM Loratadine (Claritin), 10 MG PO DAILY Metoprolol Tartrate (Lopressor) (Lopressor), 50 MG PO BID Tiotropium [place] (Spiriva Handihaler), 1 CAP INH QAM Scheduled PRN Albuterol Hfa (Ventolin Hfa), 2 PUFFS INH Q4 PRN for SOB/Wheezing Nitroglycerin (Nitrostat), 0.4 MG UT UD PRN for Chest Pain Polyethylene Glycol-Propylene (Systane Ultra), 1-2 DROPS OP UD PRN for dry eyes Review of Systems Constitutional: No fever Eyes: No eye pain ENT: + problem reported (throat tightness in the morning time and evening time) , No hearing loss, No unusual epistaxis Respiratory: No cough, No wheezing, No shortness of breath Cardiovascular: No chest pain, No edema, No palpitations Abdomen: No pain, No nausea, No vomiting Musculoskeletal: No joint pain, No muscle pain, No swelling, No calf pain Genitourinary - Male: No hematuria, No dysuria Neurologic: No paralysis, No numbness/tingling Endocrine: No fatigue Hematologic / Lymphatic: No abnormal bleeding/bruising Integumentary: No rash, No itch Physical Exam Vital Signs Date Time Temp Pulse Resp B/P (MAP) Pulse Ox O2 Delivery O2 Flow Rate FiO2 04/28/17 21:24 77 20 154/80 95 Room Air 04/28/17 20:28 85 20 108/67 93 Room Air 04/28/17 20:23 87 20 159/77 97 Room Air 04/28/17 19:36 83 04/28/17 19:12 36.8 83 18 137/80 97 Room Air General Appearance: no apparent distress Head: normocephalic, atraumatic Eyes: normal inspection, EOMI, sclerae normal ENT: normal ENT inspection, hearing grossly normal, pharynx normal Neck: supple, no JVD, trachea midline Respiratory/Chest: chest non-tender, lungs clear, normal breath sounds, no respiratory distress, no accessory muscle use Cardiovascular: regular rate, rhythm, no edema, no JVD, normal peripheral pulses Abdomen/GI: normal bowel sounds, non tender, soft, no organomegaly, no pulsatile mass Back: normal inspection, no muscle spasm, normal range of motion Extremities/Musculoskelatal: normal inspection, no calf tenderness, normal capillary refill, no pedal edema, normal range of motion, non-tender Neurologic/Psych: no motor/sensory deficits, alert, normal mood/affect, oriented x 3 Skin: normal color, warm/dry, no rash Diagnostics Laboratory Results Results Past 24 Hours Test 04/28/17 19:35 04/28/17 20:04 Range/Units White Blood Count 10.23 4.8-10.8 K/uL Red Blood Count 4.23 4.7-6.1 M/uL Hemoglobin 14.0 14.0-18.0 g/dL Hematocrit 40.0 42-52 % Mean Corpuscular Volume 94.6 80-100 fL Mean Corpuscular Hemoglobin 33.1 25-34 pg Mean Corpuscular Hemoglobin Concent 35.0 32-36 g/dl Platelet Count 262 130-400 K/uL Mean Platelet Volume 9.7 7.4-10.4 fL Neutrophils (%) (Auto) 54.7 % Lymphocytes (%) (Auto) 30.2 % Monocytes (%) (Auto) 10.5 % Eosinophils (%) (Auto) 3.4 % Basophils (%) (Auto) 0.8 % Neutrophils # (Auto) 5.60 1.4-6.5 K/uL Lymphocytes # (Auto) 3.09 1.2-3.4 K/uL Monocytes # (Auto) 1.07 0.11-0.59 K/uL Eosinophils # (Auto) 0.35 0-0.5 K/uL Basophils # (Auto) 0.08 0-0.2 K/uL RDW Standard Deviation 46.1 36.4-46.3 fL RDW Coefficient of Variation 13.3 11.5-14.5 % Immature Granulocyte % (Auto) 0.4 % Immature Granulocyte # (Auto) 0.04 0.00-0.02 K/uL Sodium Level 139 136-145 mmol/L Potassium Level 3.5 3.5-5.1 mmol/L Chloride Level 104 98-107 mmol/L Carbon Dioxide Level 26 21-32 mmol/L Anion Gap 9.0 3-11 mmol/L Blood Urea Nitrogen 27 7-18 mg/dl Creatinine 1.81 0.60-1.40 mg/dl Est Creatinine Clear Calc Drug Dose 39.7 ml/min Estimated GFR () 44.5 Estimated GFR (Non- 38.4 BUN/Creatinine Ratio 14.8 10-20 Random Glucose 100 70-99 mg/dl Calcium Level 9.0 8.5-10.1 mg/dl Magnesium Level 1.9 1.8-2.4 mg/dl Total Bilirubin 0.4 0.2-1 mg/dl Direct Bilirubin < 0.1 0-0.2 mg/dl Aspartate Amino Transf (AST/SGOT) 15 15-37 U/L Alanine Aminotransferase (ALT/SGPT) 28 12-78 U/L Alkaline Phosphatase 94 45-117 U/L Total Creatine Kinase 60 39-308 U/L Creatine Kinase MB < 0.5 0.5-3.6 ng/ml Creatine Kinase MB Ratio 0-3.0 Total Protein 7.8 6.4-8.2 gm/dl Albumin 3.8 3.4-5.0 gm/dl Bedside Troponin I < 0.030 0-0.045 ng/ml Impression Assessment and Plan Cardiac -non ST segment elevation myocardial infarction in March 2017 (symptoms preceding the cardiac cath was tightness in his throat that waxed and waned and ultimately came back to a more severe degree with associated discomfort radiating down his left arm) -patient underwent PCI with 2 overlapping drug-eluting stents extending from the ostium the right coronary artery to the mid right coronary artery performed on 04/07/2017. -patient has been following beam machine operator Dr. Hoover, last seen on 04/26/17, and reported to him since discharge from the hospital he has been having occasional episodes of dyspnea or throat tightness and so Dr. Hoover changed patient's medication from Brilinta to Plavix because he suspected that perhaps the symptoms could have bee side effect from Brilinta - had recommended pharmacologic nuclear stress test in 1 week from the 04/26/17 office visit -Patient presents to the ED on 04/27/16 after symptoms of throat discomfort around 5 AM on 04/27/16 and returned on evening time, denies dyspnea, is breathing on room air, discomfort relieved after nitro sublingual in the ED, also given 243 mg of aspirin in the ED -troponin negative x 1, trend troponin -cardiology consult requested for evaluation of whether this acute coronary syndrome vs angina vs medication side effect -continue aspirin, plavix, lopressor, HCTZ-Losartan for antiplatelet therapy, heart rate control, blood pressure control -NPO after midnight if stress test is indicated (patient was scheduled for outpatient stress trest) Respiratory -History of interstitial lung disease, COPD -CXR: Prior median sternotomy. Calcified pleural plaques bilaterally. Normal developing parenchymal infiltrate left base. Improving interstitial changes medial right base. IMPRESSION: Probable early parenchymal infiltrate left base. Improving chronic interstitial changes right base. -No respiratory complaints, No wheezing on exam, continue with home dose inhalers tiotropium and albuterol -Benadryl prn in case of allergic reaction -if in emergency, will give Epinephrine, patient also reports that medical team can intubate if respiratory failure Renal -CKD stage III -Creatinine 1.81 on admission Electrolytes Serum potassium 3.5, ordered 40 meq of oral potassium DVT ppx: heparin subc q12 hours Disposition: Observation Telemetry Code Status: Full code [id number] Level of Care Telemetry Resuscitation Status FULL RESUSCITATION VTE Prophylaxis VTE Risk Assessment Done? Y/N: Yes Risk Level: Moderate
[2017-04-28] MEDS ORDERED: ALBUTEROL HFA 8 GM INHALER INH PRN (22:30)
[2017-04-28] MEDS ORDERED: NITROGLYCERIN 0.4 MG SL PER TAB CHARGE UT PRN (22:30)
[2017-04-28] MEDS ORDERED: DiphenhydrAMINE INJ 12.5 MG in SYRINGE 0 ML IV PRN (23:00)
[2017-04-28] MEDS ORDERED: DiphenhydrAMINE HCL 50 MG/ML VIAL IV PRN (23:30)
[2017-04-28] MEDS ORDERED: IV FLUIDS COMPLETED PRN (23:30)
[2017-04-29] VITALS (15 sets, daily range): BP systolic 115–160; BP diastolic 57–93; PULSE 72–106; TEMP 36.5–37; O2SAT 95–100; Ht 165.1 cm; Wt 81.2 kg
[2017-04-29 02:14] LABS: BASO % 0.8 %; BASO ABS # 0.07 K/uL (0-0.2); EOS % 4.6 %; EOS ABS # 0.39 K/uL (0-0.5); HEMATOCRIT 36.3 % (42-52); HEMOGLOBIN 12.3 g/dL (14.0-18.0); IG# 0.03 K/uL (0.00-0.02); LYMPH ABS # 3.05 K/uL (1.2-3.4); MEAN CELL VOLUME 94.8 fL (80-100); MEAN CORPUSCULAR HEMOGLOBIN 32.1 pg (25-34); MEAN CORPUSCULAR HGB CONC 33.9 g/dl (32-36); MEAN PLATELET VOLUME 9.5 fL (7.4-10.4); MONO % 12.3 %; MONO ABS # 1.04 K/uL (0.11-0.59); NEUT % 45.9 %; NEUT ABS # 3.89 K/uL (1.4-6.5); PLATELET COUNT 213 K/uL (130-400); RED CELL DISTRIBUTION WIDTH CV 13.4 % (11.5-14.5); RED CELL DISTRIBUTION WIDTH SD 46.5 fL (36.4-46.3); WHITE BLOOD COUNT 8.47 K/uL (4.8-10.8)
[2017-04-29 02:38] LABS: ALBUMIN 3.2 gm/dl (3.4-5.0); ALT/SGPT 25 U/L (12-78); AST/SGOT 11 U/L (15-37); BLOOD UREA NITROGEN 29 mg/dl (7-18); CALCIUM 8.4 mg/dl (8.5-10.1); CARBON DIOXIDE 29 mmol/L (21-32); CREATININE 1.56 mg/dl (0.60-1.40); GLUCOSE 113 mg/dl (70-99); POTASSIUM 3.3 mmol/L (3.5-5.1); SODIUM 139 mmol/L (136-145)
[2017-04-29 02:43] LABS: ALKALINE PHOSPHATASE 82 U/L (45-117); TOTAL PROTEIN 6.5 gm/dl (6.4-8.2)
[2017-04-29] MEDS: TIOTROPIUM BROMIDE 5 PUFF/90 MCG INH INH SCH (07:40)
[2017-04-29] MEDS: METOPROLOL TARTRATE 50 MG TAB PO SCH ×2 (07:41→20:41)
[2017-04-29] MEDS: CLOPIDOGREL BISULFATE 75 MG TAB PO SCH (07:41)
[2017-04-29] MEDS: LOSARTAN/HCTZ 50-12.5 EA TAB PO SCH (07:41)
[2017-04-29] MEDS: FLUTICASONE PROPIONATE NA SPR 16 GM BTL NAE SCH (07:41)
[2017-04-29] MEDS: ASPIRIN 81 MG ECTAB PO SCH (07:42)
[2017-04-29] MEDS: AMLODIPINE BESYLATE 5 MG TAB PO SCH (07:42)
[2017-04-29] MEDS: LORATADINE 10 MG TAB PO SCH (07:42)
[2017-04-29] MEDS: HEPARIN SOD 5000 UNIT/0.5 ML CARP SQ SCH ×2 (08:02→20:46)
[2017-04-29 08:13] LABS: BLOOD UREA NITROGEN 27 mg/dl (7-18); CALCIUM 8.6 mg/dl (8.5-10.1); CARBON DIOXIDE 26 mmol/L (21-32); CREATININE 1.32 mg/dl (0.60-1.40); GLUCOSE 115 mg/dl (70-99); POTASSIUM 3.7 mmol/L (3.5-5.1); SODIUM 140 mmol/L (136-145)
[2017-04-29] MEDS ORDERED: PANTOprazole SOD 40 MG TAB PO STA (10:40)
--- NOTE | 2017-04-29 11:50 | CARDIOLOGY CONSULTATION ---
DATE OF CONSULTATION: 04/29/2017 REFERRING PHYSICIAN: Dr. Clarke and Dr. Danielson. PRIMARY JOURNEYMAN POWERHOUSE OPERATOR: Dr. Ramirez Hoover. PRIMARY CARE PHYSICIAN: Dr. Earl Simmons. HISTORY OF PRESENT ILLNESS: The patient is a 67-year-old male with history of known coronary artery disease having undergone prior coronary artery bypass grafting in 2003, receiving a ARREDONDO graft to the LAD and a saphenous vein graft to the left anterior descending. The patient had cardiac catheterization in 2009 demonstrating occluded saphenous vein graft to the right coronary artery. He presented with chest pain and throat tightness on 04/06/2017 with evidence of elevated troponins. Cardiac catheterization was performed, which demonstrated patent left internal mammary artery graft to LAD with distal vessel disease. There is a high-grade lesion of 95% and mid right coronary artery, which underwent successful drug-eluting stent. There is moderate diffuse vascular disease with 50% in the circumflex marginal and posterior descending artery by my personal review. He has been managed medically, but recently began experiencing sensation of throat tightness generally while lying down and not specifically exertionally related. There are concerns of worsening dyspnea and patient's Brilinta was switched to Plavix. He represented with symptoms of throat tightness last night. At rest, he notes the symptoms were brought on by movement in bed and rolling over in bed and were similarly exacerbated this morning. He notes no fevers, chills or productive cough. Does carry an underlying history of obstructive lung disease, asbestosis and chronic renal insufficiency, hypertension and hyperlipidemia on therapies. He notes no bleeding difficulties. Notes no melena or hematochezia. Does have some occasional reflux. Drinks 3-5 alcoholic beverages per day. Thus, attempting to reduce slightly since hospitalization. He is moderately active about his home. ALLERGIES: None. MEDICATIONS: Prior to hospitalization were albuterol inhaler, amlodipine 10 mg per day, aspirin 81 mg per day, atorvastatin 80 mg q.p.m., clopidogrel 75 mg p.o. daily, vitamin D 50,000 units weekly, Flonase, folic acid, losartan/hydrochlorothiazide 100/25 every day, Claritin daily 10 mg, Lopressor 50 mg twice per day, Spiriva inhaler q.a.m. PAST MEDICAL HISTORY: Notable as described in HPI. In addition, the patient carries an underlying history of asbestosis, chronic colon polyps, carotid stenosis asymptomatic, chronic back pain. PAST SURGICAL HISTORY: Notable for coronary artery bypass grafting in 2003, prior lumbar spinal fusion x2 with persistent back pain. FAMILY HISTORY: Positive for heart disease. SOCIAL HISTORY: The patient is a prior smoker, discontinued. He drinks approximately 3 beers per day and 2 shots of alcohol, although has minimized beer use in the last month's time. Uses no significant [id number] medications. PHYSICAL EXAMINATION: GENERAL: The patient is an age-appropriate male in no acute distress. VITAL SIGNS: Heart rate is 60, blood pressure is 125/77 this morning that was elevated on waking at 160/83. HEENT: Normocephalic and atraumatic. Nares without discharge. Throat was clear. NECK: Supple without thyromegaly or lymphadenopathy. There are no carotid bruits audible. LUNGS: Reveal diminished breath sounds, but are predominantly clear. CARDIOVASCULAR: Regular with normal S1, S2. There is no S3 or S4 gallop. PMI is nondisplaced. ABDOMEN: Soft, nontender. EXTREMITIES: Without cyanosis or clubbing. There is no peripheral edema. DIAGNOSTIC DATA: EKGs since admission demonstrate normal tracings on 2 occasions. Troponins have been negative since admission. Chest x-ray revealed possible early left infiltrate and chronic interstitial changes. LABORATORY STUDIES: White cell count is 8.4, hemoglobin is 12.3, hematocrit is 36.3, platelet count is 213. This morning, BUN is 27 and creatinine is 1.3 down from admission of 27 and 1.8. IMPRESSION: A 67-year-old male with known coronary artery disease having undergone remote coronary artery bypass grafting and subsequent recent coronary artery intervention after non-ST segment elevation myocardial infarction in March 2017 receiving drug-eluting stents to the mid right coronary artery with moderate diffuse coronary atherosclerosis as described. The patient presents now with symptoms of throat tightness and fullness. Symptoms were not specifically exertionally related, but notes generally in the evening when lying down with movement in bed, though it has occurred at rest, sitting upright. He was switched recently from Brilinta to Plavix as it was felt this may be exacerbating underlying pulmonary issues, symptomatic side effect of Brilinta. He represented with symptoms of throat tightness though without evidence of myocardial ischemia by enzyme or EKG finding. Discussed options of management. He had originally been scheduled for a Lexiscan study on 05/06/2017. We will plan on doing a dobutamine stress echocardiography today as risk stratification, and in the interim, the patient will be continued on all medications. In addition, Protonix will be added to the regimen with dose administer this morning.
[2017-04-29] MEDS ORDERED: ATROPINE SULFATE 0.1 MG/ML 5ML SYR ONE (11:56)
[2017-04-29] MEDS ORDERED: DOBUTamine HCL 12.5 MG/ML 20 ML VIAL ONE (11:56)
[2017-04-29] MEDS ORDERED: METOPROLOL TARTRATE 1 MG/ML VIAL ONE (11:56)
[2017-04-29] MEDS ORDERED: PERFLUTREN LIPID MICROSPHERE (DEFINITY) IV ONE (12:59)
[2017-04-29] MEDS ORDERED: MIDAZOLAM HCL 1 MG/ML 2ML VIAL ONE ×3 (13:29→15:51)
[2017-04-29] MEDS ORDERED: FENTANYL CITRATE INJ 50 MCG/1 ML 2 ML VIAL ONE ×2 (13:29→15:29)
--- NOTE | 2017-04-29 13:56 | Pre Sedation Assessment ---
Pre Sedation Assessment General Date of Sedation: Apr 29, 2017. Vital Signs Past 12 Hours Date Time Temp Pulse Resp B/P (MAP) Pulse Ox O2 Delivery O2 Flow Rate FiO2 04/29/17 12:00 Room Air 04/29/17 11:37 36.9 72 18 115/72 (86) 95 04/29/17 08:00 Room Air 04/29/17 07:34 36.7 85 18 160/83 (108) 97 04/29/17 04:33 36.6 85 20 125/77 (93) 95 Room Air 04/29/17 04:00 Room Air Pre-Sedation Airway Assessment Smoking Status: Former Smoker Hx of Sleep Apnea: No Thyro-mental Distance: < or =3 Finger Breadths Oral Cavity: WNL Mallampati Classification: Class II ASA Classification: Class IV NPO Status Date of Last Intake of Fluids: Apr 28, 2017 Date of Last Intake of Solids: Apr 28, 2017 Procedure Planning Contraindications for Sedation: None Current Medications Reviewed: Yes Notes The planned sedation has been discussed with the patient. Informed Consent was obtained. I have identified the patient, determined the appropriateness of sedation and have assessed the patient immediately prior to the procedure. All medicine(s) and interventions are by my order.
[2017-04-29] MEDS ORDERED: HEPARIN SOD (PORCINE) 1000 UNIT/ML 10 ML VIAL ONE (14:30)
[2017-04-29] MEDS ORDERED: NiCARDipine HCL INJ 2.5 MG/ML 10 ML AMP ONE (14:30)
[2017-04-29] MEDS ORDERED: NITROGLYCERIN/D5W 100MCG/ML 20ML SYR ONE (14:30)
--- NOTE | 2017-04-29 15:12 | Post Sedation Assessment ---
Post Sedation Assessment General Date of Sedation Apr 29, 2017. Vital Signs: Vital Signs Past 12 Hours Date Time Temp Pulse Resp B/P (MAP) Pulse Ox O2 Delivery O2 Flow Rate FiO2 04/29/17 12:00 Room Air 04/29/17 11:37 36.9 72 18 115/72 (86) 95 04/29/17 08:00 Room Air 04/29/17 07:34 36.7 85 18 160/83 (108) 97 04/29/17 04:33 36.6 85 20 125/77 (93) 95 Room Air 04/29/17 04:00 Room Air Post Procedure Recovery Score Activity: (2) Moves 4 extremities * Respiration: (2) Deep breath/cough Circulation: (2) +/-20% PreAnes Value Consciousness: (2) Fully Awake Oxygen Saturation: (2) > 92% On Room Air Post Anesthesia Score: 10 Discharge Sedation Level of Care: Fast Track Phase II Post Sedation Plan On clinical assessment, the patient appears to have tolerated the sedation without complications. Patient is recovering as anticipated. Patient will continue to be monitored by nursing and may be discharged when sedation discharge criteria are met per below protocol. Upon Completions of procedure and additional 15 minutes continue every 5 minute vital signs and the P.A.R. score; then discharge to a Phase I or Fast Track to Phase II per the following guidelines: * Discharge Patient to appropriate Phase II area if PAR is 8 or greater or return to pre- procedure baseline. The post - procedure orders will be as directed. * If PAR score is less than 8 or not return to pre-procedure baseline then patient will follow Phase I monitoring till PAR is reached for Phase II. The Phase I may be done in procedure room or may call to secure a Phase I area. * If naloxone or flumazenil are used for reversal, hold in Phase I for an additional 60 -120 minutes before discharge to Phase II. Please call the Sedation Physician to re-evaluate and complete post-note for discharge to Phase II area. Do NOT discharge from procedure sedation or Phase 1 until post- sedation evaluation note is complete by procedure /sedation MD Sedation Discharge Instructions to be given to the patient at discharge to home.
--- NOTE | 2017-04-29 15:24 | Cardiac Catheterization ---
Procedure Note Procedure Date Apr 29, 2017. Pre-Procedure Diagnosis Angina, Positive Stress Test AUC Score 7 Post-Procedure Diagnosis Severe CAD Procedure(s) Performed Coronary Angiography, Left Heart Cath, Ultrasound Guided Vascular Access Filter Tank Tender Helper Head Dr. [place] [employer] Ordnance Officer(s) [employer] SALES COMM[employer]ICATIONS MANAGER Estimated Blood Loss 5cc Medication(s) Fentanyl, Heparin, Nicardipine, Nitroglycerin, Versed, Lidocaine 1% Summary of Findings Ulcerated 90% proximal OM3 Patent mid RCA stent 50% proximal RPDA. Hemodynamics Rest Ao: 107/59/79 Final Ao: 122/55/80 LV: 123/-2/13 Recommendations PCI without planned CABG Specimens None Radiation Exposure (mGy) 1144 Contrast (mls) 65 Anesthesia Moderate sedation. Start 1359 End 1510 Procedural Complication(s) None Disposition Patient remained in slab grinder for PCI to OM3 [facility] Data Cardiac Status Clinical evaluation leading to the procedure CAD Presntation: Unstable angina Anginal Classification: CCS IV Heart Failure: No Cardiogenic Shock w/in 24Hrs: No Cardiac Arrest w/in 24Hrs: No Imaging studies past 6 months: Yes Stress studies past 6 months: Yes Stress Echocardiogram: Yes - Positive Stress Testing w/SPECT MPI: Risk/Extent of Ischemia (Intermediate) Coronary Anatomy Dominant: Right Left Main (% Stenosis): Distal (10%) LAD (% Stenosis): Ostial (100%) Circumflex (% Stenosis): Mid (30% distal nto origin of OM3) OM3 (% Stenosis): Proximal (90% ulcerated) L PL1 (% Stenosis): Ostial (Diffuse mild luminal irregularities 10-20%) RCA (% Stenosis): Proximal (20%), Mid (patent mid stent), Distal (long 30% tubular) R PDA (% Stenosis): Proximal (40%) R PL1 (% Stenosis): Ostial (small 1mm vessel with luminal irregularities 10-20% ) Diagnostic Status: Urgent Closure Device Percutaneous Entry Location: Radial (Unable to pass wire under ultrasound guidance via the left or right groin) Closure Device: Radial Band Intraprocedure Events Significant Dissection: No Perforation: No
--- NOTE | 2017-04-29 16:30 | Post Sedation Assessment ---
Post Sedation Assessment General Date of Sedation Apr 29, 2017. Vital Signs: Vital Signs Past 12 Hours Date Time Temp Pulse Resp B/P (MAP) Pulse Ox O2 Delivery O2 Flow Rate FiO2 04/29/17 16:12 96 16 149/99 (116) 96 Room Air 04/29/17 12:00 Room Air 04/29/17 11:37 36.9 72 18 115/72 (86) 95 04/29/17 08:00 Room Air 04/29/17 07:34 36.7 85 18 160/83 (108) 97 04/29/17 04:33 36.6 85 20 125/77 (93) 95 Room Air Post Procedure Recovery Score Activity: (2) Moves 4 extremities * Respiration: (2) Deep breath/cough Circulation: (2) +/-20% PreAnes Value Consciousness: (2) Fully Awake Oxygen Saturation: (2) > 92% On Room Air Post Anesthesia Score: 10 Discharge Sedation Level of Care: Fast Track Phase II Post Sedation Plan On clinical assessment, the patient appears to have tolerated the sedation without complications. Patient is recovering as anticipated. Patient will continue to be monitored by nursing and may be discharged when sedation discharge criteria are met per below protocol. Upon Completions of procedure and additional 15 minutes continue every 5 minute vital signs and the P.A.R. score; then discharge to a Phase I or Fast Track to Phase II per the following guidelines: * Discharge Patient to appropriate Phase II area if PAR is 8 or greater or return to pre- procedure baseline. The post - procedure orders will be as directed. * If PAR score is less than 8 or not return to pre-procedure baseline then patient will follow Phase I monitoring till PAR is reached for Phase II. The Phase I may be done in procedure room or may call to secure a Phase I area. * If naloxone or flumazenil are used for reversal, hold in Phase I for an additional 60 -120 minutes before discharge to Phase II. Please call the Sedation Physician to re-evaluate and complete post-note for discharge to Phase II area. Do NOT discharge from procedure sedation or Phase 1 until post- sedation evaluation note is complete by procedure /sedation MD Sedation Discharge Instructions to be given to the patient at discharge to home.
--- NOTE | 2017-04-29 16:40 | Cardiac Catheterization ---
Procedure Note Procedure Date Apr 29, 2017. Pre-Procedure Diagnosis Positive Stress Test AUC Score 7 Post-Procedure Diagnosis Severe CAD, Unsuccessful PCI Procedure(s) Performed PTCA Manager [employer] Financial Planning Analyst(s) Dylan Estimated Blood Loss 15 Medication(s) Fentanyl, Heparin, Nitroglycerin, Versed Summary of Findings Indication: Positive stress test; CCS class III angina Access: 6F right radial artery Catheters: EBU 3.5 guide Findings: For full details of patient's coronary angiography please see cath report dictated by Dr. Mesa. Briefly, patient found to have a 95+% stenosis at the ostium of OM2 -- PCI -- Antithrombotic therapy: Heparin Procedure: LM cannulated with EBU 3.5 guide BMW wire passed across lesion into distal vessel Unable to pass 2.0 and 1.5 balloons into OM2 Corsair placed into distal vessel and BMW exchanged for mailman wire Despite use of guideliner unable to pass 1.5 wire into distal OM2 Procedure aborted. TIMI3 flow post procedure,chest pain free. Arterial Closure: TR Band Summary: 1. Unsuccessful PCI of ostial OM2 Recommendations: To PCU for continued monitoring Continue aspirin, clopidogrel Maximize anti-anginal therapy If refractory pain consider repeat PCI at a tertiary center with possible atherectomy. Hemodynamics Rest Ao: -- Final Ao: -- LV: -- Recommendations Medical therapy and/or Counseling, PCI without planned CABG Specimens None Radiation Exposure (mGy) 4746 Contrast (mls) 130 Fluids (cc crystalloids) 150 Drains None Anesthesia Moderate Procedural Complication(s) None Disposition PCU ACC Data Cardiac Status Clinical evaluation leading to the procedure CAD Presntation: Positive Stress Test Anginal Classification: CCS III Heart Failure: NYHA Class: CCS I Cardiogenic Shock w/in 24Hrs: No Cardiac Arrest w/in 24Hrs: No Imaging studies past 6 months: Yes Stress studies past 6 months: Yes Stress Echocardiogram: Yes - Positive, Risk/Extent of Ischemia (Intermediate) Diagnostic Physician's Name: Venkatesh Mesa DO Status: Elective Closure Device Percutaneous Entry Location: Radial Closure Device: Radial Band Recommendations: Medical therapy and/or Counseling, PCI without planned CABG Lesion Segment Name: Ostial OM2 Culprit Artery: Yes Stenosis Prior to Rx (%): 98 Chronic Total Occlusion: No IVUS: No FFR: No Pre-Procedure PUJA Flow: 3 Previously Treated Lesion: No Lesion Complexity: High/C Lesion Length (mm): 12 Thrombus Present: Yes Bifurcation Lesion: Yes Guidewire Across Lesion: Yes Guidewire: Stenosis Post-Procedure (%): 90 Post-Procedure PUJA Flow: 3 Device(s) Deployed: No Intraprocedure Events Significant Dissection: No Perforation: No
[2017-04-29] MEDS ORDERED: ACETAMINOPHEN 325 MG TAB PO PRN (16:45)
[2017-04-29] MEDS ORDERED: SODIUM CHLORIDE 0.9% 1000ML 1,000 ML IV SCH (18:15)
--- NOTE | 2017-04-29 18:46 | DOBUTAMINE ECHO ---
*NOTICE TO RECEIVING [employer] AGENCY This information is strictly Confidential and protected under [place] law. [place] law prohibits you from making any further disclosure of this information unless further disclosure is expressly permitted by the written consent of the person to whom it pertains or is authorized by law. A general authorization for the release of medical or other information is not sufficient for this purpose. Hospital accepts no responsibility if the information is made available to any other person, INCLUDING THE PATIENT. Interpretation Summary * Name: GEORGE MOMIN Study Date: 04/29/2017 11:12 AM BP: 121/66 mmHg * Patient Location: [facility]\S\N286\S\2 HR: 76 * : 1950 (M/d/yyyy) Gender: Male Height: 65 in * Age: 67 yrs Ethnicity: [place] Weight: 177 lb * Ordering Physician: Dennis Tijerina * Referring Physician: MICAELA * Performed By: Tanisha Harper RDCS * * Reason For Study: CHEST PAIN * BSA: 1.9 m2 * Dobutamine stress echo is borderline positive for inducible ischemia. * Echocardiographic stress wall motion images failed to identify a regional wall motion abnormality, however, symptoms and ECG changes suggest dobutmaine induced ischemia. * Compared to prior study, changes are noted. * -- Conclusions -- * Ejection Fraction = 55-60%. * The inferoseptum appears hypokinetic at rest. * The base inferior wall appears hypokinetic at rest. * Inferoseptal wall motion is unchanged with stress. * Aortic valve sclerosis mild, without significant aortic valvular stenosis. * There is mild tricuspid regurgitation. * Grade I diastolic dysfunction, (abnormal relaxation pattern). Procedure Details * DOBUTAMINE ECHO, CPT#85989 * A contrast injection of Definity was performed to improve assessment of LV function. * Contrast was injected into an intravenous site in the left arm. * One vial of Definity ultrasound contrast was diluted in normal saline to a total volume of 10 ml. A total of '6' ml of solution was administered during imaging. * Lot # [id number] of Definity utilized for procedure. * Expiration date 1 JUN 06. * The attending nurse who injected the contrast agent was LINDA CUELLAR RN. Left Ventricle * There is mild concentric left ventricular hypertrophy. * The basal septum is thickened and angulated consistent with sigmoid septum. * Ejection Fraction = 55-60%. * The left ventricular ejection fraction increases normally with stress. The left ventricular end-systolic cavity size reduces post-stress (normal response). The left ventricular wall motion with stress is normal. * The inferoseptum appears hypokinetic at rest. The base inferior wall appears hypokinetic at rest. Inferoseptal wall motion is unchanged with stress. Right Ventricle * The right ventricle is grossly normal size. * The right ventricular systolic function is qualitatively normal. Atria * The left atrium is mildly dilated. * Right atrial size is normal. Mitral Valve * There is mild to moderate mitral annular calcification. * There is no mitral valve stenosis. * Significant mitral regurgitation is absent. Tricuspid Valve * The tricuspid valve is not well visualized, but is grossly normal. * There is no tricuspid stenosis. * There is mild tricuspid regurgitation. * Doppler findings do not suggest pulmonary hypertension. Aortic Valve * The aortic valve is trileaflet. * Aortic valve sclerosis mild, without significant aortic valvular stenosis. * No hemodynamically significant valvular aortic stenosis. * There is no significant aortic regurgitation. Pulmonic Valve * The pulmonary valve is not well seen, but the Doppler examination is normal without significant regurgitation or stenosis. Great Vessels * The aortic root and proximal ascending aorta are normal sized. Pericardium * There is no pericardial effusion. Stress Parameters * The baseline ECG displays normal sinus rhythm. * Stress ECG: Equivocal inferior 0.5 - 1mm horizontal ST depressions. * The stress portion of this study was personally supervised by the undersigned interpreting physician. * Rest heart rate was '76' BPM. * Rest blood pressure was '121/66' * Maximum heart rate achieved was 144 bpm. * Maximum heart rate was 92 % of maximum age-predicted heart rate. * Maximum blood pressure was '131/42' * Maximum Dobutamine infusion rate was '30' mcg/kg/min. * A total of 1.25 mg of intravenous Atropine was used to supplement Dobutamine for heart rate response. * Dobutamine infusion was terminated due to achieving target heart rate * A total of 7.5 mg of IV Metoprolol was administered to reverse Dobutamine-induced tachycardia. * The patient experienced moderate 'throat tightness' during dobutamine infusion. Symptoms consistent with patient's anginal equivalent. Left Ventricular Diastolic Function * Grade I diastolic dysfunction, (abnormal relaxation pattern). MMode 2D Measurements and Calculations IVSd 1.3 cm IVSs 1.6 cm LVIDd 3.9 cm LVIDs 2.8 cm LVPWd 1.3 cm LVPWs 1.4 cm IVS/LVPW 0.94 FS 27.5 % EDV(Teich) 66.0 ml ESV(Teich) 30.3 ml EF(Teich) 54.1 % EDV(cubed) 59.4 ml ESV(cubed) 22.6 ml EF(cubed) 62.0 % % IVS thick 28.3 % % LVPW thick 7.3 % LV mass(C)d 181.5 grams LV mass(C)dI 96.7 grams/m\S\2 LV mass(C)s 152.6 grams LV mass(C)sI 81.3 grams/m\S\2 SV(Teich) 35.7 ml SI(Teich) 19.0 ml/m\S\2 SV(cubed) 36.8 ml SI(cubed) 19.6 ml/m\S\2 Ao root diam 2.9 cm Ao root area 6.7 cm\S\2 LA dimension 3.9 cm LA/Ao 1.3 LVAd ap4 28.4 cm\S\2 LVLd ap4 8.2 cm EDV(MOD-sp4) 81.7 ml EDV(sp4-el) 83.1 ml LVAs ap4 15.9 cm\S\2 LVLs ap4 6.4 cm ESV(MOD-sp4) 32.3 ml ESV(sp4-el) 33.5 ml EF(MOD-sp4) 60.4 % EF(sp4-el) 59.6 % LVAd ap2 22.3 cm\S\2 LVLd ap2 7.6 cm EDV(MOD-sp2) 52.8 ml EDV(sp2-el) 55.6 ml LVAs ap2 12.9 cm\S\2 LVLs ap2 6.1 cm ESV(MOD-sp2) 23.4 ml ESV(sp2-el) 23.2 ml EF(MOD-sp2) 55.7 % EF(sp2-el) 58.2 % LVLd %diff -7.90 % EDV(MOD-bp) 67.4 ml LVLs %diff -4.83 % ESV(MOD-bp) 27.5 ml EF(MOD-bp) 59.1 % SV(MOD-sp4) 49.4 ml SI(MOD-sp4) 26.3 ml/m\S\2 SV(MOD-sp2) 29.4 ml SI(MOD-sp2) 15.7 ml/m\S\2 SV(MOD-bp) 39.9 ml SI(MOD-bp) 21.2 ml/m\S\2 SV(sp4-el) 49.5 ml SI(sp4-el) 26.4 ml/m\S\2 SV(sp2-el) 32.4 ml SI(sp2-el) 17.2 ml/m\S\2 Doppler Measurements and Calculations MV E max janak 57.7 cm/sec MV A max janak 69.4 cm/sec MV E/A 0.83 MV dec time 0.28 sec Ao V2 max 85.7 cm/sec Ao max PG 2.9 mmHg Ao max PG (full) 0.28 mmHg LV V1 max PG 2.7 mmHg LV V1 max 81.5 cm/sec TR max janak 217.2 cm/sec
[2017-04-29] MEDS ORDERED: ATORVASTATIN 40 MG TAB PO SCH (21:00)
--- NOTE | 2017-04-29 21:49 | Progress Note ---
Progress Note Date of Service Apr 29, 2017.
--- NOTE | 2017-04-29 21:54 | Progress Note ---
Internal Med Progress Note Date of Service: Apr 29, 2017. Provider Documentation: SUBJECTIVE: comfortable no complain of chest pain or SOB underwent cardiac cath earlier today , found to have severe CAD , attempt for PTCA was unsuccessful, medical management recommended OBJECTIVE: Vital Signs-as noted below Exam: General-no sign of discomfort Eyes-sclera non icteric ENT-NAD Neck-no thyromegaly , trachea midline Lungs-CTA no wheeze or rales Heart-regular S1.S2 Abdomen-soft non tender Extremities-no rash or deformity Neuro-AAO x3 ,no focal deficit Lab data as noted below. ASSESSMENT & PLAN: UNSTABLE ANGINA /SIGNIFICANT CAD : hx of NSTEMI in Mar 2017 , s/p PCI with 2 overlapping drug-eluting stents extending from the ostium the right coronary artery to the mid right coronary artery performed on 04/07/2017. -presents with chest /throat discomfort , similar anginal symptom noted in prior NV -Dobutamine stress -ECHO positive for ischemia -underwent cardiac cath today shows severe CAD: Ulcerated 90% proximal OM3 Patent mid RCA stent 50% proximal RPDA. attempt to place stent was unsuccessful pt is continued with Cardiac meds and antiangial meds] Cardiology following closely pt becomes symptomatic /recurrent angina will need to be transferred to Tertiary Care facility for PTCA vs thrombectomy DVT PROPHYLAXIS sub q heparin FULL CODE DISPOSITION continue to monitor in tele Vital Signs: Date Time Temp Pulse Resp B/P (MAP) Pulse Ox O2 Delivery O2 Flow Rate FiO2 04/29/17 21:26 87 18 115/58 (77) 99 Room Air 04/29/17 20:26 88 18 127/70 (89) 100 Room Air 04/29/17 20:00 99 Room Air 04/29/17 19:26 89 18 117/79 (92) 97 Nasal Cannula 2.0 04/29/17 18:26 98 18 145/84 (104) 98 Nasal Cannula 2.0 04/29/17 17:56 101 18 121/57 (78) 99 Nasal Cannula 2.0 04/29/17 17:30 106 18 120/93 (102) 100 Nasal Cannula 2.0 04/29/17 17:11 98 18 132/84 (100) 95 Nasal Cannula 2.0 04/29/17 16:56 100 18 155/71 (99) 95 Nasal Cannula 2.0 04/29/17 16:41 37.0 102 18 157/78 (104) 97 Room Air 04/29/17 16:12 96 16 149/99 (116) 96 Room Air 04/29/17 12:00 Room Air 04/29/17 11:37 36.9 72 18 115/72 (86) 95 04/29/17 08:00 Room Air 04/29/17 07:34 36.7 85 18 160/83 (108) 97 04/29/17 04:33 36.6 85 20 125/77 (93) 95 Room Air 04/29/17 04:00 Room Air 04/29/17 00:02 Room Air 04/29/17 00:00 Room Air 04/28/17 22:30 82 18 129/73 94 Room Air Lab Results: Results Past 24 Hours Test 04/29/17 01:55 04/29/17 07:28 04/29/17 15:03 04/29/17 15:37 Range/Units White Blood Count 8.47 4.8-10.8 K/uL Red Blood Count 3.83 4.7-6.1 M/uL Hemoglobin 12.3 14.0-18.0 g/dL Hematocrit 36.3 42-52 % Mean Corpuscular Volume 94.8 80-100 fL Mean Corpuscular Hemoglobin 32.1 25-34 pg Mean Corpuscular Hemoglobin Concent 33.9 32-36 g/dl Platelet Count 213 130-400 K/uL Mean Platelet Volume 9.5 7.4-10.4 fL Neutrophils (%) (Auto) 45.9 % Lymphocytes (%) (Auto) 36.0 % Monocytes (%) (Auto) 12.3 % Eosinophils (%) (Auto) 4.6 % Basophils (%) (Auto) 0.8 % Neutrophils # (Auto) 3.89 1.4-6.5 K/uL Lymphocytes # (Auto) 3.05 1.2-3.4 K/uL Monocytes # (Auto) 1.04 0.11-0.59 K/uL Eosinophils # (Auto) 0.39 0-0.5 K/uL Basophils # (Auto) 0.07 0-0.2 K/uL RDW Standard Deviation 46.5 36.4-46.3 fL RDW Coefficient of Variation 13.4 11.5-14.5 % Immature Granulocyte % (Auto) 0.4 % Immature Granulocyte # (Auto) 0.03 0.00-0.02 K/uL Sodium Level 139 140 136-145 mmol/L Potassium Level 3.3 3.7 3.5-5.1 mmol/L Chloride Level 106 107 98-107 mmol/L Carbon Dioxide Level 29 26 21-32 mmol/L Anion Gap 4.0 7.0 3-11 mmol/L Blood Urea Nitrogen 29 27 7-18 mg/dl Creatinine 1.56 1.32 0.60-1.40 mg/dl Est Creatinine Clear Calc Drug Dose 46.4 54.5 ml/min Estimated GFR () 53.2 65.2 Estimated GFR (Non- 45.9 56.2 BUN/Creatinine Ratio 18.5 20.6 10-20 Random Glucose 113 115 70-99 mg/dl Calcium Level 8.4 8.6 8.5-10.1 mg/dl Magnesium Level 2.0 1.8-2.4 mg/dl Total Bilirubin 0.3 0.2-1 mg/dl Aspartate Amino Transf (AST/SGOT) 11 15-37 U/L Alanine Aminotransferase (ALT/SGPT) 25 12-78 U/L Alkaline Phosphatase 82 45-117 U/L Troponin I < 0.015 < 0.015 0-0.045 ng/ml Total Protein 6.5 6.4-8.2 gm/dl Albumin 3.2 3.4-5.0 gm/dl Globulin 3.3 2.5-4.0 gm/dl Albumin/Globulin Ratio 1.0 0.9-2 Kaolin Activated Coagulation Time 202 263 94-140 SECONDS
[2017-04-30 00:01] VITALS: BP 121/68; PULSE 81; TEMP 36.5; O2SAT 95
[2017-04-30 04:49] VITALS: BP 123/78; PULSE 82; TEMP 36.5; O2SAT 93
[2017-04-30 06:53] LABS: CALCIUM 8.1 mg/dl (8.5-10.1); CREATININE 1.28 mg/dl (0.60-1.40); POTASSIUM 3.5 mmol/L (3.5-5.1)
[2017-04-30] MEDS: TIOTROPIUM BROMIDE 5 PUFF/90 MCG INH INH SCH (08:17)
[2017-04-30] MEDS: ASPIRIN 81 MG ECTAB PO SCH (08:17)
[2017-04-30] MEDS: FLUTICASONE PROPIONATE NA SPR 16 GM BTL NAE SCH (08:17)
[2017-04-30] MEDS: AMLODIPINE BESYLATE 5 MG TAB PO SCH (08:18)
[2017-04-30] MEDS: LORATADINE 10 MG TAB PO SCH (08:18)
[2017-04-30] MEDS: LOSARTAN/HCTZ 50-12.5 EA TAB PO SCH (08:19)
[2017-04-30] MEDS: METOPROLOL TARTRATE 50 MG TAB PO SCH (08:19)
[2017-04-30 08:20] VITALS: BP 143/80; PULSE 80; TEMP 36.9; O2SAT 96
[2017-04-30] MEDS: CLOPIDOGREL BISULFATE 75 MG TAB PO SCH (08:20)
[2017-04-30] MEDS: HEPARIN SOD 5000 UNIT/0.5 ML CARP SQ SCH (08:26)
[2017-04-30] MEDS ORDERED: PANTOprazole SOD 40 MG TAB PO SCH (09:00)
[2017-04-30] MEDS ORDERED: ISOSORBIDE MONONITRATE 30 MG TABCR PO ONE (10:00)
--- NOTE | 2017-04-30 10:09 | CARDIOLOGY PROGRESS NOTE ---
DATE: 04/30/2017 DATE: 04/30/2017 The patient seen and examined. Chart, medications, telemetry reviewed. SUBJECTIVE: The patient "slept well", had no further chest pain or discomfort overnight. Notes no further throat tightness. Notes no dizziness or lightheadedness. Notes no syncope or near syncope. Has been ambulatory in room this morning and feels well. OBJECTIVE: VITAL SIGNS: Heart rate is 80, blood pressure is 143/80. Telemetry reveals no arrhythmias. HEAD, EYES, EARS, NOSE, AND THROAT: Normocephalic, atraumatic. NECK: Thin. There is no jugular venous distention. No carotid bruits. Carotid pulses are 2/4 without delay. LUNGS: Clear with good aeration to both bases. CARDIOVASCULAR: Regular. There is no S3 gallop. EXTREMITIES: There is ecchymoses at bilateral groin puncture sites without hematoma. Right radial access site is healed well. Bandage in place. There is no peripheral edema. LABORATORY STUDIES: Sodium is 138, potassium is 3.5, chloride is 106, bicarbonate is 27, BUN is 20, creatinine is 1.28. Cardiac catheterization results as noted with study demonstrating widely patent mid right coronary artery stent and ulcerated narrowing of the obtuse marginal branch. Attempts to open this vessel were unsuccessful due to the anatomy and type and degree of stenosis. IMPRESSION AND PLAN: A 67-year-old male admitted with a history of acute coronary intervention of the right coronary artery lesion in March 2017 with new worsening of throat discomfort likely multifactorial in nature including angina, medication and possible gastroesophageal reflux complaints. Symptoms have improved today. RECOMMENDATIONS: We will plan to intensify medical therapy. Plan to discharge home later today with close clinical followup as an outpatient. Specifically, will add isosorbide 30 mg per day mononitrate. Will increase metoprolol to 75 mg a.m. and 50 mg p.m. Continue Protonix. Planned followup with Taisha Scott is already scheduled on 05/27/2017. The patient to report new symptoms or complaints. Discussed in detail with the patient.
[2017-04-30] MEDS ORDERED: METOPROLOL TARTRATE 25 MG TAB PO ONE (10:30)
[2017-04-30 12:10] VITALS: BP 121/67; PULSE 75; TEMP 36.6; O2SAT 96
[2017-04-30] MEDS ORDERED: METO50TA16 PO (15:04)
[2017-04-30] MEDS ORDERED: IMDSR30 PO (15:04)
[2017-04-30] MEDS ORDERED: PRT40 PO (15:04)
[2017-04-30] MEDS ORDERED: LPR25 PO (15:04)
--- NOTE | 2017-04-30 15:07 | Discharge Instructions ---
Discharge Instructions Date of Service Apr 30, 2017. Admission Reason for Admission: Throat Discomfort Discharge Discharge Diagnosis / Problem: UNSTABLE ANGINA /CORONARY ARTERY DISEASE Discharge Goals Goal(s): Improve function, Increase independence, Improve disease control, Diagnostic testing, Therapeutic intervention Activity Recommendations Activity Limitations: as noted below ACTIVITY RECOMMENDATIONS: Excess manipulation of the wrist should be avoided for the next 24-48 hours. * No lifting over 2 pounds (approximately a 1/2 gallon of milk) with the utilized arm for 24 hours. * No strenuous activity such as bowling or tennis for 3 days. * Keep the site of the procedure covered with a bandage for 24 hours. *You may shower the day after the procedure. Do not take a tub bath or submerge the puncture site in water for the next 3 days. *Do not operate any motorized equipment for 3 days. SPECIAL CARE INSTRUCTIONS: The site may be slightly bruised and sore following your procedure. Should any of the following occur, contact the Dr. who performed your procedure. 1. Redness/inflammation, swelling, chills, or fever, or colored drainage at procedure site within 3-7 days after your procedure. 2. Coldness, discoloration, ongoing numbness, severe pain, or swelling. Expect mild tingling of hand and tenderness at the puncture site for up to three days. If this persists beyond three days, or other symptoms develop, notify the Dr. who performed your procedure. BLEEDING: If the procedure site on your wrist begins to bleed, do not panic 1. Place 1 or 2 fingers firmly just slightly above the insertion site to stop the bleeding. You may be able to feel your pulse as you hold pressure. 2. Lift your finger after 5 minutes to see if the bleeding has stopped. 3. Once the bleeding has stopped, gently wipe the wrist area clean with a bandage. * If the bleeding from your wrist does not stop after 10 minutes, or if there is a large amount of bleeding or spurting, call 911 (do not drive yourself to the hospital). SKIN IRRITATION: * You may experience some redness and/or swelling in the area where radiation was administered. If any skin irritation occurs, please contact your family physician. FOLLOW UP VISIT: Keep any scheduled doctor appointments. . Instructions / Follow-Up Instructions / Follow-Up Home Care: * Take your medications exactly as directed. Don't skip doses. * Remember that recovery after a heart attack takes time. Plan to rest for at lease 4-8 weeks while you recover. Then return to normal activity when your doctor says it's okay. * Ask your doctor about joining a heart rehabilitation program. * Tell your doctor if you are feeling depressed. Feelings of sadness are common after a heart attack, but it is important that you speak to someone if you are feeling overwhelmed by these feelings. * If you are having chest pain, call 911 for an ambulance. Do NOT drive yourself to the hospital. * Ask your family members to learn CPR. * Learn to take your own blood pressure and pulse. Keep a record of your results. Ask your doctor when you should seek emergency medical attention. He or she will tell you which blood pressure reading is dangerous. Lifestyle Changes: * Maintain a healthy weight. Get help to lose any extra pounds. * Cut back on salt. * Limit canned, dried, packaged, and fast foods. * Don't add salt to your food. * Season foods with herbs instead of salt when you cook. * Break the smoking habit. Enroll in a stop-smoking program to improve your chances of success. * Limit fatty foods. * Ask your doctor about having your lipid levels checked regularly. * Build up your activity according to your doctor's recommendation. * Ask your doctor when it's okay to resume sexual activity. * Tell your doctor about any erectile dysfunction (ED) medication you are taking. Some ED medications are not safe if you take certain heart medications. * Try to manage stress. Follow Up: It is important for you to keep your follow up appointments with your medical provider. HOSPITAL FOLLOW UP :05/02/2017 11:00 AM Earl Simmons MD [facility] CARDIOLOGY FOLLOW UP :05/27/2017 11:30 AM Taisha Scott PA-C Cardiology, [facility] Hospital Diet Patient's current hospital diet: AHA Diet (Heart Healthy) Discharge Diet Recommended Diet: AHA Diet (Heart Healthy) Procedures Procedures Performed: Procedure(s) Performed 04/29/17 Coronary Angiography, Left Heart Cath, Ultrasound Guided Vascular Access Summary of Findings Ulcerated 90% proximal OM3 Patent mid RCA stent 50% proximal RPDA. Summary: 1. Unsuccessful PCI of ostial OM2 MEDICAL MANAGEMENT RECOMMENDED Pending Studies Studies pending at discharge: no Laboratory Results Lipid Panel Test 04/06/17 06:08 Range/Units Triglycerides Level 151 H 0-150 mg/dl Cholesterol Level 139 0-200 mg/dl HDL Cholesterol 55 mg/dl Cholesterol/HDL Ratio 2.5 LDL Cholesterol, Calculated 54 mg/dl Medical Emergencies . Who to Call and When: Medical Emergencies: If at any time you feel your situation is an emergency, please call 911 immediately. Call 911 immediately or go to your nearest Emergency Room if you experience any of the following: Warning Signs and Symptoms of a Heart Attack * Chest pain that is not relieved by medication * Shortness of breath . Non-Emergent Contact Non-Emergency issues call your: Primary Care Provider . . "Provider Documentation" section prepared by Nazanin Clarke. . AMI Core Measures Reason no ASA as I/P: Treatment provided - N/A Reason no ASA at D/C: Treatment provided - N/A Reason no statin as I/P: Treatment provided - N/A Reason no statin at D/C: Treatment provided - N/A VTE Core Measure Inpt VTE Proph given/why not?: Unfractionated heparin SQ
[2017-04-30 15:49] VITALS: BP 120/67; PULSE 72; TEMP 36.6; O2SAT 95
--- NOTE | 2017-04-30 16:11 | Discharge Summary ---
Discharge Summary Date of Service Apr 30, 2017. Discharge Summary Admission Date: Apr 29, 2017 at 21:56 Discharge Date: Apr 30, 2017 Discharge Disposition: Home Principal Diagnosis: UNSTABLE ANGINA /CORONARY ARTERY DISEASE Consultations: [facility] Medication Reconciliation New Medications: Isosorbide Mononitrate (Isosorbide Mononitrate ER) 30 Mg Tabcr 30 MG PO QAM for 30 Days, #30 TABS 3 Refills Metoprolol Tartrate (Lopressor) 25 Mg Tab 75 MG PO QAM for 30 Days, #90 TAB 3 Refills Metoprolol Tartrate (Lopressor) (Lopressor) 50 Mg Tab 50 MG PO PM for 30 Days, #30 TAB 3 Refills Pantoprazole (Pantoprazole Sodium) 40 Mg Tab 40 MG PO QAM for 30 Days, #30 TAB 3 Refills Continued Medications: Albuterol Hfa (Ventolin Hfa) 200 Puffs/50223 Mcg Aers 2 PUFFS INH Q4 PRN for SOB/Wheezing, #1 INHALER Amlodipine Besylate (Norvasc) 10 Mg Tab 10 MG PO QAM, TAB Aspirin (Aspirin Ec) 81 Mg Tab 81 MG PO DAILY Atorvastatin (Lipitor) 80 Mg Tab 80 MG PO QPM, TAB Clopidogrel (Plavix) 75 Mg Tab 75 MG PO QAM, TAB Ergocalciferol (Vitamin D 54511 Unit) 50,000 Unit Cap 1 CAP PO WK, #4 CAP 2 Refills Fluticasone Propionate (Nasal) (Flonase Allergy Relief) 50 Mcg/Act Spr 2 SPRY KYLEE DAILY Folic Acid (Folvite) 1 Mg Tab 1 MG PO DAILY, TAB Hctz/Losartan (Hyzaar 25MG/100MG) Tab 1 TAB PO QAM, 0 Refills Loratadine (Claritin) 10 Mg Tab 10 MG PO DAILY, TAB Nitroglycerin (Nitrostat) 0.4 Mg Sub 0.4 MG UT UD PRN for Chest Pain, BTL Polyethylene Glycol-Propylene (Systane Ultra) 1 Nadira Nadira 1-2 DROPS OP UD PRN for dry eyes, #15 ML 1 Refill Tiotropium [place] (Spiriva Handihaler) 30 Puff/540 Mcg Aerp 1 CAP INH QAM, INHALER Discontinued Medications: Metoprolol Tartrate (Lopressor) (Lopressor) 50 Mg Tab 50 MG PO BID, 0 Refills Admission Information HPI (per Admitting provider): Chief complaint throat tightness Pertinent Past medical history / History of present illness non ST segment elevation myocardial infarction in March 2017 (symptoms preceding the cardiac cath was tightness in his throat that waxed and waned and ultimately came back to a more severe degree with associated discomfort radiating down his left arm) patient underwent PCI with 2 overlapping drug-eluting stents extending from the ostium the right coronary artery to the mid right coronary artery performed on 04/07/2017. patient has been following beef grinder Dr. Hoover, last seen on 04/26/17, and reported to him since discharge from the hospital he has been having occasional episodes of dyspnea or throat tightness and so Dr. Hoover changed patient's medication from Brilinta to Plavix because he suspected that perhaps the symptoms could have bee side effect from Brilinta had recommended pharmacologic nuclear stress test in 1 week from the 04/26/17 office visit Patient presents to the ED on 04/27/16 after symptoms of throat discomfort around 5 AM on 04/27/16 and returned on evening time, denies dyspnea, is breathing on room air, discomfort relieved after nitro sublingual in the ED, also given 243 mg of aspirin in the ED. Patient denies chest or back pain or edema. Physical Exam (per Admitting): General Appearance: no apparent distress Head: normocephalic, atraumatic Eyes: normal inspection, EOMI, sclerae normal ENT: normal ENT inspection, hearing grossly normal, pharynx normal Neck: supple, no JVD, trachea midline Respiratory/Chest: chest non-tender, lungs clear, normal breath sounds, no respiratory distress, no accessory muscle use Cardiovascular: regular rate, rhythm, no edema, no JVD, normal peripheral pulses Abdomen/GI: normal bowel sounds, non tender, soft, no organomegaly, no pulsatile mass Back: normal inspection, no muscle spasm, normal range of motion Extremities/Musculoskelatal: normal inspection, no calf tenderness, normal capillary refill, no pedal edema, normal range of motion, non-tender Neurologic/Psych: no motor/sensory deficits, alert, normal mood/affect, oriented x 3 Skin: normal color, warm/dry, no rash Hospital Course UNSTABLE ANGINA /SIGNIFICANT CAD : hx of NSTEMI in Mar 2017 , s/p PCI with 2 overlapping drug-eluting stents extending from the ostium the right coronary artery to the mid right coronary artery performed on 04/07/2017. -presents with chest /throat discomfort , similar anginal symptom noted in prior [place] -Dobutamine stress -ECHO positive for ischemia -underwent cardiac cath today shows severe CAD: Ulcerated 90% proximal OM3 Patent mid RCA stent 50% proximal RPDA. attempt to place stent was unsuccessful pt is continued with Cardiac meds and antiangial meds] Cardiology following closely pt becomes symptomatic /recurrent angina will need to be transferred to T[facility]iary Care facility for PTCA vs thrombectomy DVT PROPHYLAXIS sub q heparin FULL CODE DISPOSITION continue to monitor in tele Total time spent on discharge = 40mins This includes examination of the patient, discharge planning, medication reconciliation, and communication with other providers. Discharge Instructions Discharge Instructions Date of Service Apr 30, 2017. Admission Reason for Admission: Throat Discomfort Discharge Discharge Diagnosis / Problem: UNSTABLE ANGINA /CORONARY ARTERY DISEASE Discharge Goals Goal(s): Improve function, Increase independence, Improve disease control, Diagnostic testing, Therapeutic intervention Activity Recommendations Activity Limitations: as noted below ACTIVITY RECOMMENDATIONS: Excess manipulation of the wrist should be avoided for the next 24-48 hours. * No lifting over 2 pounds (approximately a 1/2 gallon of milk) with the utilized arm for 24 hours. * No strenuous activity such as bowling or tennis for 3 days. * Keep the site of the procedure covered with a bandage for 24 hours. *You may shower the day after the procedure. Do not take a tub bath or submerge the puncture site in water for the next 3 days. *Do not operate any motorized equipment for 3 days. SPECIAL CARE INSTRUCTIONS: The site may be slightly bruised and sore following your procedure. Should any of the following occur, contact the Dr. who performed your procedure. 1. Redness/inflammation, swelling, chills, or fever, or colored drainage at procedure site within 3-7 days after your procedure. 2. Coldness, discoloration, ongoing numbness, severe pain, or swelling. Expect mild tingling of hand and tenderness at the puncture site for up to three days. If this persists beyond three days, or other symptoms develop, notify the Dr. who performed your procedure. BLEEDING: If the procedure site on your wrist begins to bleed, do not panic 1. Place 1 or 2 fingers firmly just slightly above the insertion site to stop the bleeding. You may be able to feel your pulse as you hold pressure. 2. Lift your finger after 5 minutes to see if the bleeding has stopped. 3. Once the bleeding has stopped, gently wipe the wrist area clean with a bandage. * If the bleeding from your wrist does not stop after 10 minutes, or if there is a large amount of bleeding or spurting, call 911 (do not drive yourself to the hospital). SKIN IRRITATION: * You may experience some redness and/or swelling in the area where radiation was administered. If any skin irritation occurs, please contact your family physician. FOLLOW UP VISIT: Keep any scheduled doctor appointments. . Instructions / Follow-Up Instructions / Follow-Up Home Care: * Take your medications exactly as directed. Don't skip doses. * Remember that recovery after a heart attack takes time. Plan to rest for at lease 4-8 weeks while you recover. Then return to normal activity when your doctor says it's okay. * Ask your doctor about joining a heart rehabilitation program. * Tell your doctor if you are feeling depressed. Feelings of sadness are common after a heart attack, but it is important that you speak to someone if you are feeling overwhelmed by these feelings. * If you are having chest pain, call 911 for an ambulance. Do NOT drive yourself to the hospital. * Ask your family members to learn CPR. * Learn to take your own blood pressure and pulse. Keep a record of your results. Ask your doctor when you should seek emergency medical attention. He or she will tell you which blood pressure reading is dangerous. Lifestyle Changes: * Maintain a healthy weight. Get help to lose any extra pounds. * Cut back on salt. * Limit canned, dried, packaged, and fast foods. * Don't add salt to your food. * Season foods with herbs instead of salt when you cook. * Break the smoking habit. Enroll in a stop-smoking program to improve your chances of success. * Limit fatty foods. * Ask your doctor about having your lipid levels checked regularly. * Build up your activity according to your doctor's recommendation. * Ask your doctor when it's okay to resume sexual activity. * Tell your doctor about any erectile dysfunction (ED) medication you are taking. Some ED medications are not safe if you take certain heart medications. * Try to manage stress. Follow Up: It is important for you to keep your follow up appointments with your medical provider. HOSPITAL FOLLOW UP :05/02/2017 11:00 AM Earl Simmons MD [facility] CARDIOLOGY FOLLOW UP :05/27/2017 11:30 AM Taisha Scott PA-C Cardiology, [facility] Current Hospital Diet Patient's current hospital diet: AHA Diet (Heart Healthy) Discharge Diet Recommended Diet: AHA Diet (Heart Healthy) Pending Studies Studies pending at discharge: no Laboratory Results Lipid Panel Test 04/06/17 06:08 Range/Units Triglycerides Level 151 H 0-150 mg/dl Cholesterol Level 139 0-200 mg/dl HDL Cholesterol 55 mg/dl Cholesterol/HDL Ratio 2.5 LDL Cholesterol, Calculated 54 mg/dl Medical Emergencies . Who to Call and When: Medical Emergencies: If at any time you feel your situation is an emergency, please call 911 immediately. Call 911 immediately or go to your nearest Emergency Room if you experience any of the following: Warning Signs and Symptoms of a Heart Attack * Chest pain that is not relieved by medication * Shortness of breath . Non-Emergent Contact Non-Emergency issues call your: Primary Care Provider . . "Provider Documentation" section prepared by Nazanin Clarke. . AMI Core Measures Reason no ASA as I/P: Treatment provided - N/A Reason no ASA at D/C: Treatment provided - N/A Reason no statin as I/P: Treatment provided - N/A Reason no statin at D/C: Treatment provided - N/A VTE Core Measure Inpt VTE Proph given/why not?: Unfractionated heparin SQ
[2017-04-30 16:33] VITALS: BP 120/67; PULSE 72; TEMP 36.6; O2SAT 95
[2017-04-30] MEDS ORDERED: METOPROLOL TARTRATE 50 MG TAB PO SCH (21:00)
[2017-05-01] MEDS ORDERED: ISOSORBIDE MONONITRATE 30 MG TABCR PO SCH (09:00)
[2017-05-01] MEDS ORDERED: METOPROLOL TARTRATE 25 MG TAB PO SCH (09:00)
== END 2017-04-30 17:00 | disposition home or self-care (01) | DRG 287 ==
LOC: C.EDB 19:00 → C.MED 22:04 → ENRESERV 22:45 → C.2E 04-29 16:09 → OBSVTOIN 04-29 21:56
PROVIDERS: ADMIT Hospitalist; ATTEND Hospitalist
PROC: B2111ZZ Fluoroscopy of Multiple Coronary Arteries using Low Osmolar Contrast (ICD-10-PCS; 2017-04-29)
PROC: 4A023N7 Measurement of Cardiac Sampling and Pressure, Left Heart, Percutaneous Approach (ICD-10-PCS; 2017-04-29)
PROC: 02JA3ZZ Inspection of Heart, Percutaneous Approach (ICD-10-PCS; principal; 2017-04-29 13:27)
DX: I25.110 Atherosclerotic heart disease of native coronary artery with unstable angina pectoris (principal); J61 Pneumoconiosis due to asbestos and other mineral fibers; J44.9 Chronic obstructive pulmonary disease, unspecified; E78.5 Hyperlipidemia, unspecified; I10 Essential (primary) hypertension; M48.062 Spinal stenosis, lumbar region with neurogenic claudication; Z98.1 Arthrodesis status; Z95.1 Presence of aortocoronary bypass graft; I25.2 Old myocardial infarction; Z79.82 Long term (current) use of aspirin; I25.82 Chronic total occlusion of coronary artery; Z95.5 Presence of coronary angioplasty implant and graft